=== PATIENT | male | born 1935 | race Hispanic/Latino ===

== ENCOUNTER 2018-06-14 12:32 | Inpatient (IN) | payer MEDICARE ==
[2018-06-14] MEDS ORDERED: NACL 0.9% 1000 ML 1,000 ML IV ONE (12:46)
--- NOTE | 2018-06-14 12:49 | Emergency Department Report ---
ED Altered Mental Status HPI - General Stated Complaint: ALTERED MENTAL STATUS Time Seen by Provider: 06/14/18 12:35 Source: EMS Mode of arrival: Stretcher Limitations: Altered Mental Status - History of Present Illness Initial Comments: Is a 83-year-old male is brought in by EMS for altered mental status. EMS states they were called for a welfare check had 2 right into the house and found the patient in the upstairs bathroom sitting on the floor. Patient is oriented to self only is verbal and follows commands. Patient's D stick in route was 175. Patient was diaphoretic per EMS. MD Complaint: altered mental status, confusion, weakness Severity: severe - Related Data Home Medications Medication Instructions Recorded Confirmed Last Taken Unobtainable 06/14/18 06/14/18 Unknown Allergies Allergy/AdvReac Type Severity Reaction Status Date / Time Unable to Assess Allergy Unverified 06/14/18 12:56 ED Review of Systems ROS: Stated complaint: ALTERED MENTAL STATUS Other details as noted in HPI Comment: Unobtainable due to pts medical conditions ED Past Medical Hx - Past Medical History Previous Medical History?: Yes Hx Hypertension: Yes Hx Diabetes: Yes Hx Psychiatric Treatment: Yes (schizo) - Surgical History Past Surgical History?: No - Family History Family history: no significant - Social History Smoking Status: Unknown if ever smoked Substance Use Type: None - Medications Home Medications: Home Medications Medication Instructions Recorded Confirmed Last Taken Type Unobtainable 06/14/18 06/14/18 Unknown History ED Physical Exam - General Limitations: Altered Mental Status General appearance: alert, in no apparent distress, obese - Head Head exam: Present: atraumatic, normocephalic - Eye Eye exam: Present: normal appearance, PERRL Pupils: Present: normal accommodation - ENT ENT exam: Present: mucous membranes dry - Neck Neck exam: Present: normal inspection - Respiratory Respiratory exam: Present: normal lung sounds bilaterally. Absent: respiratory distress - Cardiovascular Cardiovascular Exam: Present: regular rate, normal rhythm. Absent: systolic murmur, diastolic murmur, rubs, gallop - GI/Abdominal GI/Abdominal exam: Present: soft, normal bowel sounds - Rectal Rectal exam: Present: deferred - Extremities Exam Extremities exam: Present: normal inspection, full ROM - Back Exam Back exam: Present: normal inspection - Neurological Exam Neurological exam: Present: alert, altered - Expanded Neurological Exam Expanded Best Eye Response (Lowell): (4) open spontaneously Best Motor Response (Lowell): (6) obeys commands Best Verbal Response (Betty): (4) confused conversation Lowell Total: 14 - Skin Skin exam: Present: warm, dry, intact, normal color. Absent: rash - Assessment Assessment Interval: Baseline - Level of Consciousness 1a. Level of Consciousness: alert - LOC Questions 1b. LOC Questions: answers 1 question correctly - LOC Command 1c. LOC Commands: performs tasks correctly - Best Gaze 2. Best Gaze: normal - Visual 3. Visual: no visual loss - Facial Palsy 4. Facial Palsy: normal symmetrical movement - Motor Arm 5b. Motor Arm Right: no drift 5a. Motor Arm Left: no drift - Motor Leg 6a. Motor Leg Left: no drift 6b. Motor Leg Right: no drift - Limb Ataxia 7. Limb Ataxia: absent - Sensory 8. Sensory: normal - Best Language 9. Best Language: no aphasia - Dysarthria 10. Dysarthria: normal - Extinction and Inattention 11. Extinction/Inattention: no abnormality - Scoring Total Score: 1 Stroke Severity: Minor Stroke ED Course Vital Signs 06/14/18 06/14/18 06/14/18 12:40 12:46 13:00 Temperature 100.4 F H Pulse Rate 78 80 76 Respiratory 16 28 H 24 Rate Blood Pressure 151/77 151/77 O2 Sat by Pulse 100 96 94 Oximetry 06/14/18 06/14/18 06/14/18 13:04 13:16 13:30 Temperature Pulse Rate Respiratory Rate Blood Pressure 152/71 152/71 O2 Sat by Pulse 100 95 Oximetry 06/14/18 06/14/18 06/14/18 14:13 14:40 14:55 Temperature Pulse Rate 96 H Respiratory 26 H 38 H Rate Blood Pressure 152/71 152/71 152/71 O2 Sat by Pulse Oximetry 06/14/18 06/14/18 16:16 16:30 Temperature Pulse Rate 74 64 Respiratory 14 19 Rate Blood Pressure 152/71 O2 Sat by Pulse 94 Oximetry - Reevaluation(s) Reevaluation #1: Family bedside. Family states he is on lithium for schizophrenia. Patient has a past medical history of hypertension, hyperlipidemia, and diabetes. 06/14/18 15:13 Reevaluation #2: Dr. Wiggins consulted for admission. Dr. Wiggins to [facility] care. Case discussed fully with Dr. Wiggins. Discussed plan of care with patient and family. Family agrees with plan of care and admission. pt more active in bed. 06/14/18 18:51 - Lab Data Result diagrams: 06/14/18 16:22 06/14/18 Unknown Lab Results 06/14/18 06/14/18 06/14/18 Range/Units 13:50 14:05 16:22 WBC 15.9 H (4.5-11.0) K/mm3 RBC 5.04 H (3.65-5.03) M/mm3 Hgb 14.9 (11.8-15.2) gm/dl Hct 45.5 (35.5-45.6) % MCV 90 (84-94) fl MCH 30 (28-32) pg MCHC 33 (32-34) % RDW 15.2 (13.2-15.2) % Plt Count 204 (140-440) K/mm3 Lymph % (Auto) 8.0 L (13.4-35.0) % Hall % (Auto) 8.9 H (0.0-7.3) % Eos % (Auto) 0.0 (0.0-4.3) % Baso % (Auto) 0.2 (0.0-1.8) % Lymph # 1.3 (1.2-5.4) K/mm3 Hall # 1.4 H (0.0-0.8) K/mm3 Eos # 0.0 (0.0-0.4) K/mm3 Baso # 0.0 (0.0-0.1) K/mm3 Seg Neutrophils % 82.9 H (40.0-70.0) % Seg Neutrophils # 13.2 H (1.8-7.7) K/mm3 Sodium (137-145) mmol/L Potassium (3.6-5.0) mmol/L Chloride (98-107) mmol/L Carbon Dioxide (22-30) mmol/L Anion Gap mmol/L BUN (9-20) mg/dL Creatinine (0.8-1.5) mg/dL Estimated GFR ml/min BUN/Creatinine Ratio % Glucose (75-100) mg/dL POC Glucose 149 H (70-105) Lactic Acid (0.7-2.0) mmol/L Calcium (8.4-10.2) mg/dL Total Bilirubin (0.1-1.2) mg/dL AST (5-40) units/L ALT (7-56) units/L Alkaline Phosphatase (35-129) units/L Ammonia 40.0 (25-60) umol/L Troponin T (0.00-0.029) ng/mL Total Protein (6.3-8.2) g/dL Albumin (3.9-5) g/dL Albumin/Globulin Ratio % Triglycerides (2-149) mg/dL Cholesterol (50-199) mg/dL LDL Cholesterol Direct (50-130) mg/dL HDL Cholesterol (40-59) mg/dL Cholesterol/HDL Ratio % Urine Color (Yellow) Urine Turbidity (Clear) Urine pH (5.0-7.0) Ur Specific [place] (1.003-1.030) Urine Protein (Negative) mg/dL Urine Glucose (UA) (Negative) mg/dL Urine Ketones (Negative) mg/dL Urine Blood (Negative) Urine Nitrite (Negative) Urine Bilirubin (Negative) Urine Urobilinogen (<2.0) mg/dL Ur Leukocyte Esterase (Negative) Urine WBC (Auto) (0.0-6.0) /HPF Urine RBC (Auto) (0.0-6.0) /HPF U Epithel Cells (Auto) (0-13.0) /HPF Urine Bacteria (Auto) (Negative) /HPF Urine WBC Clumps /HPF Hyaline Casts /LPF Granular Casts /LPF Urine Mucus /HPF Salicylates (2.8-20.0) mg/dL Urine Opiates Screen Urine Methadone Screen Acetaminophen (10.0-30.0) ug/mL Ur Barbiturates Screen Ur Phencyclidine Scrn Ur Amphetamines Screen U Benzodiazepines Scrn Neola (0.0-1.2) mmol/L Urine Cocaine Screen U Marijuana (THC) Screen Drugs of Abuse Note Plasma/Serum Alcohol (0-0.07) % 06/14/18 06/14/18 06/14/18 Range/Units 16:22 16:22 16:44 WBC (4.5-11.0) K/mm3 RBC (3.65-5.03) M/mm3 Hgb (11.8-15.2) gm/dl Hct (35.5-45.6) % MCV (84-94) fl MCH (28-32) pg MCHC (32-34) % RDW (13.2-15.2) % Plt Count (140-440) K/mm3 Lymph % (Auto) (13.4-35.0) % Hall % (Auto) (0.0-7.3) % Eos % (Auto) (0.0-4.3) % Baso % (Auto) (0.0-1.8) % Lymph # (1.2-5.4) K/mm3 Hall # (0.0-0.8) K/mm3 Eos # (0.0-0.4) K/mm3 Baso # (0.0-0.1) K/mm3 Seg Neutrophils % (40.0-70.0) % Seg Neutrophils # (1.8-7.7) K/mm3 Sodium (137-145) mmol/L Potassium (3.6-5.0) mmol/L Chloride (98-107) mmol/L Carbon Dioxide (22-30) mmol/L Anion Gap mmol/L BUN (9-20) mg/dL Creatinine (0.8-1.5) mg/dL Estimated GFR ml/min BUN/Creatinine Ratio % Glucose (75-100) mg/dL POC Glucose (70-105) Lactic Acid 2.90 H* (0.7-2.0) mmol/L Calcium (8.4-10.2) mg/dL Total Bilirubin (0.1-1.2) mg/dL AST (5-40) units/L ALT (7-56) units/L Alkaline Phosphatase (35-129) units/L Ammonia (25-60) umol/L Troponin T (0.00-0.029) ng/mL Total Protein (6.3-8.2) g/dL Albumin (3.9-5) g/dL Albumin/Globulin Ratio % Triglycerides (2-149) mg/dL Cholesterol (50-199) mg/dL LDL Cholesterol Direct (50-130) mg/dL HDL Cholesterol (40-59) mg/dL Cholesterol/HDL Ratio % Urine Color Yellow (Yellow) Urine Turbidity Clear (Clear) Urine pH 5.0 (5.0-7.0) Ur Specific [place] 1.020 (1.003-1.030) Urine Protein 100 mg/dl (Negative) mg/dL Urine Glucose (UA) 50 (Negative) mg/dL Urine Ketones Tr (Negative) mg/dL Urine Blood Lg (Negative) Urine Nitrite Neg (Negative) Urine Bilirubin Neg (Negative) Urine Urobilinogen < 2.0 (<2.0) mg/dL Ur Leukocyte Esterase Neg (Negative) Urine WBC (Auto) 6.0 (0.0-6.0) /HPF Urine RBC (Auto) 2.0 (0.0-6.0) /HPF U Epithel Cells (Auto) < 1.0 (0-13.0) /HPF Urine Bacteria (Auto) 1+ (Negative) /HPF Urine WBC Clumps Few /HPF Hyaline Casts 1 /LPF Granular Casts 3 /LPF Urine Mucus Few /HPF Salicylates (2.8-20.0) mg/dL Urine Opiates Screen Urine Methadone Screen Acetaminophen (10.0-30.0) ug/mL Ur Barbiturates Screen Ur Phencyclidine Scrn Ur Amphetamines Screen U Benzodiazepines Scrn [place]ola 1.5 H (0.0-1.2) mmol/L Urine Cocaine Screen U Marijuana (THC) Screen Drugs of Abuse Note Plasma/Serum Alcohol (0-0.07) % 06/14/18 06/14/18 06/14/18 Range/Units 16:44 Unknown Unknown WBC (4.5-11.0) K/mm3 RBC (3.65-5.03) M/mm3 Hgb (11.8-15.2) gm/dl Hct (35.5-45.6) % MCV (84-94) fl MCH (28-32) pg MCHC (32-34) % RDW (13.2-15.2) % Plt Count (140-440) K/mm3 Lymph % (Auto) (13.4-35.0) % Hall % (Auto) (0.0-7.3) % Eos % (Auto) (0.0-4.3) % Baso % (Auto) (0.0-1.8) % Lymph # (1.2-5.4) K/mm3 Hall # (0.0-0.8) K/mm3 Eos # (0.0-0.4) K/mm3 Baso # (0.0-0.1) K/mm3 Seg Neutrophils % (40.0-70.0) % Seg Neutrophils # (1.8-7.7) K/mm3 Sodium 146 H (137-145) mmol/L Potassium 4.1 (3.6-5.0) mmol/L Chloride 99.8 (98-107) mmol/L Carbon Dioxide 22 (22-30) mmol/L Anion Gap 28 mmol/L BUN 60 H (9-20) mg/dL Creatinine 2.9 H (0.8-1.5) mg/dL Estimated GFR 21 ml/min BUN/Creatinine Ratio 21 % Glucose 170 H (75-100) mg/dL POC Glucose (70-105) Lactic Acid 3.40 H* (0.7-2.0) mmol/L Calcium 11.2 H (8.4-10.2) mg/dL Total Bilirubin 0.80 (0.1-1.2) mg/dL AST 51 H (5-40) units/L ALT 24 (7-56) units/L Alkaline Phosphatase 110 (35-129) units/L Ammonia (25-60) umol/L Troponin T 0.036 H (0.00-0.029) ng/mL Total Protein 8.3 H (6.3-8.2) g/dL Albumin 5.0 (3.9-5) g/dL Albumin/Globulin Ratio 1.5 % Triglycerides 156 H (2-149) mg/dL Cholesterol 73 (50-199) mg/dL LDL Cholesterol Direct 17 L (50-130) mg/dL HDL Cholesterol 33 L (40-59) mg/dL Cholesterol/HDL Ratio 2.21 % Urine Color (Yellow) Urine Turbidity (Clear) Urine pH (5.0-7.0) Ur Specific [place] (1.003-1.030) Urine Protein (Negative) mg/dL Urine Glucose (UA) (Negative) mg/dL Urine Ketones (Negative) mg/dL Urine Blood (Negative) Urine Nitrite (Negative) Urine Bilirubin (Negative) Urine Urobilinogen (<2.0) mg/dL Ur Leukocyte Esterase (Negative) Urine WBC (Auto) (0.0-6.0) /HPF Urine RBC (Auto) (0.0-6.0) /HPF U Epithel Cells (Auto) (0-13.0) /HPF Urine Bacteria (Auto) (Negative) /HPF Urine WBC Clumps /HPF Hyaline Casts /LPF Granular Casts /LPF Urine Mucus /HPF Salicylates (2.8-20.0) mg/dL Urine Opiates Screen Presumptive negative Urine Methadone Screen Presumptive negative Acetaminophen (10.0-30.0) ug/mL Ur Barbiturates Screen Presumptive negative Ur Phencyclidine Scrn Presumptive negative Ur Amphetamines Screen Presumptive negative U Benzodiazepines Scrn Presumptive negative [place]ola (0.0-1.2) mmol/L Urine Cocaine Screen Presumptive negative U Marijuana (THC) Screen Presumptive negative Drugs of Abuse Note Disclamer Plasma/Serum Alcohol (0-0.07) % 06/14/18 06/14/18 06/14/18 Range/Units Unknown Unknown Unknown WBC (4.5-11.0) K/mm3 RBC (3.65-5.03) M/mm3 Hgb (11.8-15.2) gm/dl Hct (35.5-45.6) % MCV (84-94) fl MCH (28-32) pg MCHC (32-34) % RDW (13.2-15.2) % Plt Count (140-440) K/mm3 Lymph % (Auto) (13.4-35.0) % Hall % (Auto) (0.0-7.3) % Eos % (Auto) (0.0-4.3) % Baso % (Auto) (0.0-1.8) % Lymph # (1.2-5.4) K/mm3 Hall # (0.0-0.8) K/mm3 Eos # (0.0-0.4) K/mm3 Baso # (0.0-0.1) K/mm3 Seg Neutrophils % (40.0-70.0) % Seg Neutrophils # (1.8-7.7) K/mm3 Sodium (137-145) mmol/L Potassium (3.6-5.0) mmol/L Chloride (98-107) mmol/L Carbon Dioxide (22-30) mmol/L Anion Gap mmol/L BUN (9-20) mg/dL Creatinine (0.8-1.5) mg/dL Estimated GFR ml/min BUN/Creatinine Ratio % Glucose (75-100) mg/dL POC Glucose (70-105) Lactic Acid (0.7-2.0) mmol/L Calcium (8.4-10.2) mg/dL Total Bilirubin (0.1-1.2) mg/dL AST (5-40) units/L ALT (7-56) units/L Alkaline Phosphatase (35-129) units/L Ammonia (25-60) umol/L Troponin T (0.00-0.029) ng/mL Total Protein (6.3-8.2) g/dL Albumin (3.9-5) g/dL Albumin/Globulin Ratio % Triglycerides (2-149) mg/dL Cholesterol (50-199) mg/dL LDL Cholesterol Direct (50-130) mg/dL HDL Cholesterol (40-59) mg/dL Cholesterol/HDL Ratio % Urine Color (Yellow) Urine Turbidity (Clear) Urine pH (5.0-7.0) Ur Specific [place] (1.003-1.030) Urine Protein (Negative) mg/dL Urine Glucose (UA) (Negative) mg/dL Urine Ketones (Negative) mg/dL Urine Blood (Negative) Urine Nitrite (Negative) Urine Bilirubin (Negative) Urine Urobilinogen (<2.0) mg/dL Ur Leukocyte Esterase (Negative) Urine WBC (Auto) (0.0-6.0) /HPF Urine RBC (Auto) (0.0-6.0) /HPF U Epithel Cells (Auto) (0-13.0) /HPF Urine Bacteria (Auto) (Negative) /HPF Urine WBC Clumps /HPF Hyaline Casts /LPF Granular Casts /LPF Urine Mucus /HPF Salicylates < 0.3 L (2.8-20.0) mg/dL Urine Opiates Screen Urine Methadone Screen Acetaminophen < 5.0 L (10.0-30.0) ug/mL Ur Barbiturates Screen Ur Phencyclidine Scrn Ur Amphetamines Screen U Benzodiazepines Scrn [place] (0.0-1.2) mmol/L Urine Cocaine Screen U Marijuana (THC) Screen Drugs of Abuse Note Plasma/Serum Alcohol < 0.01 (0-0.07) % - Radiology Data Radiology results: report reviewed neg cxr. neg ct head. - Medical Decision Making Patient is an 83-year-old male that presents emergent with altered mental status. Patient will be admitted to the hospitalist service for further evaluation and treatment. - Differential Diagnosis ams. uti. lithium tox. metabolic acid. Critical Care Time: Yes Critical care attestation.: If time is entered above; I have spent that time in minutes in the direct care of this critically ill patient, excluding procedure time. Critical Care Time: 45 minutes spent for critical care time ED Disposition Clinical Impression: Lactic acid acidosis, Elevated troponin I level, Elevated lithium level, Acute renal insufficiency, Encephalopathy Fever Qualifiers: Fever type: unspecified Qualified Code(s): R50.9 - Fever, unspecified Altered mental status Qualifiers: Altered mental status type: unspecified Qualified Code(s): R41.82 - Altered mental status, unspecified ARF (acute renal failure) Qualifiers: Acute renal failure type: unspecified Qualified Code(s): N17.9 - Acute kidney failure, unspecified [place]ola toxicity Qualifiers: Encounter type: initial encounter Injury intent: accidental or unintentional Qualified Code(s): T56.891A - Toxic effect of other metals, accidental ( unintentional), initial encounter Disposition: DC-09 OP ADMIT IP TO THIS HOSP Is pt being admited?: Yes Does the pt Need Aspirin: No Condition: Critical Referrals: PRIMARY CARE, [Primary Care Provider] - 3-5 Days Time of Disposition: 18:50
--- NOTE | 2018-06-14 14:00 | Cat Scan Report ---
FINAL REPORT EXAM: CT HEAD/BRAIN WO CON HISTORY: Altered Mental Status TECHNIQUE: Noncontrast CT axial images of the brain. PRIORS: None. FINDINGS: No parenchymal mass, mass effect, hemorrhage, midline shift or hydrocephalus. No evidence of acute cortical infarct. No abnormal, extra-axial fluid or air collection. 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 Age-related volume loss. Osseous calvarium grossly intact. Diffuse opacification of left mastoid air complex. IMPRESSION: 1. No acute intracranial findings. 2. Left mastoid sinus disease.
--- NOTE | 2018-06-14 14:15 | XRay Report ---
FINAL REPORT EXAM: XR CHEST 1V AP HISTORY: Altered Mental Status TECHNIQUE: Single, portable chest x-ray. PRIORS: None. FINDINGS: Patient partially rotated to the left. Left subclavian transvenous cardiac device noted. Cardiac and mediastinal silhouette within normal limits. Lungs are normally expanded, without significant vascular congestion. No focal consolidation or apparent pneumothorax. Bony thorax grossly unremarkable. IMPRESSION: 1. No acute findings.
[2018-06-14 14:20] LABS: Calcium 11.2 mg/dL (8.4-10.2)
[2018-06-14] MEDS ORDERED: NACL 0.9% 1000 ML IV ONE (14:30)
[2018-06-14 14:32] LABS: Chol/HDL Ratio 2.21 %
[2018-06-14] MEDS ORDERED: NACL 0.9% 1000 ML 3,000 ML ONE (15:51)
[2018-06-14 16:34] LABS: Basophils % (Auto) 0.2 % (0.0-1.8); Hematocrit 45.5 % (35.5-45.6); Hemoglobin 14.9 gm/dl (11.8-15.2); Lymphocytes # (Auto) 1.3 K/mm3 (1.2-5.4); Mean Corpuscular HGB Conc 33 % (32-34); Mean Corpuscular Hemoglobin 30 pg (28-32); Mean Corpuscular Volume 90 fl (84-94); Monocytes # (Auto) 1.4 K/mm3 (0.0-0.8); Monocytes % (Auto) 8.9 % (0.0-7.3); Platelet Count 204 K/mm3 (140-440); Red Blood Count 5.04 M/mm3 (3.65-5.03); Red Cell Distribution Width 15.2 % (13.2-15.2)
[2018-06-14 17:23] LABS: Bacteria,Urine 1+ /HPF (Negative); Bilirubin,Urine NEG (Negative); Blood,Urine LG (Negative); Color,Urine Yellow (Yellow); Granular Casts,Urine 3 /LPF; Hyaline Casts,Urine 1 /LPF; Mucus,Urine FEW /HPF; Urobilinogen,Urine < 2.0 mg/dL (<2.0)
[2018-06-14 17:30] LABS: Amphetamine Screen,Urine PRESUMPTIVE NEGATIVE; Benzodiazepines Screen,Urine PRESUMPTIVE NEGATIVE; Cannabinoid Screen,Urine PRESUMPTIVE NEGATIVE; Cocaine Screen,Urine PRESUMPTIVE NEGATIVE; Methadone Screen,Urine PRESUMPTIVE NEGATIVE; Opiate Screen,Urine PRESUMPTIVE NEGATIVE
--- NOTE | 2018-06-14 18:34 | History and Physical Report ---
History of Present Illness Chief complaint: unresponsive History of present illness: 83 YO Male with obesity presents to ED for evaluation. Pt is confused/lethargic and unable to provide history. Pt history taken from EMS, and ED staff. per staff, EMS was notified to [facility] safety and welfare check on the patient. Upon arrival the patient was found down and unresponsive in the bathroom. Pt transported to [facility] for further care and evaluation. Pt was seen and evaluated in ED and found to have encephalopathy, and acute renal failure, as well as lithium toxicity. Pt admitted to Medications and Allergies Allergies Allergy/AdvReac Type Severity Reaction Status Date / Time Unable to Assess Allergy Unverified 06/14/18 12:56 Home Medications Medication Instructions Recorded Confirmed Last Taken Type Unobtainable 06/14/18 06/14/18 Unknown History Exam - Constitutional Vitals: Temp Pulse Resp BP Pulse Ox 100.4 F H 64 19 152/71 94 06/14/18 12:40 06/14/18 16:30 06/14/18 16:30 06/14/18 16:30 06/14/18 16:30 Results - Labs CBC & Chem 7: 06/14/18 16:22 06/14/18 Unknown Labs: Abnormal lab results 06/14/18 06/14/18 06/14/18 Range/Units 13:50 16:22 16:22 WBC 15.9 H (4.5-11.0) K/mm3 RBC 5.04 H (3.65-5.03) M/mm3 Lymph % (Auto) 8.0 L (13.4-35.0) % Craig % (Auto) 8.9 H (0.0-7.3) % Craig # 1.4 H (0.0-0.8) K/mm3 Seg Neutrophils % 82.9 H (40.0-70.0) % Seg Neutrophils # 13.2 H (1.8-7.7) K/mm3 Sodium (137-145) mmol/L BUN (9-20) mg/dL Creatinine (0.8-1.5) mg/dL Glucose (75-100) mg/dL POC Glucose 149 H (70-105) Lactic Acid 2.90 H* (0.7-2.0) mmol/L Calcium (8.4-10.2) mg/dL AST (5-40) units/L Troponin T (0.00-0.029) ng/mL Total Protein (6.3-8.2) g/dL Triglycerides (2-149) mg/dL LDL Cholesterol Direct (50-130) mg/dL HDL Cholesterol (40-59) mg/dL Salicylates (2.8-20.0) mg/dL Acetaminophen (10.0-30.0) ug/mL [place] (0.0-1.2) mmol/L 06/14/18 06/14/18 06/14/18 Range/Units 16:22 Unknown Unknown WBC (4.5-11.0) K/mm3 RBC (3.65-5.03) M/mm3 Lymph % (Auto) (13.4-35.0) % Craig % (Auto) (0.0-7.3) % Craig # (0.0-0.8) K/mm3 Seg Neutrophils % (40.0-70.0) % Seg Neutrophils # (1.8-7.7) K/mm3 Sodium 146 H (137-145) mmol/L BUN 60 H (9-20) mg/dL Creatinine 2.9 H (0.8-1.5) mg/dL Glucose 170 H (75-100) mg/dL POC Glucose (70-105) Lactic Acid 3.40 H* (0.7-2.0) mmol/L Calcium 11.2 H (8.4-10.2) mg/dL AST 51 H (5-40) units/L Troponin T 0.036 H (0.00-0.029) ng/mL Total Protein 8.3 H (6.3-8.2) g/dL Triglycerides 156 H (2-149) mg/dL LDL Cholesterol Direct 17 L (50-130) mg/dL HDL Cholesterol 33 L (40-59) mg/dL Salicylates (2.8-20.0) mg/dL Acetaminophen (10.0-30.0) ug/mL [place] 1.5 H (0.0-1.2) mmol/L 06/14/18 06/14/18 Range/Units Unknown Unknown WBC (4.5-11.0) K/mm3 RBC (3.65-5.03) M/mm3 Lymph % (Auto) (13.4-35.0) % Craig % (Auto) (0.0-7.3) % Craig # (0.0-0.8) K/mm3 Seg Neutrophils % (40.0-70.0) % Seg Neutrophils # (1.8-7.7) K/mm3 Sodium (137-145) mmol/L BUN (9-20) mg/dL Creatinine (0.8-1.5) mg/dL Glucose (75-100) mg/dL POC Glucose (70-105) Lactic Acid (0.7-2.0) mmol/L Calcium (8.4-10.2) mg/dL AST (5-40) units/L Troponin T (0.00-0.029) ng/mL Total Protein (6.3-8.2) g/dL Triglycerides (2-149) mg/dL LDL Cholesterol Direct (50-130) mg/dL HDL Cholesterol (40-59) mg/dL Salicylates < 0.3 L (2.8-20.0) mg/dL Acetaminophen < 5.0 L (10.0-30.0) ug/mL [place] (0.0-1.2) mmol/L Assessment and Plan - Patient Problems (1) ARF (acute renal failure) Current Visit: Yes Status: Acute Qualifiers: Acute renal failure type: with acute tubular necrosis Qualified Code(s): N17.0 - Acute kidney failure with tubular necrosis Plan to address problem: IVF resuscitation, monitor uop q shift, urinalysis, repeat bmp, urine electrolytes. (2) Encephalopathy Current Visit: Yes Status: Acute Plan to address problem: CT head, neuro checks, aspiration precautions, seizure precautions. (3) [place] toxicity Current Visit: Yes Status: Acute Qualifiers: Encounter type: initial encounter Plan to address problem: IVF resuscitation therapy, supportive care, remote telemetry, repeat lithium level. [place] level in significantly less than 4. Urgent dialysis not indicated at this time. continue IVF resuscitation. (4) Lactic acid acidosis Current Visit: Yes Status: Acute Plan to address problem: IVF resuscitation, monitor uop q shift, repeat lactic acid level, bicarbonate x1 (5) DVT prophylaxis Current Visit: Yes Status: Acute Plan to address problem: SCD to BLE while in bed.
[2018-06-14] MEDS ORDERED: SODIUM CHLORIDE FLUSH SYRINGE 10 ML IV PRN (18:46)
[2018-06-14] MEDS ORDERED: TYLENOL PO PRN (18:46)
[2018-06-14] MEDS ORDERED: ZOFRAN IV PRN (18:46)
[2018-06-14] MEDS ORDERED: PROVENTIL IH PRN (18:46)
--- NOTE | 2018-06-14 18:50 | History and Physical Report ---
History of Present Illness Chief complaint: unresponsive History of present illness: 83 YO Male with obesity presents to ED for evaluation. Pt is confused/lethargic and unable to provide history. Pt history taken from EMS, and ED staff. per staff, EMS was notified to a safety and welfare check on the patient. Upon arrival the patient was found down and unresponsive in the bathroom. Pt transported to [facility] for further care and evaluation. Pt was seen and evaluated in ED and found to have encephalopathy, and acute renal failure, as well as lithium toxicity. Pt admitted to Past History Past Medical History: other (obesity) Past Surgical History: No surgical history, Other (unobtainable) Social history: no significant social history, other (unobtainable) Family history: no significant family history (unobtainable.) Medications and Allergies Allergies Allergy/AdvReac Type Severity Reaction Status Date / Time Unable to Assess Allergy Unverified 06/14/18 12:56 Home Medications Medication Instructions Recorded Confirmed Last Taken Type Unobtainable 06/14/18 06/14/18 Unknown History Active Meds: Active Medications Acetaminophen (Tylenol) 650 mg PO Q4H PRN PRN Reason: Pain MILD(1-3)/Fever >100.5/[place] Albuterol (Proventil) 2.5 mg IH Q4HRT PRN PRN Reason: Shortness Of Breath Sodium Chloride (Nacl 0.9% 1000 Ml) 1,000 mls @ 125 mls/hr IV DIRECT SAMI Ondansetron HCl (Zofran) 4 mg IV Q8H PRN PRN Reason: Nausea And Vomiting Sodium Chloride (Sodium Chloride Flush Syringe 10 Ml) 10 ml IV BID SAMI Sodium Chloride (Sodium Chloride Flush Syringe 10 Ml) 10 ml IV PRN PRN PRN Reason: LINE FLUSH Review of Systems ROS unobtainable: due to mental status Exam - Constitutional Vitals: Temp Pulse Resp BP Pulse Ox 100.4 F H 64 19 152/71 94 06/14/18 12:40 06/14/18 16:30 06/14/18 16:30 06/14/18 16:30 06/14/18 16:30 General appearance: Present: mild distress, obese - EENT Eyes: Present: PERRL - Neck Neck: Present: supple, normal ROM - Respiratory Respiratory: bilateral: CTA - Cardiovascular Heart Sounds: Present: S1 & S2. Absent: rub, click - Extremities Extremities: pulses symmetrical, No edema Peripheral Pulses: within normal limits - Abdominal General gastrointestinal: Present: soft, non-tender, non-distended, normal bowel sounds Male genitourinary: Present: normal - Integumentary Integumentary: Present: clear, dry, clammy, decreased turgor - Musculoskeletal Musculoskeletal: generalized weakness - Psychiatric Psychiatric: no intact judgment & insight, no memory intact - Neurologic Neurologic: no gait normal Results - Labs CBC & Chem 7: 06/14/18 16:22 06/14/18 Unknown Labs: Abnormal lab results 06/14/18 06/14/18 06/14/18 Range/Units 13:50 16:22 16:22 WBC 15.9 H (4.5-11.0) K/mm3 RBC 5.04 H (3.65-5.03) M/mm3 Lymph % (Auto) 8.0 L (13.4-35.0) % [place] % (Auto) 8.9 H (0.0-7.3) % [place] # 1.4 H (0.0-0.8) K/mm3 Seg Neutrophils % 82.9 H (40.0-70.0) % Seg Neutrophils # 13.2 H (1.8-7.7) K/mm3 Sodium (137-145) mmol/L BUN (9-20) mg/dL Creatinine (0.8-1.5) mg/dL Glucose (75-100) mg/dL POC Glucose 149 H (70-105) Lactic Acid 2.90 H* (0.7-2.0) mmol/L Calcium (8.4-10.2) mg/dL AST (5-40) units/L Troponin T (0.00-0.029) ng/mL Total Protein (6.3-8.2) g/dL Triglycerides (2-149) mg/dL LDL Cholesterol Direct (50-130) mg/dL HDL Cholesterol (40-59) mg/dL Salicylates (2.8-20.0) mg/dL Acetaminophen (10.0-30.0) ug/mL [place] (0.0-1.2) mmol/L 06/14/18 06/14/18 06/14/18 Range/Units 16:22 Unknown Unknown WBC (4.5-11.0) K/mm3 RBC (3.65-5.03) M/mm3 Lymph % (Auto) (13.4-35.0) % [place] % (Auto) (0.0-7.3) % [place] # (0.0-0.8) K/mm3 Seg Neutrophils % (40.0-70.0) % Seg Neutrophils # (1.8-7.7) K/mm3 Sodium 146 H (137-145) mmol/L BUN 60 H (9-20) mg/dL Creatinine 2.9 H (0.8-1.5) mg/dL Glucose 170 H (75-100) mg/dL POC Glucose (70-105) Lactic Acid 3.40 H* (0.7-2.0) mmol/L Calcium 11.2 H (8.4-10.2) mg/dL AST 51 H (5-40) units/L Troponin T 0.036 H (0.00-0.029) ng/mL Total Protein 8.3 H (6.3-8.2) g/dL Triglycerides 156 H (2-149) mg/dL LDL Cholesterol Direct 17 L (50-130) mg/dL HDL Cholesterol 33 L (40-59) mg/dL Salicylates (2.8-20.0) mg/dL Acetaminophen (10.0-30.0) ug/mL [place] 1.5 H (0.0-1.2) mmol/L 06/14/18 18 Range/Units Unknown Unknown WBC (4.5-11.0) K/mm3 RBC (3.65-5.03) M/mm3 Lymph % (Auto) (13.4-35.0) % [place] % (Auto) (0.0-7.3) % [place] # (0.0-0.8) K/mm3 Seg Neutrophils % (40.0-70.0) % Seg Neutrophils # (1.8-7.7) K/mm3 Sodium (137-145) mmol/L BUN (9-20) mg/dL Creatinine (0.8-1.5) mg/dL Glucose (75-100) mg/dL POC Glucose (70-105) Lactic Acid (0.7-2.0) mmol/L Calcium (8.4-10.2) mg/dL AST (5-40) units/L Troponin T (0.00-0.029) ng/mL Total Protein (6.3-8.2) g/dL Triglycerides (2-149) mg/dL LDL Cholesterol Direct (50-130) mg/dL HDL Cholesterol (40-59) mg/dL Salicylates < 0.3 L (2.8-20.0) mg/dL Acetaminophen < 5.0 L (10.0-30.0) ug/mL [place] (0.0-1.2) mmol/L Assessment and Plan - Patient Problems (1) ARF (acute renal failure) Current Visit: Yes Status: Acute Qualifiers: Acute renal failure type: with acute tubular necrosis Qualified Code(s): N17.0 - Acute kidney failure with tubular necrosis Plan to address problem: IVF resuscitation, monitor uop q shift, urinalysis, repeat bmp, urine electrolytes. (2) Encephalopathy Current Visit: Yes Status: Acute Plan to address problem: CT head, neuro checks, aspiration precautions, seizure precautions. (3) [place] toxicity Current Visit: Yes Status: Acute Qualifiers: Encounter type: initial encounter Plan to address problem: IVF resuscitation therapy, supportive care, remote telemetry, repeat lithium level. [place] level in significantly less than 4. Urgent dialysis not indicated at this time. continue IVF resuscitation. (4) Lactic acid acidosis Current Visit: Yes Status: Acute Plan to address problem: IVF resuscitation, monitor uop q shift, repeat lactic acid level, bicarbonate x1 (5) DVT prophylaxis Current Visit: Yes Status: Acute Plan to address problem: SCD to BLE while in bed.
[2018-06-14] MEDS ORDERED: NACL 0.9% 1000 ML 1,000 ML IV SCH (19:00)
[2018-06-14] MEDS: ATIVAN IV PRN (19:52)
[2018-06-14] MEDS: NORVASC PO SCH (20:48)
[2018-06-14] MEDS: SODIUM CHLORIDE FLUSH SYRINGE 10 ML IV SCH (23:00)
[2018-06-15] MEDS ORDERED: TYLENOL PR PRN (04:38)
[2018-06-15] MEDS: ATIVAN IV PRN ×3 (05:07→17:54)
[2018-06-15] MEDS: SODIUM CHLORIDE FLUSH SYRINGE 10 ML IV SCH (11:02)
[2018-06-15] MEDS: NORVASC PO SCH (11:02)
[2018-06-15] MEDS: LEVAQUIN 250MG/50ML 250 MG/50 ML BAG IV SCH (12:31)
[2018-06-15 15:15] LABS: Hematocrit 44.7 % (35.5-45.6); Hemoglobin 14.7 gm/dl (11.8-15.2); Mean Corpuscular HGB Conc 33 % (32-34); Mean Corpuscular Hemoglobin 30 pg (28-32); Mean Corpuscular Volume 91 fl (84-94); Platelet Count 171 K/mm3 (140-440); Red Blood Count 4.91 M/mm3 (3.65-5.03); Red Cell Distribution Width 15.7 % (13.2-15.2)
[2018-06-15 15:22] LABS: Calcium 9.4 mg/dL (8.4-10.2)
--- NOTE | 2018-06-15 15:34 | Progress Note ---
Assessment and Plan /Acute renal failure IVF resuscitation, monitor uop q shift, repeat bmp, If no improvement, will consult renal / Encephalopathy CT head unremarkable, cont neuro checks, aspiration precautions, seizure precautions. /[place] toxicity [place] level in significantly less than 4. Urgent dialysis not indicated at this time. continue IVF resuscitation. consult Psych / h/o schizophrenia consulted psych, hold home meds /Hypernatremia, d5 1/2NS / DVT prophylaxis SCD to BLE while in bed. Brief History: 83 YO Male presents to ED for evaluation of AMS by EMS. Pt was confused/ lethargic on admission and unable to provide history. per staff, EMS was notified by daughter, Upon arrival the patient was found down and unresponsive in the bathroom. Pt transported to [facility] for further care and evaluation. Pt was seen and evaluated in ED and found to have encephalopathy, and acute renal failure, as well as lithium toxicity. Subjective Date of service: 06/15/18 Interval history: Pt seen and examined Restraint, updated family at bedside Objective - Constitutional Vitals: Vital Signs - 12hr 06/15/18 06/15/18 06/15/18 04:25 04:32 06:00 Temperature 101.0 F H 97.9 F Pulse Rate 62 82 Respiratory 24 20 Rate Blood Pressure 176/53 137/95 O2 Sat by Pulse 99 Oximetry 06/15/18 06/15/18 06/15/18 07:30 10:00 11:12 Temperature 99.9 F H 98.6 F Pulse Rate 60 64 Respiratory 22 18 22 Rate Blood Pressure 161/66 162/72 O2 Sat by Pulse 90 96 Oximetry General appearance: Present: well-nourished, other (restraint) - EENT Eyes: PERRL ENT: clear oral mucosa, no thrush Ears: bilateral: normal - Neck Neck: supple, normal ROM - Respiratory Respiratory effort: normal Respiratory: bilateral: CTA - Breasts Breasts: normal - Cardiovascular Rhythm: regular Heart Sounds: Present: S1 & S2. Absent: gallop, rub Extremities: pulses intact, No edema, normal color - Gastrointestinal General gastrointestinal: Present: soft, non-tender, non-distended, normal bowel sounds - Integumentary Integumentary: clear, warm, dry - Musculoskeletal Musculoskeletal: 1, strength equal bilaterally - Neurologic Neurologic: no focal deficits - Psychiatric Psychiatric: no appropriate mood/affect - Labs CBC & Chem 7: 06/15/18 13:38 06/15/18 13:38 Labs: Abnormal lab results 06/14/18 06/14/18 06/14/18 Range/Units 16:22 16:22 16:22 WBC 15.9 H (4.5-11.0) K/mm3 RBC 5.04 H (3.65-5.03) M/mm3 RDW (13.2-15.2) % Lymph % (Auto) 8.0 L (13.4-35.0) % [place] % (Auto) 8.9 H (0.0-7.3) % [place] # 1.4 H (0.0-0.8) K/mm3 Seg Neutrophils % 82.9 H (40.0-70.0) % Seg Neutrophils # 13.2 H (1.8-7.7) K/mm3 Sodium (137-145) mmol/L Chloride (98-107) mmol/L Carbon Dioxide (22-30) mmol/L BUN (9-20) mg/dL Creatinine (0.8-1.5) mg/dL Glucose (75-100) mg/dL Lactic Acid 2.90 H* (0.7-2.0) mmol/L [place] 1.5 H (0.0-1.2) mmol/L 06/15/18 06/15/18 Range/Units 13:38 13:38 WBC 14.3 H (4.5-11.0) K/mm3 RBC (3.65-5.03) M/mm3 RDW 15.7 H (13.2-15.2) % Lymph % (Auto) (13.4-35.0) % [place] % (Auto) (0.0-7.3) % [place] # (0.0-0.8) K/mm3 Seg Neutrophils % (40.0-70.0) % Seg Neutrophils # (1.8-7.7) K/mm3 Sodium 153 H (137-145) mmol/L Chloride 116.3 H (98-107) mmol/L Carbon Dioxide 21 L (22-30) mmol/L BUN 46 H (9-20) mg/dL Creatinine 1.9 H (0.8-1.5) mg/dL Glucose 124 H (75-100) mg/dL Lactic Acid (0.7-2.0) mmol/L [place] (0.0-1.2) mmol/L - Imaging and cardiology CT Scan - head: report reviewed (no acute process)
[2018-06-15] MEDS ORDERED: NACL 0.45% 1000 ML 1,000 ML IV SCH (16:00)
[2018-06-16] MEDS: ATIVAN IV PRN ×3 (03:00→19:12)
[2018-06-16] MEDS ORDERED: NACL 0.45% 1000 ML 1,000 ML IV SCH (03:00)
[2018-06-16] MEDS: SODIUM CHLORIDE FLUSH SYRINGE 10 ML IV SCH ×3 (04:01→23:51)
[2018-06-16] MEDS: D5/0.45NS 1,000 ML IV SCH ×2 (04:02→14:32)
[2018-06-16] MEDS: APRESOLINE IV PRN (05:58)
[2018-06-16 06:52] LABS: Basophils % (Auto) 0.2 % (0.0-1.8); Eosinophils % (Auto) 0.2 % (0.0-4.3); Hematocrit 45.6 % (35.5-45.6); Hemoglobin 15.1 gm/dl (11.8-15.2); Lymphocytes # (Auto) 1.3 K/mm3 (1.2-5.4); Lymphocytes % (Auto) 11.7 % (13.4-35.0); Mean Corpuscular HGB Conc 33 % (32-34); Mean Corpuscular Hemoglobin 30 pg (28-32); Mean Corpuscular Volume 90 fl (84-94); Monocytes % (Auto) 8.8 % (0.0-7.3); Platelet Count 171 K/mm3 (140-440); Red Blood Count 5.05 M/mm3 (3.65-5.03); Red Cell Distribution Width 15.6 % (13.2-15.2)
[2018-06-16] MEDS: NORVASC PO SCH (10:02)
[2018-06-16] MEDS: LEVAQUIN 250MG/50ML 250 MG/50 ML BAG IV SCH (12:34)
--- NOTE | 2018-06-16 15:31 | Consultation ---
History of Present Illness - Reason for Consult Consult date: 06/16/18 acute renal failure - History of Present Illness patient is 83 year old male was admitted 2 days for altered mental status, CT head was was negative for acute change, he was noted to have elevated WBC and lactic acid and was started on IVF and antibiotics. on admission is Cr was elevated but slowly improved with IVF. patient is not answer questions. history obtained from chart Past History Past Medical History: other (obesity) Past Surgical History: No surgical history, Other (unobtainable) Social history: no significant social history, other (unobtainable) Family history: no significant family history (unobtainable.) Medications and Allergies Allergies Allergy/AdvReac Type Severity Reaction Status Date / Time Penicillins Allergy Unknown Verified 06/15/18 02:53 Home Medications Medication Instructions Recorded Confirmed Last Taken Type Unobtainable 06/14/18 06/14/18 Unknown History Active Meds: Active Medications Acetaminophen (Tylenol) 650 mg PO Q4H PRN PRN Reason: Pain MILD(1-3)/Fever >100.5/[place] Acetaminophen (Tylenol) 650 mg AR Q4H PRN PRN Reason: Pain, Mild (1-3) Last Admin: 06/15/18 05:08 Dose: 650 mg Albuterol (Proventil) 2.5 mg IH Q4HRT PRN PRN Reason: Shortness Of Breath Amlodipine Besylate (Norvasc) 10 mg PO QDAY [facility] Last Admin: 06/16/18 10:02 Dose: Not Given Hydralazine HCl (Apresoline) 20 mg IV Q6H PRN PRN Reason: Hypertension Last Admin: 06/16/18 05:58 Dose: 20 mg Levofloxacin/Dextrose (Levaquin 250mg/50ml) 250 mg in 50 mls @ 50 mls/hr IV Q24H SAMI Last Admin: 06/16/18 12:34 Dose: 50 mls/hr Dextrose/Sodium Chloride (D5/0.45ns) 1,000 mls @ 100 mls/hr IV DIRECT SAMI Last Admin: 06/16/18 14:32 Dose: 100 mls/hr Lorazepam (Ativan) 1 mg IV Q6H PRN PRN Reason: Agitation Last Admin: 06/16/18 11:03 Dose: 1 mg Ondansetron HCl (Zofran) 4 mg IV Q8H PRN PRN Reason: Nausea And Vomiting Sodium Chloride (Sodium Chloride Flush Syringe 10 Ml) 10 ml IV BID SAMI Last Admin: 06/16/18 10:01 Dose: 10 ml Sodium Chloride (Sodium Chloride Flush Syringe 10 Ml) 10 ml IV PRN PRN PRN Reason: LINE FLUSH Sodium Chloride (Nacl 0.45% 1000 Ml) 100 ml IV DIRECT SAMI Review of Systems ROS unobtainable: due to mental status Exam - Vital Signs Vital signs: Vital Signs Temp Pulse Resp BP Pulse Ox 100.4 F H 78 16 151/77 100 06/14/18 12:40 06/14/18 12:40 06/14/18 12:40 06/14/18 12:40 06/14/18 12:40 - General Appearance General appearance: well-developed EENT: ATNC, mucous membranes dry Neck: Present: neck supple Respiratory: Clear to Ascultation Heart: regular, S1S2 Gastrointestinal: Present: normoactive bowel sounds. Absent: tenderness Integumentary: no rash, warm and dry Neurologic: other (does not follow commands) Musculoskeletal: Present: other (no edema in BLE) Psychiatric: other (does not answer questions) Results - Lab Results 06/16/18 06:18 06/16/18 06:18 Most recent lab results Calcium 10.0 mg/dL (8.4-10.2) 06/16/18 06:18 Assessment and Plan acute renal failure - likely prerenal azotemia, impriving with IVF, cont 1/2 NS @ 100 cc/h - will check urine lytes and protein - baseline Cr is unknown - strict I&O - daily weights - renally dose meds Metabolic encephalopathy - CT head was negative - mildly elevated lithium, will recheck tomorrow Sepsis Leukocytosis - on levaquin - blood culutres + coag - Hypernatremia - secondary o poor PO intake - cont 1/2 NS 100 cc/h will adjust as needed - will start water flushes when NGT is available HTN - will adjust med regimen as needed Thank you for allowing to participate in Mr Lobo's care Gregor padilla cell phone [phone]
[2018-06-16] MEDS ORDERED: NACL 0.45% 1000 ML IV SCH (16:00)
--- NOTE | 2018-06-16 16:13 | Progress Note ---
Assessment and Plan Assessment and plan: 83 YO Male presents to ED for evaluation of AMS by EMS. Pt was confused/ lethargic on admission and unable to provide history. per staff, EMS was notified by daughter, Upon arrival the patient was found down and unresponsive in the bathroom. Pt transported to [facility] for further care and evaluation. Pt was seen and evaluated in ED and found to have encephalopathy, and acute renal failure, as well as lithium toxicity. /Acute renal failure, vasomotor nephropathy, poa IVF resuscitation, monitor uop q shift, repeat bmp, If no improvement, will consult renal /Acute Encephalopathy CT head unremarkable, cont neuro checks, aspiration precautions, seizure precautions. /SIRS without infection found on admission, negative cxr and ua /[place] toxicity with hypernatremia, suspect for DI, defer to Nephrology [place] level in significantly less than 4. Urgent dialysis not indicated at this time. continue IVF resuscitation. / h/o schizophrenia consulted psych, hold home meds /Hypernatremia, d5 1/2NS / DVT prophylaxis SCD to BLE while in bed. History Interval history: Patient was seen and examined. Follow-up on current diagnosis. Overnight uneventful. Patient denies any chest pain, shortness breath, nausea/vomiting or severe headaches. Imaging, nursing note, chart, labs and old chart reviewed. Discussed with patient. Hospitalist Physical - Physical exam Narrative exam: GEN: WDWN, NAD, Awake, Alert, confused HEENT: NCAT, EOMI, PERRL, OP Clear NECK: supple, no adenopathy, no thyromegaly, no JVD CVS/HEART: RRR, normal S1S2, pulses present bilaterally CHEST/LUNGS: CTA B, Symmetrical chest expansion, good air entry bilaterally GI/Abdomen: soft, NTND, good bowel sounds, no guarding or rebound /Bladder: no suprapubic tenderness, no CVA or paraspinal tenderness EXT/Skin: no c/c/e, no obvious rash MSK: FROM x 4 Neuro: CN 2-12 grossly intact, doesn't follow commands Psych: aggressive and agitated - Constitutional Vitals: Temp Pulse Resp BP Pulse Ox 98.4 F 69 20 144/92 96 06/16/18 06:49 06/16/18 07:46 06/16/18 07:46 06/16/18 07:46 07/17/18 10:00 General appearance: Present: well-nourished, other (restraint) Results - Labs CBC & Chem 7: 06/16/18 06:18 06/16/18 06:18 Labs: Laboratory Last Values WBC 11.4 K/mm3 (4.5-11.0) H 06/16/18 06:18 RBC 5.05 M/mm3 (3.65-5.03) H 06/16/18 06:18 Hgb 15.1 gm/dl (11.8-15.2) 06/16/18 06:18 Hct 45.6 % (35.5-45.6) 06/16/18 06:18 MCV 90 fl (84-94) 06/16/18 06:18 MCH 30 pg (28-32) 06/16/18 06:18 MCHC 33 % (32-34) 06/16/18 06:18 RDW 15.6 % (13.2-15.2) H 06/16/18 06:18 Plt Count 171 K/mm3 (140-440) 06/16/18 06:18 Lymph % (Auto) 11.7 % (13.4-35.0) L 06/16/18 06:18 [place] % (Auto) 8.8 % (0.0-7.3) H 06/16/18 06:18 Eos % (Auto) 0.2 % (0.0-4.3) 06/16/18 06:18 Baso % (Auto) 0.2 % (0.0-1.8) 06/16/18 06:18 Lymph # 1.3 K/mm3 (1.2-5.4) 06/16/18 06:18 [place] # 1.0 K/mm3 (0.0-0.8) H 06/16/18 06:18 Eos # 0.0 K/mm3 (0.0-0.4) 06/16/18 06:18 Baso # 0.0 K/mm3 (0.0-0.1) 06/16/18 06:18 Seg Neutrophils % 79.1 % (40.0-70.0) H 06/16/18 06:18 Seg Neutrophils # 9.0 K/mm3 (1.8-7.7) H 06/16/18 06:18 Sodium 155 mmol/L (137-145) H 06/16/18 06:18 Potassium 3.4 mmol/L (3.6-5.0) L 06/16/18 06:18 Chloride 117.3 mmol/L (98-107) H 06/16/18 06:18 Carbon Dioxide 21 mmol/L (22-30) L 06/16/18 06:18 Anion Gap 20 mmol/L 06/16/18 06:18 BUN 42 mg/dL (9-20) H 06/16/18 06:18 Creatinine 1.8 mg/dL (0.8-1.5) H 06/16/18 06:18 Estimated GFR 36 ml/min 06/16/18 06:18 BUN/Creatinine Ratio 23 % 06/16/18 06:18 Glucose 128 mg/dL (75-100) H 06/16/18 06:18 POC Glucose 113 (70-105) H 06/15/18 22:24 Lactic Acid 1.20 mmol/L (0.7-2.0) 06/15/18 13:38 Calcium 10.0 mg/dL (8.4-10.2) 06/16/18 06:18 Total Bilirubin 0.80 mg/dL (0.1-1.2) 06/14/18 Unknown AST 51 units/L (5-40) H 06/14/18 Unknown ALT 24 units/L (7-56) 06/14/18 Unknown Alkaline Phosphatase 110 units/L (35-129) 06/14/18 Unknown Ammonia 40.0 umol/L (25-60) 06/14/18 14:05 Troponin T 0.036 ng/mL (0.00-0.029) H 06/14/18 Unknown Total Protein 8.3 g/dL (6.3-8.2) H 06/14/18 Unknown Albumin 5.0 g/dL (3.9-5) 06/14/18 Unknown Albumin/Globulin Ratio 1.5 % 06/14/18 Unknown Triglycerides 156 mg/dL (2-149) H 06/14/18 Unknown Cholesterol 73 mg/dL (50-199) 06/14/18 Unknown LDL Cholesterol Direct 17 mg/dL (50-130) L 06/14/18 Unknown HDL Cholesterol 33 mg/dL (40-59) L 06/14/18 Unknown Cholesterol/HDL Ratio 2.21 % 06/14/18 Unknown Urine Color Yellow (Yellow) 06/14/18 16:44 Urine Turbidity Clear (Clear) 06/14/18 16:44 Urine pH 5.0 (5.0-7.0) 06/14/18 16:44 Ur Specific [place] 1.020 (1.003-1.030) 06/14/18 16:44 Urine Protein 100 mg/dl mg/dL (Negative) 06/14/18 16:44 Urine Glucose (UA) 50 mg/dL (Negative) 06/14/18 16:44 Urine Ketones Tr mg/dL (Negative) 06/14/18 16:44 Urine Blood Lg (Negative) 06/14/18 16:44 Urine Nitrite Neg (Negative) 06/14/18 16:44 Urine Bilirubin Neg (Negative) 06/14/18 16:44 Urine Urobilinogen < 2.0 mg/dL (<2.0) 06/14/18 16:44 Ur Leukocyte Esterase Neg (Negative) 06/14/18 16:44 Urine WBC (Auto) 6.0 /HPF (0.0-6.0) 06/14/18 16:44 Urine RBC (Auto) 2.0 /HPF (0.0-6.0) 06/14/18 16:44 U Epithel Cells (Auto) < 1.0 /HPF (0-13.0) 06/14/18 16:44 Urine Bacteria (Auto) 1+ /HPF (Negative) 06/14/18 16:44 Urine WBC Clumps Few /HPF 06/14/18 16:44 Hyaline Casts 1 /LPF 06/14/18 16:44 Granular Casts 3 /LPF 06/14/18 16:44 Urine Mucus Few /HPF 06/14/18 16:44 Salicylates < 0.3 mg/dL (2.8-20.0) L 06/14/18 Unknown Urine Opiates Screen Presumptive negative 06/14/18 16:44 Urine Methadone Screen Presumptive negative 06/14/18 16:44 Acetaminophen < 5.0 ug/mL (10.0-30.0) L 06/14/18 Unknown Ur Barbiturates Screen Presumptive negative 06/14/18 16:44 Ur Phencyclidine Scrn Presumptive negative 06/14/18 16:44 Ur Amphetamines Screen Presumptive negative 06/14/18 16:44 U Benzodiazepines Scrn Presumptive negative 06/14/18 16:44 [place] 1.5 mmol/L (0.0-1.2) H 06/14/18 16:22 Urine Cocaine Screen Presumptive negative 06/14/18 16:44 U Marijuana (THC) Screen Presumptive negative 06/14/18 16:44 Drugs of Abuse Note Disclamer 06/14/18 16:44 Plasma/Serum Alcohol < 0.01 % (0-0.07) 06/14/18 Unknown
[2018-06-16] MEDS ORDERED: K-DUR PO ONE (18:00)
[2018-06-17] MEDS: ATIVAN IV PRN (04:09)
[2018-06-17 07:33] LABS: Basophils % (Auto) 0.3 % (0.0-1.8); Eosinophils # (Auto) 0.1 K/mm3 (0.0-0.4); Eosinophils % (Auto) 1.1 % (0.0-4.3); Hematocrit 46.4 % (35.5-45.6); Hemoglobin 15.4 gm/dl (11.8-15.2); Lymphocytes # (Auto) 1.4 K/mm3 (1.2-5.4); Lymphocytes % (Auto) 15.4 % (13.4-35.0); Mean Corpuscular HGB Conc 33 % (32-34); Mean Corpuscular Hemoglobin 30 pg (28-32); Mean Corpuscular Volume 91 fl (84-94); Monocytes # (Auto) 0.8 K/mm3 (0.0-0.8); Monocytes % (Auto) 8.5 % (0.0-7.3); Platelet Count 157 K/mm3 (140-440); Red Blood Count 5.13 M/mm3 (3.65-5.03); Red Cell Distribution Width 15.8 % (13.2-15.2)
[2018-06-17 08:00] LABS: Calcium 9.6 mg/dL (8.4-10.2)
[2018-06-17] MEDS: NORVASC PO SCH (10:00)
--- NOTE | 2018-06-17 10:37 | Progress Note ---
Assessment and Plan Acute Renal Failure secondary to Prerenal Azotemia: - Renal function reviewed. Serum creatinine 1.5 today, yesterday's serum creatinine 1.8 - On IV hydration with D5/0.45% NS @ 100 ml/hr - Baseline serum creatinine unknown - Urine lytes showed proteinuria - Will order SPEP, ARAM, ANCA, anti-GBM, Complements, HIV, Hepatitis panel - Avoid Nephrotoxic agents - Strict I&O monitoring- good UOP 1200 ml - Obtain daily weights - Renally dose medications - Continue to monitor renal function Metabolic encephalopathy - CT head was negative - Currently 0.9, normal Sepsis Leukocytosis - On IV Levaquin -As per primary team Hypernatremia - Secondary to poor oral intake - On D5/0.45% NS@ 100 ml/hr - Will start water flushes when NGT is available Hypertension - On Norvasc and prn Hydralazine - Adjust regimen as needed Subjective Date of service: 06/17/18 Principal diagnosis: ARF Interval history: Patient is very sleepy and is in restraints. Sister at bedside. Objective - Vital Signs Vital signs: Vital Signs - 12hr 06/17/18 06/17/18 00:16 08:12 Temperature 99.0 F 98.3 F Pulse Rate 60 60 Respiratory 16 18 Rate Blood Pressure 149/89 169/73 O2 Sat by Pulse 93 96 Oximetry - General Appearance General appearance: well-developed, other (Sleepy) EENT: ATNC Neck: no JVD, supple Respiratory: Present: Decreased Breath Sounds Cardiology: regular, S1S2 Gastrointestinal: normoactive bowel sounds Integumentary: no rash Neurologic: other (Sleepy) Musculoskeletal: other (No edema) - Lab 06/17/18 06:55 06/17/18 06:55 Most recent lab results Calcium 9.6 mg/dL (8.4-10.2) 06/17/18 06:55 Phosphorus 2.10 mg/dL (2.5-4.5) L 06/17/18 06:55
[2018-06-17] MEDS: SODIUM CHLORIDE FLUSH SYRINGE 10 ML IV SCH ×2 (12:33→22:00)
[2018-06-17] MEDS: D5/0.45NS 1,000 ML IV SCH (12:40)
[2018-06-17] MEDS: LEVAQUIN 250MG/50ML 250 MG/50 ML BAG IV SCH (12:41)
--- NOTE | 2018-06-17 13:38 | Consultation ---
History of Present Illness - Reason for Consult Consult date: 06/17/18 Reason for consult: Initial Psychiatric Evaluation - Chief Complaint Chief complaint: Patient is nonverbal. - History of Present Psychiatric Illness Patient is a 83 year old white male who presents to the emergency room with altered mental status. Per sister she called EMS to check the welfare of patient because she was unable to reach him via phone. Per sister patient has a PPHx of Schizophrenia. 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 Patient was found upstairs in the bathroom. Currently, patient is asleep. Per sister patient is nonverbal but able to follow commands. Currently, patient is in restraints. Per sister/staff patient has had episodes of agitation. As a result, he has received Ativan. He last received Ativan at 0400am. Per assigned RN patient has been resting. No agitation noted. He has not received any Ativan PRN on her shift, 7a-7pm. Medications and Allergies Allergies Allergy/AdvReac Type Severity Reaction Status Date / Time Penicillins Allergy Unknown Verified 06/15/18 02:53 Home Medications Medication Instructions Recorded Confirmed Last Taken Type Unobtainable 06/14/18 06/14/18 Unknown History Active Meds: Active Medications Acetaminophen (Tylenol) 650 mg PO Q4H PRN PRN Reason: Pain MILD(1-3)/Fever >100.5/[place] Acetaminophen (Tylenol) 650 mg [place] Q4H PRN PRN Reason: Pain, Mild (1-3) Last Admin: 06/15/18 05:08 Dose: 650 mg Albuterol (Proventil) 2.5 mg IH Q4HRT PRN PRN Reason: Shortness Of Breath Amlodipine Besylate (Norvasc) 10 mg PO QDAY [facility] Last Admin: 06/17/18 10:00 Dose: Not Given Hydralazine HCl (Apresoline) 20 mg IV Q6H PRN PRN Reason: Hypertension Last Admin: 06/16/18 05:58 Dose: 20 mg Levofloxacin/Dextrose (Levaquin 250mg/50ml) 250 mg in 50 mls @ 50 mls/hr IV Q24H [facility] Last Admin: 06/17/18 12:41 Dose: 50 mls/hr Dextrose/Sodium Chloride (D5/0.45ns) 1,000 mls @ 100 mls/hr IV DIRECT [facility] Last Admin: 06/17/18 12:40 Dose: 100 mls/hr Lorazepam (Ativan) 1 mg IV Q6H PRN PRN Reason: Agitation Last Admin: 06/17/18 04:09 Dose: 1 mg Ondansetron HCl (Zofran) 4 mg IV Q8H PRN PRN Reason: Nausea And Vomiting Sodium Chloride (Sodium Chloride Flush Syringe 10 Ml) 10 ml IV BID [facility] Last Admin: 06/17/18 12:33 Dose: 10 ml Sodium Chloride (Sodium Chloride Flush Syringe 10 Ml) 10 ml IV PRN PRN PRN Reason: LINE FLUSH Sodium Chloride (Nacl 0.45% 1000 Ml) 100 ml IV DIRECT [facility] Mental Status Exam - Vital signs Last Vital Signs Temp 98.3 F 06/17/18 08:12 Pulse 60 06/17/18 08:12 Resp 18 06/17/18 08:12 BP 169/73 06/17/18 08:12 Pulse Ox 96 06/17/18 08:12 - Exam Narrative exam: Unable to obtain mental status exam due to patient's condition. Results Result Diagrams: 06/18/18 06:28 06/18/18 06:28 Abnormal lab results 06/17/18 06/17/18 Range/Units 06:55 06:55 RBC 5.13 H (3.65-5.03) M/mm3 Hgb 15.4 H (11.8-15.2) gm/dl Hct 46.4 H (35.5-45.6) % RDW 15.8 H (13.2-15.2) % [place] % (Auto) 8.5 H (0.0-7.3) % Seg Neutrophils % 74.7 H (40.0-70.0) % Sodium 154 H (137-145) mmol/L Chloride 116.2 H (98-107) mmol/L BUN 31 H (9-20) mg/dL Glucose 120 H (75-100) mg/dL Phosphorus 2.10 L (2.5-4.5) mg/dL All other labs normal. Assessment and Plan Assessment and plan: Impression: Hx of Schizophrenia . Currently, patient is able to follow commands , however patient is nonverbal. Agitation has been noted. Patient is receiving PRN Ativan. No suicidal gestures noted. Recommendation/Plan: 1. Will reassess in 24 hours. 2. Gain collateral to determine proper disposition. Sister Breana Richard [phone]. 3. Psychiatry will not start psychiatric mediations. Benefits must outweigh risks. 4. Continue Ativan PRN as prescribed. 5. Will continue to monitor mood, sleep, appetite, agitation, compliance, and side effects. Recommend Delirium Precautions below: 1. Frequently reorient patient and involve him/her in their care (simple explanations of procedures, tests, medications). 2. Lights on and shades open during daytime hours. 3. Write date and goals of care in a visible place. 4. Try to avoid unnecessary interruptions to sleep during nighttime hours. 5. Obtain glasses, hearing aids from home if patient uses these at baseline. 6. Avoid medications that may exacerbate delirium (especially narcotics, benzodiazepines, barbiturates, ambien, lunesta, and medications with excessive anticholinergic properties). Consider Tylenol for pain, the patient has Morphine and Percocet ordered. 7. Recommend Haldol 2 mg Q6hrs PRN PO/IM for acute agitation. 8. D/C restraints when not indicated.
--- NOTE | 2018-06-17 17:57 | Consultation ---
History of Present Illness Consult date: 06/17/18 Requesting physician: BRYON NGUYEN Reason for Consult: Encephalopathy History of present illness: 83 year old male with history of schizophrenia, on [place], lives alone. Sisters periodically call him to check on him. He has been totally independent , taking care of all ADLs, chores, driving, participates in AA, manages own affairs. One sister tried to call him on . 06/11, and did not get a response. She tried several more times with no success, therefore called EMS to go to the house and investigate on 06/14. He was found on the bathroom floor lethargic and not responding. On admission here temp. was 100.4, creatinine 1.9 , Na 153. The patient continued unresponsive but agitated. [place] level was also elevated, and is now down to 0.9. Per sister, the patient seems to be interacting more with less agitation. Past History Past Medical History: other (obesity) Past Surgical History: No surgical history, Other (unobtainable) Social history: no significant social history, other (unobtainable) Family history: no significant family history (unobtainable.), hypertension, stroke Medications and Allergies Allergies Allergy/AdvReac Type Severity Reaction Status Date / Time Penicillins Allergy Unknown Verified 06/15/18 02:53 Home Medications Medication Instructions Recorded Confirmed Last Taken Type Unobtainable 06/14/18 06/14/18 Unknown History Active Meds: Active Medications Acetaminophen (Tylenol) 650 mg PO Q4H PRN PRN Reason: Pain MILD(1-3)/Fever >100.5/[place] Acetaminophen (Tylenol) 650 mg [place] Q4H PRN PRN Reason: Pain, Mild (1-3) Last Admin: 06/15/18 05:08 Dose: 650 mg Albuterol (Proventil) 2.5 mg IH Q4HRT PRN PRN Reason: Shortness Of Breath Amlodipine Besylate (Norvasc) 10 mg PO QDAY [facility] Last Admin: 06/17/18 10:00 Dose: Not Given Hydralazine HCl (Apresoline) 20 mg IV Q6H PRN PRN Reason: Hypertension Last Admin: 06/16/18 05:58 Dose: 20 mg Levofloxacin/Dextrose (Levaquin 250mg/50ml) 250 mg in 50 mls @ 50 mls/hr IV Q24H [facility] Last Admin: 06/17/18 12:41 Dose: 50 mls/hr Dextrose/Sodium Chloride (D5/0.45ns) 1,000 mls @ 100 mls/hr IV DIRECT [facility] Last Admin: 06/17/18 12:40 Dose: 100 mls/hr Lorazepam (Ativan) 1 mg IV Q6H PRN PRN Reason: Agitation Last Admin: 06/17/18 04:09 Dose: 1 mg Ondansetron HCl (Zofran) 4 mg IV Q8H PRN PRN Reason: Nausea And Vomiting Sodium Chloride (Sodium Chloride Flush Syringe 10 Ml) 10 ml IV BID [facility] Last Admin: 06/17/18 12:33 Dose: 10 ml Sodium Chloride (Sodium Chloride Flush Syringe 10 Ml) 10 ml IV PRN PRN PRN Reason: LINE FLUSH Sodium Chloride (Nacl 0.45% 1000 Ml) 100 ml IV DIRECT [facility] Review of Systems ROS unobtainable: due to mental status Physical Examination - Vital Signs Vital Signs: Vital Signs Temp Pulse Resp BP Pulse Ox 100.4 F H 78 16 151/77 100 06/14/18 12:40 06/14/18 12:40 06/14/18 12:40 06/14/18 12:40 06/14/18 12:40 Pt. is restless but opens his eyes and fixes on the examiner. Intermittently he follows simple commands, and will respond with a "yes". 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 Face is symmetric, tongue midline. Motor - Moves all 4 extremities equally well. In restraints. Sensory intact to pin. Cerebellar - occasional tremor noted. - Assessment Assessment Interval: Baseline - Level of Consciousness 1a. Level of Consciousness: alert - LOC Questions 1b. LOC Questions: answers 1 question correctly - LOC Command 1c. LOC Commands: performs tasks correctly - Best Gaze 2. Best Gaze: normal - Visual 3. Visual: no visual loss - Facial Palsy 4. Facial Palsy: normal symmetrical movement - Motor Arm 5b. Motor Arm Right: no drift - Motor Leg 6a. Motor Leg Left: no drift - Limb Ataxia 7. Limb Ataxia: absent - Sensory 8. Sensory: normal - Best Language 9. Best Language: no aphasia - Dysarthria 10. Dysarthria: normal - Extinction and Inattention 11. Extinction/Inattention: no abnormality Results - Laboratory Findings CBC and BMP: 06/17/18 06:55 06/17/18 06:55 Abnormal Lab Findings: Abnormal Labs 06/14/18 06/14/18 06/14/18 13:50 16:22 16:22 WBC 15.9 H RBC 5.04 H Hgb Hct RDW Lymph % (Auto) 8.0 L [place] % (Auto) 8.9 H [place] # 1.4 H Seg Neutrophils % 82.9 H Seg Neutrophils # 13.2 H Sodium Potassium Chloride Carbon Dioxide BUN Creatinine Glucose POC Glucose 149 H Lactic Acid 2.90 H* Calcium Phosphorus AST Troponin T Total Protein Triglycerides LDL Cholesterol Direct HDL Cholesterol Salicylates Acetaminophen [place] 06/14/18 06/14/18 06/14/18 16:22 Unknown Unknown WBC RBC Hgb Hct RDW Lymph % (Auto) [place] % (Auto) [place] # Seg Neutrophils % Seg Neutrophils # Sodium 146 H Potassium Chloride Carbon Dioxide BUN 60 H Creatinine 2.9 H Glucose 170 H POC Glucose Lactic Acid 3.40 H* Calcium 11.2 H Phosphorus AST 51 H Troponin T 0.036 H Total Protein 8.3 H Triglycerides 156 H LDL Cholesterol Direct 17 L HDL Cholesterol 33 L Salicylates Acetaminophen [place] 1.5 H 06/14/18 06/14/18 06/15/18 Unknown Unknown 13:38 WBC 14.3 H RBC Hgb Hct RDW 15.7 H Lymph % (Auto) [place] % (Auto) [place] # Seg Neutrophils % Seg Neutrophils # Sodium Potassium Chloride Carbon Dioxide BUN Creatinine Glucose POC Glucose Lactic Acid Calcium Phosphorus AST Troponin T Total Protein Triglycerides LDL Cholesterol Direct HDL Cholesterol Salicylates < 0.3 L Acetaminophen < 5.0 L [place] 06/15/18 06/15/18 06/16/18 13:38 22:24 06:18 WBC 11.4 H RBC 5.05 H Hgb Hct RDW 15.6 H Lymph % (Auto) 11.7 L [place] % (Auto) 8.8 H [place] # 1.0 H Seg Neutrophils % 79.1 H Seg Neutrophils # 9.0 H Sodium 153 H Potassium Chloride 116.3 H Carbon Dioxide 21 L BUN 46 H Creatinine 1.9 H Glucose 124 H POC Glucose 113 H Lactic Acid Calcium Phosphorus AST Troponin T Total Protein Triglycerides LDL Cholesterol Direct HDL Cholesterol Salicylates Acetaminophen [place] 06/16/18 06/17/18 06/17/18 06:18 06:55 06:55 WBC RBC 5.13 H Hgb 15.4 H Hct 46.4 H RDW 15.8 H Lymph % (Auto) [place] % (Auto) 8.5 H [place] # Seg Neutrophils % 74.7 H Seg Neutrophils # Sodium 155 H 154 H Potassium 3.4 L Chloride 117.3 H 116.2 H Carbon Dioxide 21 L BUN 42 H 31 H Creatinine 1.8 H Glucose 128 H 120 H POC Glucose Lactic Acid Calcium Phosphorus 2.10 L AST Troponin T Total Protein Triglycerides LDL Cholesterol Direct HDL Cholesterol Salicylates Acetaminophen [place] Assessment and Plan 83 year old male with history of schizophrenia, on [place], found down on 06/14 for unknown length of time. He had been very agitated, requiring Ativan for sedation. He is now off Ativan since 4 AM. With IV. fluids and improvement in renal function, witholding [place], he seems to be recovering. This may be a severe dehydration in an 83 year old male with the other factors mentioned above. Exam is nonfocal, but an MRI scan would be helpful, as would an EEG. These might require sedation, therefore maybe watch another 24 hours to evaluate. Plan - will check ammonia level, and TFTs
--- NOTE | 2018-06-17 18:04 | Progress Note ---
Assessment and Plan Assessment and plan: 83 YO Male presents to ED for evaluation of AMS by EMS. Pt was confused/ lethargic on admission and unable to provide history. per staff, EMS was notified by daughter, Upon arrival the patient was found down and unresponsive in the bathroom. Pt transported to [facility] for further care and evaluation. Pt was seen and evaluated in ED and found to have encephalopathy, and acute renal failure, as well as lithium toxicity. /Acute renal failure, vasomotor nephropathy, poa IVF resuscitation, monitor uop q shift, repeat bmp, If no improvement, will consult renal /Acute Encephalopathy CT head unremarkable, cont neuro checks, aspiration precautions, seizure precautions. /SIRS without infection found on admission, negative cxr and ua /[place] toxicity with hypernatremia, suspect for DI, defer to Nephrology [place] level in significantly less than 4. Urgent dialysis not indicated at this time. continue IVF resuscitation. / h/o schizophrenia consulted psych, hold home meds /Hypernatremia, d5 1/2NS / DVT prophylaxis SCD to BLE while in bed. Consulted Neurology because no clear answer to the etiology of this undifferented encephalopathy/AMS. D/W sister Deonna at bedside. It appears pt has a history of schizophrenia and prior etoh abuse. He doesn't drink alcohol now and has dedicated his life to helping other fight alcohol addiction. We still have no clear etiology for the encephalopathy, pt is orientated x 0 but today he is responding to voice and follows some commands now. The renal failure is resolved, Cr down to 1.5 from 2.9 Patient lives alone. Sisters periodically call him to check on him. He has been totally independent, taking care of all ADLs, chores, driving, participates in AA, manages own affairs. Deonna went out of town but called him on and and did not get a response. She tried several more times with no success, therefore called EMS to go to the house and investigate. He was found on the bathroom floor lethargic and not responding. History Interval history: Patient was seen and examined. Follow-up on current diagnosis of AMS which is still present. Overnight uneventful. Still in restaints. Imaging, nursing note, chart, labs and old chart reviewed. Discussed with sister Deonna Richard at bedside. Hospitalist Physical - Physical exam Narrative exam: GEN: WDWN, NAD, Awake, Alert, confused HEENT: NCAT, EOMI, PERRL, OP Clear NECK: supple, no adenopathy, no thyromegaly, no JVD CVS/HEART: RRR, normal S1S2, pulses present bilaterally CHEST/LUNGS: CTA B, Symmetrical chest expansion, good air entry bilaterally GI/Abdomen: soft, NTND, good bowel sounds, no guarding or rebound /Bladder: no suprapubic tenderness, no CVA or paraspinal tenderness EXT/Skin: no c/c/e, no obvious rash MSK: FROM x 4 Neuro: CN 2-12 grossly intact, doesn't follow commands Psych: aggressive and agitated - Constitutional Vitals: Temp Pulse Resp BP Pulse Ox 98.2 F 60 8 L 164/77 92 06/17/18 15:48 06/17/18 15:48 06/17/18 15:48 06/17/18 15:48 06/17/18 15:48 General appearance: Present: well-nourished, other (restraint) Results - Labs CBC & Chem 7: 06/17/18 06:55 06/17/18 06:55 Labs: Laboratory Last Values WBC 8.9 K/mm3 (4.5-11.0) 06/17/18 06:55 RBC 5.13 M/mm3 (3.65-5.03) H 06/17/18 06:55 Hgb 15.4 gm/dl (11.8-15.2) H 06/17/18 06:55 Hct 46.4 % (35.5-45.6) H 06/17/18 06:55 MCV 91 fl (84-94) 06/17/18 06:55 MCH 30 pg (28-32) 06/17/18 06:55 MCHC 33 % (32-34) 06/17/18 06:55 RDW 15.8 % (13.2-15.2) H 06/17/18 06:55 Plt Count 157 K/mm3 (140-440) 06/17/18 06:55 Lymph % (Auto) 15.4 % (13.4-35.0) 06/17/18 06:55 [place] % (Auto) 8.5 % (0.0-7.3) H 06/17/18 06:55 Eos % (Auto) 1.1 % (0.0-4.3) 06/17/18 06:55 Baso % (Auto) 0.3 % (0.0-1.8) 06/17/18 06:55 Lymph # 1.4 K/mm3 (1.2-5.4) 06/17/18 06:55 [place] # 0.8 K/mm3 (0.0-0.8) 06/17/18 06:55 Eos # 0.1 K/mm3 (0.0-0.4) 06/17/18 06:55 Baso # 0.0 K/mm3 (0.0-0.1) 06/17/18 06:55 Seg Neutrophils % 74.7 % (40.0-70.0) H 06/17/18 06:55 Seg Neutrophils # 6.6 K/mm3 (1.8-7.7) 06/17/18 06:55 Sodium 154 mmol/L (137-145) H 06/17/18 06:55 Potassium 3.7 mmol/L (3.6-5.0) 06/17/18 06:55 Chloride 116.2 mmol/L (98-107) H 06/17/18 06:55 Carbon Dioxide 25 mmol/L (22-30) 06/17/18 06:55 Anion Gap 17 mmol/L 06/17/18 06:55 BUN 31 mg/dL (9-20) H 06/17/18 06:55 Creatinine 1.5 mg/dL (0.8-1.5) 06/17/18 06:55 Estimated GFR 45 ml/min 06/17/18 06:55 BUN/Creatinine Ratio 21 % 06/17/18 06:55 Glucose 120 mg/dL (75-100) H 06/17/18 06:55 POC Glucose 113 (70-105) H 06/15/18 22:24 Lactic Acid 1.20 mmol/L (0.7-2.0) 06/15/18 13:38 Calcium 9.6 mg/dL (8.4-10.2) 06/17/18 06:55 Phosphorus 2.10 mg/dL (2.5-4.5) L 06/17/18 06:55 Total Bilirubin 0.80 mg/dL (0.1-1.2) 06/14/18 Unknown AST 51 units/L (5-40) H 06/14/18 Unknown ALT 24 units/L (7-56) 06/14/18 Unknown Alkaline Phosphatase 110 units/L (35-129) 06/14/18 Unknown Ammonia 40.0 umol/L (25-60) 06/14/18 14:05 Troponin T 0.036 ng/mL (0.00-0.029) H 06/14/18 Unknown Total Protein 8.3 g/dL (6.3-8.2) H 06/14/18 Unknown Albumin 5.0 g/dL (3.9-5) 06/14/18 Unknown Albumin/Globulin Ratio 1.5 % 06/14/18 Unknown Triglycerides 156 mg/dL (2-149) H 06/14/18 Unknown Cholesterol 73 mg/dL (50-199) 06/14/18 Unknown LDL Cholesterol Direct 17 mg/dL (50-130) L 06/14/18 Unknown HDL Cholesterol 33 mg/dL (40-59) L 06/14/18 Unknown Cholesterol/HDL Ratio 2.21 % 06/14/18 Unknown Urine Color Yellow (Yellow) 06/14/18 16:44 Urine Turbidity Clear (Clear) 06/14/18 16:44 Urine pH 5.0 (5.0-7.0) 06/14/18 16:44 Ur Specific [place] 1.020 (1.003-1.030) 06/14/18 16:44 Urine Protein 100 mg/dl mg/dL (Negative) 06/14/18 16:44 Urine Glucose (UA) 50 mg/dL (Negative) 06/14/18 16:44 Urine Ketones Tr mg/dL (Negative) 06/14/18 16:44 Urine Blood Lg (Negative) 06/14/18 16:44 Urine Nitrite Neg (Negative) 06/14/18 16:44 Urine Bilirubin Neg (Negative) 06/14/18 16:44 Urine Urobilinogen < 2.0 mg/dL (<2.0) 06/14/18 16:44 Ur Leukocyte Esterase Neg (Negative) 06/14/18 16:44 Urine WBC (Auto) 6.0 /HPF (0.0-6.0) 06/14/18 16:44 Urine RBC (Auto) 2.0 /HPF (0.0-6.0) 06/14/18 16:44 U Epithel Cells (Auto) < 1.0 /HPF (0-13.0) 06/14/18 16:44 Urine Bacteria (Auto) 1+ /HPF (Negative) 06/14/18 16:44 Urine WBC Clumps Few /HPF 06/14/18 16:44 Hyaline Casts 1 /LPF 06/14/18 16:44 Granular Casts 3 /LPF 06/14/18 16:44 Urine Mucus Few /HPF 06/14/18 16:44 Salicylates < 0.3 mg/dL (2.8-20.0) L 06/14/18 Unknown Urine Opiates Screen Presumptive negative 06/14/18 16:44 Urine Methadone Screen Presumptive negative 06/14/18 16:44 Acetaminophen < 5.0 ug/mL (10.0-30.0) L 06/14/18 Unknown Ur Barbiturates Screen Presumptive negative 06/14/18 16:44 Ur Phencyclidine Scrn Presumptive negative 06/14/18 16:44 Ur Amphetamines Screen Presumptive negative 06/14/18 16:44 U Benzodiazepines Scrn Presumptive negative 06/14/18 16:44 [place] 0.9 mmol/L (0.0-1.2) 06/17/18 06:55 Urine Cocaine Screen Presumptive negative 06/14/18 16:44 U Marijuana (THC) Screen Presumptive negative 06/14/18 16:44 Drugs of Abuse Note Disclamer 06/14/18 16:44 Plasma/Serum Alcohol < 0.01 % (0-0.07) 06/14/18 Unknown Hep Bs Antigen Non-reactive (Negative) 06/17/18 11:56 Hepatitis C Antibody Non-reactive (NonReactive) 06/17/18 11:56 HIV 1&2 Antibody Rapid Non react (Non React) 06/17/18 11:56 HIV P24 Antigen Non react (Non React) 06/17/18 11:56
[2018-06-17 19:19] LABS: Free T4 (Free Thyroxine) 1.14 ng/dL (0.76-1.46)
[2018-06-17] MEDS: APRESOLINE IV PRN (20:43)
[2018-06-18] MEDS: ATIVAN IV PRN (00:16)
[2018-06-18 06:58] LABS: Basophils % (Auto) 0.2 % (0.0-1.8); Eosinophils # (Auto) 0.1 K/mm3 (0.0-0.4); Eosinophils % (Auto) 1.6 % (0.0-4.3); Hematocrit 47.1 % (35.5-45.6); Hemoglobin 15.2 gm/dl (11.8-15.2); Lymphocytes # (Auto) 1.1 K/mm3 (1.2-5.4); Lymphocytes % (Auto) 14.3 % (13.4-35.0); Mean Corpuscular HGB Conc 32 % (32-34); Mean Corpuscular Hemoglobin 30 pg (28-32); Mean Corpuscular Volume 92 fl (84-94); Monocytes # (Auto) 0.7 K/mm3 (0.0-0.8); Platelet Count 150 K/mm3 (140-440); Red Blood Count 5.12 M/mm3 (3.65-5.03); Red Cell Distribution Width 15.7 % (13.2-15.2)
[2018-06-18 07:22] LABS: Calcium 9.2 mg/dL (8.4-10.2)
--- NOTE | 2018-06-18 10:59 | Progress Note ---
Assessment and Plan Acute Renal Failure secondary to prerenal azotemia: - Renal function reviewed, SCr level was 1.4 today, yesterday's SCr level was 1.5 - Exact SCr baseline unknown - D/C D5 0.45% NS infusion at 100 ml/hr - Switch to D5W infusion at 100 ml/hr - HCV, HBV, HIV negative - SPEP, ARAM, ANCA, anti-GBM, complements levels pending - Avoid Nephrotoxic agents - Obtain daily weights - Renally dose medications - Intake= 2350 ml Output= 1200 ml ( Net= 1150 ml) - Renal plan d/w Dr Villareal - Continue supportive therapy Acute Encephalopathy - CT Head showed no acute intracranial findings, left mastoid sinus disease - [place] level was 0.9 on 06/17/18 - Neurology and Psych on board Sepsis: Leukocytosis: - On levaquin - As per primary team Hypernatremia - Secondary to poor oral intake/npo - Serum sodium level worsened to 156 today, yesterday's serum sodium level was 154 - D/C D5 0.45% NS infusion at 100 ml/hr - Start on D5W infusion at 100 ml/hr for worsening hypernatremia - Repeat serum sodium level at 1800 today - No NGT at this time - Unable to start free water flushes and currently NPO. Would recommend NGT/Dobhoff tube placement for free water flushes if ok with primary/neurology/psych team - Check urine lytes and osmolality studies Hypertension - On Hydralazine 20 mg IV every 6 hrs PRN, currently NPO - Adjust regimen as needed Subjective Date of service: 06/18/18 Principal diagnosis: ARF Interval history: Pt in bed in restraints, doesn't follow commands, no family at bedside Objective - Vital Signs Vital signs: Vital Signs - 12hr 06/18/18 06/18/18 06/18/18 00:27 00:33 07:35 Temperature 99 F 98.6 F Pulse Rate 68 60 60 Respiratory 18 18 18 Rate Blood Pressure 167/75 Blood Pressure 192/66 155/64 [Left] O2 Sat by Pulse 94 98 95 Oximetry 06/18/18 06/18/18 08:00 10:35 Temperature 97.7 F Pulse Rate 60 Respiratory Rate Blood Pressure Blood Pressure [Left] O2 Sat by Pulse Oximetry - General Appearance General appearance: other (pt lethargic, doensn't follow commands) EENT: ATNC Neck: no JVD Respiratory: Present: Decreased Breath Sounds Cardiology: regular, S1S2 Gastrointestinal: normoactive bowel sounds Integumentary: warm and dry Neurologic: other (lethargic, doesn't follow commands) Musculoskeletal: other (no edema to both lower extremities) Psychiatric: other (unable to assess- restraints in place) - Lab 06/18/18 06:28 06/18/18 06:28 Most recent lab results Calcium 9.2 mg/dL (8.4-10.2) 06/18/18 06:28 Phosphorus 2.60 mg/dL (2.5-4.5) D 06/18/18 06:28
--- NOTE | 2018-06-18 12:28 | Progress Note ---
Subjective - Reason for Consult Consult date: 06/18/18 Reason for consult: Psychiatry Follow-up - Chief Complaint Chief complaint: "AMS" 83 year old white male who presents to the emergency room with altered mental status. Today the patient is calm, but confused during the assessment. He could not answer questions logically. Per his assigned nurse, the patient was agitated earlier in the shift. No gestures of SI/HI's. Mental Status Exam - Vital signs Last Vital Signs Temp 97.7 F 06/18/18 08:00 Pulse 60 06/18/18 10:35 Resp 18 06/18/18 07:35 BP 167/75 06/18/18 07:35 Pulse Ox 95 06/18/18 07:35 - Exam Narrative exam: The MSE could not be completed because of the patient's condition. Assessment and Plan Impression: Hx of Schizophrenia per the record. Today the patient is calm, but confused during the assessment. He cannot follow commands at this time. [place] level 1.5 on admission. NA 156. The patient is in restraints. Medical: Acute Encephalopathy Recommendation/Plan: Gather collateral information to help determine proper treatment and dispo. Hold psy medications at this time. Recommend Delirium Precautions below: 1. Frequently reorient patient and involve him/her in their care (simple explanations of procedures, tests, medications). 2. Lights on and shades open during daytime hours. 3. Write date and goals of care in a visible place. 4. Try to avoid unnecessary interruptions to sleep during nighttime hours. 5. Obtain glasses, hearing aids from home if patient uses these at baseline. 6. Avoid medications that may exacerbate delirium (especially narcotics, benzodiazepines, barbiturates, ambien, lunesta, and medications with excessive anticholinergic properties). 7. Recommend Haldol 2 mg Q6hrs PRN PO/IM for acute agitation. 8. D/C restraints when not indicated.
--- NOTE | 2018-06-18 13:01 | Progress Note ---
Assessment and Plan 83 year old male found down on 06/14/18. Currently encephalopathic. Presented with dehydration, hypernatremia, elevated lithium level, renal compromise. He seems to slowly be improving with less agitation and more alert times. Sodium is still elevated. Other lab abnormalities are improving. Major question is "Why did he fall?" and why is his current speech so dysarthric ? It will be important to obtain an MRI of the brain to help rule out ischemic disease as the etiology. Plan - Continue to observe off Ativan as much as possible. Agree with dobhoff placement for nutrition purposes also. Subjective Date of service: 06/18/18 Principal diagnosis: ARF, encephalopathy Interval history: 83 year old male presented to ER 06/14, having been found down for an unknown length of time. He was lethargic and unable to communicate. He has been agitated and not responding verbally over the past few days. Agitation is gradually resolving. Objective - Exam Narrative Exam: Resting comfortably. Awakened to voice. Said "Hi". Responded appropriately to several easy questions. Speech is very dysarthric. Followed some simple commands. 3rd mate - EOMs full Face symmetric, tongue midline. Motor - seems symmetric. 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 Cannot participate in formal testing. Sensory - grossly intact. - Vital Sign Vital Signs - 12hr 06/18/18 06/18/18 06/18/18 07:35 08:00 10:35 Temperature 97.7 F Pulse Rate 60 60 Respiratory 18 Rate Blood Pressure 167/75 O2 Sat by Pulse 95 Oximetry - Laboratory Findings CBC and BMP: 06/18/18 06:28 06/18/18 06:28 Abnormal Lab Findings: Abnormal Labs 06/14/18 06/14/18 06/14/18 13:50 16:22 16:22 WBC 15.9 H RBC 5.04 H Hgb Hct RDW Lymph % (Auto) 8.0 L [place] % (Auto) 8.9 H Lymph # [place] # 1.4 H Seg Neutrophils % 82.9 H Seg Neutrophils # 13.2 H Sodium Potassium Chloride Carbon Dioxide BUN Creatinine Glucose POC Glucose 149 H Lactic Acid 2.90 H* Calcium Phosphorus AST Troponin T Total Protein Triglycerides LDL Cholesterol Direct HDL Cholesterol Salicylates Acetaminophen [place] 06/14/18 06/14/18 06/14/18 16:22 Unknown Unknown WBC RBC Hgb Hct RDW Lymph % (Auto) [place] % (Auto) Lymph # [place] # Seg Neutrophils % Seg Neutrophils # Sodium 146 H Potassium Chloride Carbon Dioxide BUN 60 H Creatinine 2.9 H Glucose 170 H POC Glucose Lactic Acid 3.40 H* Calcium 11.2 H Phosphorus AST 51 H Troponin T 0.036 H Total Protein 8.3 H Triglycerides 156 H LDL Cholesterol Direct 17 L HDL Cholesterol 33 L Salicylates Acetaminophen [place] 1.5 H 06/14/18 06/14/18 06/15/18 Unknown Unknown 13:38 WBC 14.3 H RBC Hgb Hct RDW 15.7 H Lymph % (Auto) [place] % (Auto) Lymph # [place] # Seg Neutrophils % Seg Neutrophils # Sodium Potassium Chloride Carbon Dioxide BUN Creatinine Glucose POC Glucose Lactic Acid Calcium Phosphorus AST Troponin T Total Protein Triglycerides LDL Cholesterol Direct HDL Cholesterol Salicylates < 0.3 L Acetaminophen < 5.0 L [place] 06/15/18 06/15/18 06/16/18 13:38 22:24 06:18 WBC 11.4 H RBC 5.05 H Hgb Hct RDW 15.6 H Lymph % (Auto) 11.7 L [place] % (Auto) 8.8 H Lymph # [place] # 1.0 H Seg Neutrophils % 79.1 H Seg Neutrophils # 9.0 H Sodium 153 H Potassium Chloride 116.3 H Carbon Dioxide 21 L BUN 46 H Creatinine 1.9 H Glucose 124 H POC Glucose 113 H Lactic Acid Calcium Phosphorus AST Troponin T Total Protein Triglycerides LDL Cholesterol Direct HDL Cholesterol Salicylates Acetaminophen [place] 06/16/18 06/17/18 06/17/18 06:18 06:55 06:55 WBC RBC 5.13 H Hgb 15.4 H Hct 46.4 H RDW 15.8 H Lymph % (Auto) [place] % (Auto) 8.5 H Lymph # [place] # Seg Neutrophils % 74.7 H Seg Neutrophils # Sodium 155 H 154 H Potassium 3.4 L [place] 117.3 H 116.2 H Carbon Dioxide 21 L BUN 42 H 31 H Creatinine 1.8 H Glucose 128 H 120 H POC Glucose Lactic Acid Calcium Phosphorus 2.10 L AST Troponin T Total Protein Triglycerides LDL Cholesterol Direct HDL Cholesterol Salicylates Acetaminophen [place] 06/18/18 06/18/18 06:28 06:28 WBC RBC 5.12 H Hgb Hct 47.1 H RDW 15.7 H Lymph % (Auto) [place] % (Auto) 9.0 H Lymph # 1.1 L [place] # Seg Neutrophils % 74.9 H Seg Neutrophils # Sodium 156 H Potassium Chloride 118.4 H Carbon Dioxide BUN 29 H Creatinine Glucose 132 H POC Glucose Lactic Acid Calcium Phosphorus AST Troponin T Total Protein Triglycerides LDL Cholesterol Direct HDL Cholesterol Salicylates Acetaminophen [place]
[2018-06-18] MEDS: NORVASC PO SCH (13:22)
[2018-06-18] MEDS: SODIUM CHLORIDE FLUSH SYRINGE 10 ML IV SCH ×2 (13:23→23:10)
[2018-06-18] MEDS: D5W 1,000 ML IV SCH (13:24)
[2018-06-18] MEDS: LEVAQUIN 250MG/50ML 250 MG/50 ML BAG IV SCH (17:49)
--- NOTE | 2018-06-18 18:36 | Progress Note ---
Assessment and Plan Assessment and plan: Mr. Lobo is 83 yo man with a history of schizophrenia and prior etoh abuse who presented to ED for evaluation of AMS by EMS. D/W sister Deonna. 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 According to Deonna: He lives alone, totally independent, taking care of all ADLs, chores, driving, participates in AA, manages own affairs. Deonna went out of town but called him on and he did not answer. She tried several more times with no success; therefore, she called EMS to go to the house for a well-check. He was found on the bathroom floor lethargic and not responding. We really don't know how long he was on the floor or Why he fell? Pt was found to have undifferentiated encephalopathy, acute renal failure and mild lithium toxicity. /Acute renal failure, vasomotor nephropathy, poa IVF resuscitation, monitor uop q shift, repeat bmp, If no improvement, will consult renal /Acute Encephalopathy CT head unremarkable, cont neuro checks, aspiration precautions, seizure precautions. /SIRS without infection found on admission, negative cxr and ua /[place] toxicity with hypernatremia, suspect for DI, defer to Nephrology [place] level in significantly less than 4. Urgent dialysis not indicated at this time. continue IVF resuscitation. / h/o schizophrenia consulted psych, hold home meds /Hypernatremia, d5 1/2NS / DVT prophylaxis SCD to BLE while in bed. Consulted Neurology because no clear answer to the etiology of this undifferented encephalopathy/AMS. Need MRI and EEG but he will not cooperate for MRI and neurology really doesn't want anymore IV Ativan. Sister made mention that BZD may have caused agitation in the past. History Interval history: Patient was seen and examined. Follow-up on current diagnosis of AMS which is still present. Overnight uneventful. Still in restraints. Imaging, nursing note , chart, labs and old chart reviewed. Hospitalist Physical - Physical exam Narrative exam: GEN: WDWN, NAD, Awake, Alert, confused HEENT: NCAT, EOMI, PERRL, OP Clear NECK: supple, no adenopathy, no thyromegaly, no JVD CVS/HEART: RRR, normal S1S2, pulses present bilaterally CHEST/LUNGS: CTA B, Symmetrical chest expansion, good air entry bilaterally GI/Abdomen: soft, NTND, good bowel sounds, no guarding or rebound /Bladder: no suprapubic tenderness, no CVA or paraspinal tenderness EXT/Skin: no c/c/e, no obvious rash MSK: FROM x 4 Neuro: CN 2-12 grossly intact, doesn't follow commands Psych: aggressive and agitated - Constitutional Vitals: Temp Pulse Resp BP Pulse Ox 97.4 F L 59 L 20 167/72 97 06/18/18 16:00 06/18/18 16:00 06/18/18 16:00 06/18/18 16:00 06/18/18 16:00 General appearance: Present: well-nourished, other (restraint) Results - Labs CBC & Chem 7: 06/18/18 06:28 06/18/18 06:28 Labs: Laboratory Last Values WBC 7.6 K/mm3 (4.5-11.0) 06/18/18 06:28 RBC 5.12 M/mm3 (3.65-5.03) H 06/18/18 06:28 Hgb 15.2 gm/dl (11.8-15.2) 06/18/18 06:28 Hct 47.1 % (35.5-45.6) H 06/18/18 06:28 MCV 92 fl (84-94) 06/18/18 06:28 MCH 30 pg (28-32) 06/18/18 06:28 MCHC 32 % (32-34) 06/18/18 06:28 RDW 15.7 % (13.2-15.2) H 06/18/18 06:28 Plt Count 150 K/mm3 (140-440) 06/18/18 06:28 Lymph % (Auto) 14.3 % (13.4-35.0) 06/18/18 06:28 [place] % (Auto) 9.0 % (0.0-7.3) H 06/18/18 06:28 Eos % (Auto) 1.6 % (0.0-4.3) 06/18/18 06:28 Baso % (Auto) 0.2 % (0.0-1.8) 06/18/18 06:28 Lymph # 1.1 K/mm3 (1.2-5.4) L 06/18/18 06:28 [place] # 0.7 K/mm3 (0.0-0.8) 06/18/18 06:28 Eos # 0.1 K/mm3 (0.0-0.4) 06/18/18 06:28 Baso # 0.0 K/mm3 (0.0-0.1) 06/18/18 06:28 Seg Neutrophils % 74.9 % (40.0-70.0) H 06/18/18 06:28 Seg Neutrophils # 5.7 K/mm3 (1.8-7.7) 06/18/18 06:28 Sodium 156 mmol/L (137-145) H 06/18/18 06:28 Potassium 3.7 mmol/L (3.6-5.0) 06/18/18 06:28 Chloride 118.4 mmol/L (98-107) H 06/18/18 06:28 Carbon Dioxide 22 mmol/L (22-30) 06/18/18 06:28 Anion Gap 19 mmol/L 06/18/18 06:28 BUN 29 mg/dL (9-20) H 06/18/18 06:28 Creatinine 1.4 mg/dL (0.8-1.5) 06/18/18 06:28 Estimated GFR 49 ml/min 06/18/18 06:28 BUN/Creatinine Ratio 21 % 06/18/18 06:28 Glucose 132 mg/dL (75-100) H 06/18/18 06:28 POC Glucose 113 (70-105) H 06/15/18 22:24 Lactic Acid 1.20 mmol/L (0.7-2.0) 06/15/18 13:38 Calcium 9.2 mg/dL (8.4-10.2) 06/18/18 06:28 Phosphorus 2.60 mg/dL (2.5-4.5) D 06/18/18 06:28 Total Bilirubin 0.80 mg/dL (0.1-1.2) 06/14/18 Unknown AST 51 units/L (5-40) H 06/14/18 Unknown ALT 24 units/L (7-56) 06/14/18 Unknown Alkaline Phosphatase 110 units/L (35-129) 06/14/18 Unknown Ammonia 44.0 umol/L (25-60) 06/17/18 18:16 Troponin T 0.036 ng/mL (0.00-0.029) H 06/14/18 Unknown Total Protein 8.3 g/dL (6.3-8.2) H 06/14/18 Unknown Albumin 5.0 g/dL (3.9-5) 06/14/18 Unknown Albumin/Globulin Ratio 1.5 % 06/14/18 Unknown Triglycerides 156 mg/dL (2-149) H 06/14/18 Unknown Cholesterol 73 mg/dL (50-199) 06/14/18 Unknown LDL Cholesterol Direct 17 mg/dL (50-130) L 06/14/18 Unknown HDL Cholesterol 33 mg/dL (40-59) L 06/14/18 Unknown Cholesterol/HDL Ratio 2.21 % 06/14/18 Unknown TSH 1.910 mlU/mL (0.270-4.200) 06/17/18 18:16 Free T4 1.14 ng/dL (0.76-1.46) 06/17/18 18:16 Urine Color Yellow (Yellow) 06/14/18 16:44 Urine Turbidity Clear (Clear) 06/14/18 16:44 Urine pH 5.0 (5.0-7.0) 06/14/18 16:44 Ur Specific [place] 1.020 (1.003-1.030) 06/14/18 16:44 Urine Protein 100 mg/dl mg/dL (Negative) 06/14/18 16:44 Urine Glucose (UA) 50 mg/dL (Negative) 06/14/18 16:44 Urine Ketones Tr mg/dL (Negative) 06/14/18 16:44 Urine Blood Lg (Negative) 06/14/18 16:44 Urine Nitrite Neg (Negative) 06/14/18 16:44 Urine Bilirubin Neg (Negative) 06/14/18 16:44 Urine Urobilinogen < 2.0 mg/dL (<2.0) 06/14/18 16:44 Ur Leukocyte Esterase Neg (Negative) 06/14/18 16:44 Urine WBC (Auto) 6.0 /HPF (0.0-6.0) 06/14/18 16:44 Urine RBC (Auto) 2.0 /HPF (0.0-6.0) 06/14/18 16:44 U Epithel Cells (Auto) < 1.0 /HPF (0-13.0) 06/14/18 16:44 Urine Bacteria (Auto) 1+ /HPF (Negative) 06/14/18 16:44 Urine WBC Clumps Few /HPF 06/14/18 16:44 Hyaline Casts 1 /LPF 06/14/18 16:44 Granular Casts 3 /LPF 06/14/18 16:44 Urine Mucus Few /HPF 06/14/18 16:44 Salicylates < 0.3 mg/dL (2.8-20.0) L 06/14/18 Unknown Urine Opiates Screen Presumptive negative 06/14/18 16:44 Urine Methadone Screen Presumptive negative 06/14/18 16:44 Acetaminophen < 5.0 ug/mL (10.0-30.0) L 06/14/18 Unknown Ur Barbiturates Screen Presumptive negative 06/14/18 16:44 Ur Phencyclidine Scrn Presumptive negative 06/14/18 16:44 Ur Amphetamines Screen Presumptive negative 06/14/18 16:44 U Benzodiazepines Scrn Presumptive negative 06/14/18 16:44 [place] 0.9 mmol/L (0.0-1.2) 06/17/18 06:55 Urine Cocaine Screen Presumptive negative 06/14/18 16:44 U Marijuana (THC) Screen Presumptive negative 06/14/18 16:44 Drugs of Abuse Note Disclamer 06/14/18 16:44 Plasma/Serum Alcohol < 0.01 % (0-0.07) 06/14/18 Unknown Hep Bs Antigen Non-reactive (Negative) 06/17/18 11:56 Hepatitis C Antibody Non-reactive (NonReactive) 06/17/18 11:56 HIV 1&2 Antibody Rapid Non react (Non React) 06/17/18 11:56 HIV P24 Antigen Non react (Non React) 06/17/18 11:56
[2018-06-19] MEDS: APRESOLINE IV PRN ×2 (00:18→09:38)
[2018-06-19] MEDS: D5W 1,000 ML IV SCH ×2 (00:18→09:37)
[2018-06-19 08:09] LABS: Basophils % (Auto) 0.3 % (0.0-1.8); Eosinophils # (Auto) 0.2 K/mm3 (0.0-0.4); Eosinophils % (Auto) 2.2 % (0.0-4.3); Hematocrit 45.2 % (35.5-45.6); Hemoglobin 15.2 gm/dl (11.8-15.2); Lymphocytes # (Auto) 1.5 K/mm3 (1.2-5.4); Lymphocytes % (Auto) 15.4 % (13.4-35.0); Mean Corpuscular HGB Conc 34 % (32-34); Mean Corpuscular Hemoglobin 31 pg (28-32); Mean Corpuscular Volume 91 fl (84-94); Monocytes # (Auto) 0.9 K/mm3 (0.0-0.8); Monocytes % (Auto) 8.8 % (0.0-7.3); Platelet Count 149 K/mm3 (140-440); Red Blood Count 4.99 M/mm3 (3.65-5.03); Red Cell Distribution Width 15.6 % (13.2-15.2)
[2018-06-19 08:25] LABS: Calcium 9.1 mg/dL (8.4-10.2)
--- NOTE | 2018-06-19 09:50 | Progress Note ---
Assessment and Plan Assessment and plan: Mr. Lobo is 83 yo man with a history of schizophrenia and prior etoh abuse who presented to ED for evaluation of AMS by EMS. D/W sister Deonna. 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 According to Deonna: He lives alone, totally independent, taking care of all ADLs, chores, driving, participates in AA, manages own affairs. Deonna went out of town but called him on and he did not answer. She tried several more times with no success; therefore, she called EMS to go to the house for a well-check. He was found on the bathroom floor lethargic and not responding. We really don't know how long he was on the floor or Why he fell? Pt was found to have undifferentiated encephalopathy, acute renal failure and mild lithium toxicity. Acute renal failure, vasomotor nephropathy, poa, resolving: Nephrology is following, continue supportive care Acute Encephalopathy suspected acute CVA, poa: mental status improving since IV ativan stopped, CT head unremarkable, cont neuro checks, aspiration precautions , seizure precautions. SIRS without infection found on admission, negative cxr and ua [place] toxicity resolved, repeat level normal h/o schizophrenia: Psych is following Hypernatremia: Renal is following, d5 1/2NS DVT prophylaxis: SCD to BLE while in bed. No MRI due to PPM, so repeat CT head. His mental status is improving today, RN considering a trail of restraint free period. Now orientated to name and birthday. History Interval history: Patient was seen and examined. Follow-up on current diagnosis of AMS which is still present. Overnight uneventful. Still in restraints. Imaging, nursing note , chart, labs and old chart reviewed. Hospitalist Physical - Physical exam Narrative exam: GEN: WDWN, NAD, Awake, Alert, confused, orientated x 1 now HEENT: NCAT, EOMI, PERRL, OP Clear NECK: supple, no adenopathy, no thyromegaly, no JVD CVS/HEART: RRR, normal S1S2, pulses present bilaterally CHEST/LUNGS: CTA B, Symmetrical chest expansion, good air entry bilaterally GI/Abdomen: soft, NTND, good bowel sounds, no guarding or rebound /Bladder: no suprapubic tenderness, no CVA or paraspinal tenderness EXT/Skin: no c/c/e, no obvious rash MSK: FROM x 4 Neuro: CN 2-12 grossly intact, doesn't follow commands Psych: calm - Constitutional Vitals: Temp Pulse Resp BP Pulse Ox 97.9 F 60 18 125/80 96 06/19/18 08:52 06/19/18 09:43 06/19/18 08:52 06/19/18 09:43 06/19/18 08:52 General appearance: Present: well-nourished, other (restraint) Results - Labs CBC & Chem 7: 06/19/18 06:23 06/19/18 06:23 Labs: Laboratory Last Values WBC 9.9 K/mm3 (4.5-11.0) 06/19/18 06:23 RBC 4.99 M/mm3 (3.65-5.03) 06/19/18 06:23 Hgb 15.2 gm/dl (11.8-15.2) 06/19/18 06:23 Hct 45.2 % (35.5-45.6) 06/19/18 06:23 MCV 91 fl (84-94) 06/19/18 06:23 MCH 31 pg (28-32) 06/19/18 06:23 MCHC 34 % (32-34) 06/19/18 06:23 RDW 15.6 % (13.2-15.2) H 06/19/18 06:23 Plt Count 149 K/mm3 (140-440) 06/19/18 06:23 Lymph % (Auto) 15.4 % (13.4-35.0) 06/19/18 06:23 [place] % (Auto) 8.8 % (0.0-7.3) H 06/19/18 06:23 Eos % (Auto) 2.2 % (0.0-4.3) 06/19/18 06:23 Baso % (Auto) 0.3 % (0.0-1.8) 06/19/18 06:23 Lymph # 1.5 K/mm3 (1.2-5.4) 06/19/18 06:23 [place] # 0.9 K/mm3 (0.0-0.8) H 06/19/18 06:23 Eos # 0.2 K/mm3 (0.0-0.4) 06/19/18 06:23 Baso # 0.0 K/mm3 (0.0-0.1) 06/19/18 06:23 Seg Neutrophils % 73.3 % (40.0-70.0) H 06/19/18 06:23 Seg Neutrophils # 7.3 K/mm3 (1.8-7.7) 06/19/18 06:23 Sodium 152 mmol/L (137-145) H 06/19/18 06:23 Potassium 3.5 mmol/L (3.6-5.0) L 06/19/18 06:23 Chloride 114.5 mmol/L (98-107) H 06/19/18 06:23 Carbon Dioxide 23 mmol/L (22-30) 06/19/18 06:23 Anion Gap 18 mmol/L 06/19/18 06:23 BUN 24 mg/dL (9-20) H 06/19/18 06:23 Creatinine 1.2 mg/dL (0.8-1.5) 06/19/18 06:23 Estimated GFR 58 ml/min 06/19/18 06:23 BUN/Creatinine Ratio 20 % 06/19/18 06:23 Glucose 144 mg/dL (75-100) H 06/19/18 06:23 POC Glucose 113 (70-105) H 06/15/18 22:24 Lactic Acid 1.20 mmol/L (0.7-2.0) 06/15/18 13:38 Calcium 9.1 mg/dL (8.4-10.2) 06/19/18 06:23 Phosphorus 2.40 mg/dL (2.5-4.5) L 06/19/18 06:23 Total Bilirubin 0.80 mg/dL (0.1-1.2) 06/14/18 Unknown AST 51 units/L (5-40) H 06/14/18 Unknown ALT 24 units/L (7-56) 06/14/18 Unknown Alkaline Phosphatase 110 units/L (35-129) 06/14/18 Unknown Ammonia 44.0 umol/L (25-60) 06/17/18 18:16 Troponin T 0.036 ng/mL (0.00-0.029) H 06/14/18 Unknown Total Protein 8.3 g/dL (6.3-8.2) H 06/14/18 Unknown Albumin 5.0 g/dL (3.9-5) 06/14/18 Unknown Albumin/Globulin Ratio 1.5 % 06/14/18 Unknown Triglycerides 156 mg/dL (2-149) H 06/14/18 Unknown Cholesterol 73 mg/dL (50-199) 06/14/18 Unknown LDL Cholesterol Direct 17 mg/dL (50-130) L 06/14/18 Unknown HDL Cholesterol 33 mg/dL (40-59) L 06/14/18 Unknown Cholesterol/HDL Ratio 2.21 % 06/14/18 Unknown TSH 1.910 mlU/mL (0.270-4.200) 06/17/18 18:16 Free T4 1.14 ng/dL (0.76-1.46) 06/17/18 18:16 Urine Color Yellow (Yellow) 06/14/18 16:44 Urine Turbidity Clear (Clear) 06/14/18 16:44 Urine pH 5.0 (5.0-7.0) 06/14/18 16:44 Ur Specific [place] 1.020 (1.003-1.030) 06/14/18 16:44 Urine Protein 100 mg/dl mg/dL (Negative) 06/14/18 16:44 Urine Glucose (UA) 50 mg/dL (Negative) 06/14/18 16:44 Urine Ketones Tr mg/dL (Negative) 06/14/18 16:44 Urine Blood Lg (Negative) 06/14/18 16:44 Urine Nitrite Neg (Negative) 06/14/18 16:44 Urine Bilirubin Neg (Negative) 06/14/18 16:44 Urine Urobilinogen < 2.0 mg/dL (<2.0) 06/14/18 16:44 Ur Leukocyte Esterase Neg (Negative) 06/14/18 16:44 Urine WBC (Auto) 6.0 /HPF (0.0-6.0) 06/14/18 16:44 Urine RBC (Auto) 2.0 /HPF (0.0-6.0) 06/14/18 16:44 U Epithel Cells (Auto) < 1.0 /HPF (0-13.0) 06/14/18 16:44 Urine Bacteria (Auto) 1+ /HPF (Negative) 06/14/18 16:44 Urine WBC Clumps Few /HPF 06/14/18 16:44 Hyaline Casts 1 /LPF 06/14/18 16:44 Granular Casts 3 /LPF 06/14/18 16:44 Urine Mucus Few /HPF 06/14/18 16:44 Salicylates < 0.3 mg/dL (2.8-20.0) L 06/14/18 Unknown Urine Opiates Screen Presumptive negative 06/14/18 16:44 Urine Methadone Screen Presumptive negative 06/14/18 16:44 Acetaminophen < 5.0 ug/mL (10.0-30.0) L 06/14/18 Unknown Ur Barbiturates Screen Presumptive negative 06/14/18 16:44 Ur Phencyclidine Scrn Presumptive negative 06/14/18 16:44 Ur Amphetamines Screen Presumptive negative 06/14/18 16:44 U Benzodiazepines Scrn Presumptive negative 06/14/18 16:44 [place] 0.9 mmol/L (0.0-1.2) 06/17/18 06:55 Urine Cocaine Screen Presumptive negative 06/14/18 16:44 U Marijuana (THC) Screen Presumptive negative 06/14/18 16:44 Drugs of Abuse Note Disclamer 06/14/18 16:44 Plasma/Serum Alcohol < 0.01 % (0-0.07) 06/14/18 Unknown Hep Bs Antigen Non-reactive (Negative) 06/17/18 11:56 Hepatitis C Antibody Non-reactive (NonReactive) 06/17/18 11:56 HIV 1&2 Antibody Rapid Non react (Non React) 06/17/18 11:56 HIV P24 Antigen Non react (Non React) 06/17/18 11:56
--- NOTE | 2018-06-19 10:39 | Progress Note ---
Assessment and Plan Acute Renal Failure secondary to Prerenal Azotemia: - Renal function reviewed. Serum creatinine 1.2 today, yesterday's serum creatinine 1.4 - On IV hydration with D5W @ 100 ml/hr - Baseline serum creatinine unknown - Urine lytes showed proteinuria - SPEP, ARAM, ANCA, anti-GBM, Complements-pending - HIV, HCV and Hep B- negative - Avoid Nephrotoxic agents - Strict I&O monitoring - Obtain daily weights - Renally dose medications - Continue to monitor renal function Metabolic encephalopathy: - CT head was negative - [place] level 0.9 on 06/17/18 - Continue to observe off Ativan - As per Neurology Sepsis: Leukocytosis: -On IV Levaquin -As per primary team Hypernatremia - Secondary to poor oral intake - On D5W@ 100 ml/hr - Will start water flushes when NGT or Dobhoff is available Hypokalemia: KCl 10 meq IV x 1 Hypertension - On Norvasc and prn Hydralazine - Adjust regimen as needed Subjective Date of service: 06/19/18 Principal diagnosis: ARF, encephalopathy Interval history: Patient seen lying in bed. More awake today but with altered mentation, confused , mumbles words Objective - Vital Signs Vital signs: Vital Signs - 12hr 06/18/18 06/19/18 06/19/18 23:44 00:18 01:15 Temperature 98.2 F Pulse Rate 60 60 60 Respiratory 18 20 Rate Blood Pressure 198/79 198/79 154/57 Blood Pressure [Left] O2 Sat by Pulse 92 93 Oximetry 06/19/18 06/19/18 06/19/18 05:16 08:52 09:43 Temperature 98.1 F 97.9 F Pulse Rate 60 60 60 Respiratory 18 18 Rate Blood Pressure 142/64 169/84 Blood Pressure 125/80 [Left] O2 Sat by Pulse 93 96 Oximetry - General Appearance General appearance: appears stated age, other (Confused) EENT: ATNC, PERRL Neck: no JVD, supple Respiratory: Present: Clear to Ascultation Cardiology: regular, S1S2 Gastrointestinal: normoactive bowel sounds Integumentary: warm and dry Neurologic: confused Musculoskeletal: other (No edema) - Lab 06/19/18 06:23 06/19/18 06:23 Most recent lab results Calcium 9.1 mg/dL (8.4-10.2) 06/19/18 06:23 Phosphorus 2.40 mg/dL (2.5-4.5) L 06/19/18 06:23
[2018-06-19] MEDS ORDERED: KCL 10MEQ/100ML 10 MEQ/100 ML BAG IV ONE (10:42)
[2018-06-19] MEDS: NORVASC PO SCH (12:13)
[2018-06-19] MEDS: SODIUM CHLORIDE FLUSH SYRINGE 10 ML IV SCH ×2 (12:13→22:33)
[2018-06-19] MEDS: LEVAQUIN 250MG/50ML 250 MG/50 ML BAG IV SCH (12:14)
--- NOTE | 2018-06-19 13:01 | Progress Note ---
Subjective - Reason for Consult Consult date: 06/19/18 Reason for consult: Psychiatry Follow-up - Chief Complaint Chief complaint: "AMS" 83 year old white male who presents to the emergency room with altered mental status. Today the patient is calm with dysarthric speech. He was able to follow some commands (he squeezed my and tried to lift both his legs). The patient is still confused. No gestures of SI/HI's. Mental Status Exam - Vital signs Last Vital Signs Temp 97.9 F 06/19/18 08:52 Pulse 60 06/19/18 10:00 Resp 18 06/19/18 10:00 BP 125/80 06/19/18 09:43 Pulse Ox 96 06/19/18 10:00 - Exam Narrative exam: The MSE could not be completed because of the patient's condition. Assessment and Plan Impression: Hx of Schizophrenia per the record. Today the patient is calm with dysarthric speech. NA 152. The patient is in restraints. Neuro is following. Medical: Acute Encephalopathy Recommendation/Plan: Gather collateral information to help determine proper treatment and dispo. Hold psy medications at this time. Recommend Delirium Precautions below: 1. Frequently reorient patient and involve him/her in their care (simple explanations of procedures, tests, medications). 2. Lights on and shades open during daytime hours. 3. Write date and goals of care in a visible place. 4. Try to avoid unnecessary interruptions to sleep during nighttime hours. 5. Obtain glasses, hearing aids from home if patient uses these at baseline. 6. Avoid medications that may exacerbate delirium (especially narcotics, benzodiazepines, barbiturates, ambien, lunesta, and medications with excessive anticholinergic properties). 7. Recommend Haldol 2 mg Q6hrs PRN PO/IM for acute agitation. 8. D/C restraints when not indicated.
--- NOTE | 2018-06-19 14:09 | Progress Note ---
Assessment and Plan Slowly resolving encephalopathy. Etiology still unclear. We have been informed that the patient has a pacemaker which will preclude his getting an MRI scan. A repeat CT scan would be helpful to see if any ischemic changes have evolved. Plan - PT consult. Awaiting speech therapy for swallowing evaluation. Subjective Date of service: 06/19/18 Principal diagnosis: ARF, encephalopathy Interval history: 83 year old male presented to ER 06/14, having been found down for an unknown length of time. He was lethargic and unable to communicate. He has been agitated and not responding verbally over the past few days. Agitation has resolved. He is verbally responsive now. Denies pain. But admits being thirsty. Objective - Exam Narrative Exam: Awake and alert. Speech dysarthric. Knows birthdate and where he is. Responding appropriately to questions. 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 Sensory intact. - Vital Sign Vital Signs - 12hr 06/19/18 06/19/18 06/19/18 05:16 08:52 09:43 Temperature 98.1 F 97.9 F Pulse Rate 60 60 60 Pulse Rate [ From Monitor] Respiratory 18 18 Rate Blood Pressure 142/64 169/84 Blood Pressure 125/80 [Left] O2 Sat by Pulse 93 96 Oximetry 06/19/18 10:00 Temperature Pulse Rate Pulse Rate [ 60 From Monitor] Respiratory 18 Rate Blood Pressure Blood Pressure [Left] O2 Sat by Pulse 96 Oximetry - Laboratory Findings CBC and BMP: 06/19/18 06:23 06/19/18 06:23 Abnormal Lab Findings: Abnormal Labs 06/14/18 06/14/18 06/14/18 13:50 16:22 16:22 WBC 15.9 H RBC 5.04 H Hgb Hct RDW Lymph % (Auto) 8.0 L [place] % (Auto) 8.9 H Lymph # [place] # 1.4 H Seg Neutrophils % 82.9 H Seg Neutrophils # 13.2 H Sodium Potassium Chloride Carbon Dioxide BUN Creatinine Glucose POC Glucose 149 H Lactic Acid 2.90 H* Calcium Phosphorus AST Troponin T Total Protein Triglycerides LDL Cholesterol Direct HDL Cholesterol Salicylates Acetaminophen [place] 06/14/18 06/14/18 06/14/18 16:22 Unknown Unknown WBC RBC Hgb Hct RDW Lymph % (Auto) [place] % (Auto) Lymph # [place] # Seg Neutrophils % Seg Neutrophils # Sodium 146 H Potassium Chloride Carbon Dioxide BUN 60 H Creatinine 2.9 H Glucose 170 H POC Glucose Lactic Acid 3.40 H* Calcium 11.2 H Phosphorus AST 51 H Troponin T 0.036 H Total Protein 8.3 H Triglycerides 156 H LDL Cholesterol Direct 17 L HDL Cholesterol 33 L Salicylates Acetaminophen [place] 1.5 H 06/14/18 06/14/18 06/15/18 Unknown Unknown 13:38 WBC 14.3 H RBC Hgb Hct RDW 15.7 H Lymph % (Auto) [place] % (Auto) Lymph # [place] # Seg Neutrophils % Seg Neutrophils # Sodium Potassium Chloride Carbon Dioxide BUN Creatinine Glucose POC Glucose Lactic Acid Calcium Phosphorus AST Troponin T Total Protein Triglycerides LDL Cholesterol Direct HDL Cholesterol Salicylates < 0.3 L Acetaminophen < 5.0 L [place] 06/15/18 06/15/18 06/16/18 13:38 22:24 06:18 WBC 11.4 H RBC 5.05 H Hgb Hct RDW 15.6 H Lymph % (Auto) 11.7 L [place] % (Auto) 8.8 H Lymph # [place] # 1.0 H Seg Neutrophils % 79.1 H Seg Neutrophils # 9.0 H Sodium 153 H Potassium Chloride 116.3 H Carbon Dioxide 21 L BUN 46 H Creatinine 1.9 H Glucose 124 H POC Glucose 113 H Lactic Acid Calcium Phosphorus AST Troponin T Total Protein Triglycerides LDL Cholesterol Direct HDL Cholesterol Salicylates Acetaminophen [place] 06/16/18 06/17/18 06/17/18 06:18 06:55 06:55 WBC RBC 5.13 H Hgb 15.4 H Hct 46.4 H RDW 15.8 H Lymph % (Auto) [place] % (Auto) 8.5 H Lymph # [place] # Seg Neutrophils % 74.7 H Seg Neutrophils # Sodium 155 H 154 H Potassium 3.4 L [place] 117.3 H 116.2 H Carbon Dioxide 21 L BUN 42 H 31 H Creatinine 1.8 H Glucose 128 H 120 H POC Glucose Lactic Acid Calcium Phosphorus 2.10 L AST Troponin T Total Protein Triglycerides LDL Cholesterol Direct HDL Cholesterol Salicylates Acetaminophen [place] 06/18/18 06/18/18 06/19/18 06:28 06:28 01:23 WBC RBC 5.12 H Hgb Hct 47.1 H RDW 15.7 H Lymph % (Auto) [place] % (Auto) 9.0 H Lymph # 1.1 L [place] # Seg Neutrophils % 74.9 H Seg Neutrophils # Sodium 156 H 150 H Potassium Chloride 118.4 H Carbon Dioxide BUN 29 H Creatinine Glucose 132 H POC Glucose Lactic Acid Calcium Phosphorus AST Troponin T Total Protein Triglycerides LDL Cholesterol Direct HDL Cholesterol Salicylates Acetaminophen [place] 06/19/18 06/19/18 06/19/18 06:23 06:23 11:26 WBC RBC Hgb Hct RDW 15.6 H Lymph % (Auto) [place] % (Auto) 8.8 H Lymph # [place] # 0.9 H Seg Neutrophils % 73.3 H Seg Neutrophils # Sodium 152 H Potassium 3.5 L Chlor[place] 114.5 H Carbon Dioxide BUN 24 H Creatinine Glucose 144 H POC Glucose 143 H Lactic Acid Calcium Phosphorus 2.40 L AST Troponin T Total Protein Triglycerides LDL Cholesterol Direct HDL Cholesterol Salicylates Acetaminophen [place]
--- NOTE | 2018-06-19 15:59 | Cat Scan Report ---
FINAL REPORT EXAM: CT HEAD/BRAIN WO CON HISTORY: CVA TECHNIQUE: Standard unenhanced CT of the head at 5.0 millimeter axial increments. PRIORS: CT head 06/14/2018 FINDINGS: The ventricular system is normal in size and configuration. There is no evidence for parenchymal volume loss. There is a remote lacunar infarct in the right caudate nucleus, unchanged. There is no evidence for mass lesion, mass effect, midline shift, acute intracranial hemorrhage, or acute ischemia/ infarction. No evidence for acute skull fracture is seen. No abnormality in the overlying scalp soft tissues is seen. Visualized paranasal sinuses are clear. Opacification of the left mastoid air sizes consistent with mastoiditis, unchanged. 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 No acute intracranial process noted. No change. Persistent left mastoiditis.
[2018-06-19 19:57] LABS: Chloride, Urine 68.2 mmolL (110-250); Creatinine,Urine 129.8 mg/dL (0.1-20.0)
[2018-06-20] MEDS: D5W 1,000 ML IV SCH (05:55)
[2018-06-20 07:21] LABS: Basophils % (Auto) 0.3 % (0.0-1.8); Eosinophils # (Auto) 0.3 K/mm3 (0.0-0.4); Eosinophils % (Auto) 3.4 % (0.0-4.3); Hematocrit 45.3 % (35.5-45.6); Hemoglobin 14.9 gm/dl (11.8-15.2); Lymphocytes # (Auto) 1.4 K/mm3 (1.2-5.4); Lymphocytes % (Auto) 14.9 % (13.4-35.0); Mean Corpuscular HGB Conc 33 % (32-34); Mean Corpuscular Hemoglobin 30 pg (28-32); Mean Corpuscular Volume 91 fl (84-94); Monocytes # (Auto) 0.8 K/mm3 (0.0-0.8); Monocytes % (Auto) 8.6 % (0.0-7.3); Platelet Count 139 K/mm3 (140-440); Red Blood Count 4.98 M/mm3 (3.65-5.03)
[2018-06-20 07:31] LABS: BUN/Creatinine Ratio 20; Blood Urea Nitrogen 20 mg/dL (9-20); Hemolysis Index 62
[2018-06-20] MEDS: NORVASC PO SCH (10:59)
[2018-06-20] MEDS: SODIUM CHLORIDE FLUSH SYRINGE 10 ML IV SCH ×2 (11:00→22:56)
[2018-06-20] MEDS: LEVAQUIN 250MG/50ML 250 MG/50 ML BAG IV SCH (13:08)
--- NOTE | 2018-06-20 13:52 | Progress Note ---
Assessment and Plan Acute Renal Failure secondary to prerenal azotemia: - Renal function reviewed, SCr level was 1.0 today, yesterday's SCr level was 1.2 - Exact SCr baseline unknown - Decrease D5W infusion to 50 ml/hr - HCV, HBV, HIV negative - SPEP, ARAM, ANCA, anti-GBM, complements levels pending - Avoid Nephrotoxic agents - Obtain daily weights - Renally dose medications - Renal plan d/w Dr Villareal - Continue supportive therapy Acute Encephalopathy - CT Head showed no acute intracranial findings, left mastoid sinus disease - [place] level was 0.9 on 06/17/18 - Neurology and Psych on board Sepsis: Leukocytosis: - On levaquin - As per primary team Hypernatremia - Secondary to poor oral intake - Started on pureed diet - Improving - Serum sodium level worsened to 146 today, yesterday's serum sodium level was 152 - Decrease D5W infusion to 50 ml/hr Hypertension - On amlodipine 10 mg orally once a day and PRN Hydralazine 20 mg IV every 6 hrs - Adjust regimen as needed Subjective Date of service: 06/20/18 Principal diagnosis: ARF, encephalopathy Interval history: Pt in bed, more alert today, follows simple commands, his sister who resides in [place] at bedside Objective - Vital Signs Vital signs: Vital Signs - 12hr 06/20/18 06/20/18 06/20/18 05:02 08:00 08:07 Temperature 97.9 F 97.5 F L Pulse Rate 60 60 Pulse Rate [ From Monitor] Respiratory 18 20 Rate Blood Pressure 169/82 171/84 O2 Sat by Pulse 97 98 Oximetry 06/20/18 10:00 Temperature Pulse Rate 60 Pulse Rate [ 60 From Monitor] Respiratory Rate Blood Pressure O2 Sat by Pulse Oximetry - General Appearance General appearance: other (awake, no acute distress) EENT: ATNC Neck: no JVD Respiratory: Present: Other (Lung sounds decreased bilaterally, unlabored) Cardiology: regular, S1S2 Gastrointestinal: normoactive bowel sounds, no tenderness Integumentary: warm and dry Neurologic: alert and oriented x3 Musculoskeletal: other (no edema to both lower extremities) Psychiatric: cooperative - Lab 06/20/18 06:18 06/20/18 06:18 Most recent lab results Calcium 9.0 mg/dL (8.4-10.2) 07/21/18 06:18 Phosphorus 2.60 mg/dL (2.5-4.5) 06/20/18 06:18 Urine Creatinine 129.8 mg/dL (0.1-20.0) H 06/19/18 19:31 Urine Sodium 77 mmol/L 06/19/18 19:31
--- NOTE | 2018-06-20 15:51 | Progress Note ---
Assessment and Plan Assessment and plan: Mr. Lobo is 83 yo man with a history of schizophrenia and prior etoh abuse who presented to ED for evaluation of AMS by EMS. D/W sister Deonna. 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 According to Deonna: He lives alone, totally independent, taking care of all ADLs, chores, driving, participates in AA, manages own affairs. eDonna went out of town but called him on and he did not answer. She tried several more times with no success; therefore, she called EMS to go to the house for a well-check. He was found on the bathroom floor lethargic and not responding. We really don't know how long he was on the floor or Why he fell? Pt was found to have undifferentiated encephalopathy, acute renal failure and mild lithium toxicity. Acute renal failure, vasomotor nephropathy, poa, resolving: Nephrology is following, continue supportive care Acute Encephalopathy resolving, due to acute CVA, poa: mental status improving since IV ativan stopped, CT head unremarkable, cont neuro checks, aspiration precautions, seizure precautions. SIRS without infection found on admission, negative cxr and ua [place] toxicity resolved, repeat level normal h/o schizophrenia: Psych is following Hypernatremia: Renal is following, d5 1/2NS DVT prophylaxis: SCD to BLE while in bed. Advance care planning: full code Disposition: continue inpatient care, SNF vs Acute rehab No MRI due to PPM, so repeat CT head which showed a new lacunar right caudate nucleus infarct, see below: * 06/14/18 CT head w/o contrast IMPRESSION: 1. No acute intracranial findings. 2. Left mastoid sinus disease. 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 No acute intracranial process noted. No change. Persistent left mastoiditis. History Interval history: Patient was seen and examined. Follow-up on current diagnosis of AMS which is resolving. Overnight uneventful. Imaging, nursing note, chart, labs and old chart reviewed. Sisters Deonna and Keiry at bedside. Hospitalist Physical - Physical exam Narrative exam: GEN: WDWN, NAD, Awake, Alert, confused, orientated x 2 now HEENT: NCAT, EOMI, PERRL, OP Clear NECK: supple, no adenopathy, no thyromegaly, no JVD CVS/HEART: RRR, normal S1S2, pulses present bilaterally CHEST/LUNGS: CTA B, Symmetrical chest expansion, good air entry bilaterally GI/Abdomen: soft, NTND, good bowel sounds, no guarding or rebound /Bladder: no suprapubic tenderness, no CVA or paraspinal tenderness EXT/Skin: no c/c/e, no obvious rash MSK: FROM x 4 Neuro: CN 2-12 grossly intact, follow commands, dysarthric Psych: calm - Constitutional Vitals: Temp Pulse Resp BP Pulse Ox 97.5 F L 60 20 171/84 98 06/20/18 08:00 06/20/18 10:00 06/20/18 08:07 06/20/18 08:07 06/20/18 08:07 General appearance: Present: well-nourished, other (restraint) Results - Labs CBC & Chem 7: 06/20/18 06:18 06/20/18 06:18 Labs: Laboratory Last Values WBC 9.1 K/mm3 (4.5-11.0) 06/20/18 06:18 RBC 4.98 M/mm3 (3.65-5.03) 06/20/18 06:18 Hgb 14.9 gm/dl (11.8-15.2) 06/20/18 06:18 Hct 45.3 % (35.5-45.6) 06/20/18 06:18 MCV 91 fl (84-94) 06/20/18 06:18 MCH 30 pg (28-32) 06/20/18 06:18 MCHC 33 % (32-34) 06/20/18 06:18 RDW 15.0 % (13.2-15.2) 06/20/18 06:18 Plt Count 139 K/mm3 (140-440) L 06/20/18 06:18 Lymph % (Auto) 14.9 % (13.4-35.0) 06/20/18 06:18 [place] % (Auto) 8.6 % (0.0-7.3) H 06/20/18 06:18 Eos % (Auto) 3.4 % (0.0-4.3) 06/20/18 06:18 Baso % (Auto) 0.3 % (0.0-1.8) 06/20/18 06:18 Lymph # 1.4 K/mm3 (1.2-5.4) 06/20/18 06:18 [place] # 0.8 K/mm3 (0.0-0.8) 06/20/18 06:18 Eos # 0.3 K/mm3 (0.0-0.4) 06/20/18 06:18 Baso # 0.0 K/mm3 (0.0-0.1) 06/20/18 06:18 Seg Neutrophils % 72.8 % (40.0-70.0) H 06/20/18 06:18 Seg Neutrophils # 6.7 K/mm3 (1.8-7.7) 06/20/18 06:18 Sodium 146 mmol/L (137-145) H 06/20/18 06:18 Potassium 3.6 mmol/L (3.6-5.0) 06/20/18 06:18 Chloride 110.3 mmol/L (98-107) H 06/20/18 06:18 Carbon Dioxide 22 mmol/L (22-30) 06/20/18 06:18 Anion Gap 17 mmol/L 06/20/18 06:18 BUN 20 mg/dL (9-20) 06/20/18 06:18 Creatinine 1.0 mg/dL (0.8-1.5) 06/20/18 06:18 Estimated GFR > 60 ml/min 06/20/18 06:18 BUN/Creatinine Ratio 20 % 06/20/18 06:18 Glucose 115 mg/dL (75-100) H 06/20/18 06:18 POC Glucose 157 (70-105) H 06/20/18 11:58 Lactic Acid 1.20 mmol/L (0.7-2.0) 06/15/18 13:38 Calcium 9.0 mg/dL (8.4-10.2) 06/20/18 06:18 Phosphorus 2.60 mg/dL (2.5-4.5) 06/20/18 06:18 Total Bilirubin 0.80 mg/dL (0.1-1.2) 06/14/18 Unknown AST 51 units/L (5-40) H 06/14/18 Unknown ALT 24 units/L (7-56) 06/14/18 Unknown Alkaline Phosphatase 110 units/L (35-129) 06/14/18 Unknown Ammonia 44.0 umol/L (25-60) 06/17/18 18:16 Troponin T 0.036 ng/mL (0.00-0.029) H 06/14/18 Unknown Total Protein 8.3 g/dL (6.3-8.2) H 06/14/18 Unknown Albumin 5.0 g/dL (3.9-5) 06/14/18 Unknown Albumin/Globulin Ratio 1.5 % 06/14/18 Unknown Triglycerides 156 mg/dL (2-149) H 06/14/18 Unknown Cholesterol 73 mg/dL (50-199) 06/14/18 Unknown LDL Cholesterol Direct 17 mg/dL (50-130) L 06/14/18 Unknown HDL Cholesterol 33 mg/dL (40-59) L 06/14/18 Unknown Cholesterol/HDL Ratio 2.21 % 06/14/18 Unknown TSH 1.910 mlU/mL (0.270-4.200) 06/17/18 18:16 Free T4 1.14 ng/dL (0.76-1.46) 06/17/18 18:16 Urine Color Yellow (Yellow) 06/14/18 16:44 Urine Turbidity Clear (Clear) 06/14/18 16:44 Urine pH 5.0 (5.0-7.0) 06/14/18 16:44 Ur Specific [place] 1.020 (1.003-1.030) 06/14/18 16:44 Urine Protein 100 mg/dl mg/dL (Negative) 06/14/18 16:44 Urine Glucose (UA) 50 mg/dL (Negative) 06/14/18 16:44 Urine Ketones Tr mg/dL (Negative) 06/14/18 16:44 Urine Blood Lg (Negative) 06/14/18 16:44 Urine Nitrite Neg (Negative) 06/14/18 16:44 Urine Bilirubin Neg (Negative) 06/14/18 16:44 Urine Urobilinogen < 2.0 mg/dL (<2.0) 06/14/18 16:44 Ur Leukocyte Esterase Neg (Negative) 06/14/18 16:44 Urine WBC (Auto) 6.0 /HPF (0.0-6.0) 06/14/18 16:44 Urine RBC (Auto) 2.0 /HPF (0.0-6.0) 06/14/18 16:44 U Epithel Cells (Auto) < 1.0 /HPF (0-13.0) 06/14/18 16:44 Urine Bacteria (Auto) 1+ /HPF (Negative) 06/14/18 16:44 Urine WBC Clumps Few /HPF 06/14/18 16:44 Hyaline Casts 1 /LPF 06/14/18 16:44 Granular Casts 3 /LPF 06/14/18 16:44 Urine Mucus Few /HPF 06/14/18 16:44 Urine Osmolality 690 Mosm/kg 06/19/18 19:31 Urine Creatinine 129.8 mg/dL (0.1-20.0) H 06/19/18 19:31 Urine Sodium 77 mmol/L 06/19/18 19:31 Urine Chloride 68.2 mmolL (110-250) L 06/19/18 19:31 Salicylates < 0.3 mg/dL (2.8-20.0) L 06/14/18 Unknown Urine Opiates Screen Presumptive negative 06/14/18 16:44 Urine Methadone Screen Presumptive negative 06/14/18 16:44 Acetaminophen < 5.0 ug/mL (10.0-30.0) L 06/14/18 Unknown Ur Barbiturates Screen Presumptive negative 06/14/18 16:44 Ur Phencyclidine Scrn Presumptive negative 06/14/18 16:44 Ur Amphetamines Screen Presumptive negative 06/14/18 16:44 U Benzodiazepines Scrn Presumptive negative 06/14/18 16:44 [place] 0.9 mmol/L (0.0-1.2) 06/17/18 06:55 Urine Cocaine Screen Presumptive negative 06/14/18 16:44 U Marijuana (THC) Screen Presumptive negative 06/14/18 16:44 Drugs of Abuse Note Disclamer 06/14/18 16:44 Plasma/Serum Alcohol < 0.01 % (0-0.07) 06/14/18 Unknown Hep Bs Antigen Non-reactive (Negative) 06/17/18 11:56 Hepatitis C Antibody Non-reactive (NonReactive) 06/17/18 11:56 HIV 1&2 Antibody Rapid Non react (Non React) 06/17/18 11:56 HIV P24 Antigen Non react (Non React) 06/17/18 11:56
[2018-06-21 07:05] LABS: Basophils # (Auto) 0.1 K/mm3 (0.0-0.1); Basophils % (Auto) 0.6 % (0.0-1.8); Eosinophils # (Auto) 0.2 K/mm3 (0.0-0.4); Hematocrit 48.1 % (35.5-45.6); Hemoglobin 15.7 gm/dl (11.8-15.2); Lymphocytes # (Auto) 1.6 K/mm3 (1.2-5.4); Lymphocytes % (Auto) 17.3 % (13.4-35.0); Mean Corpuscular HGB Conc 33 % (32-34); Mean Corpuscular Hemoglobin 30 pg (28-32); Mean Corpuscular Volume 92 fl (84-94); Monocytes # (Auto) 0.9 K/mm3 (0.0-0.8); Monocytes % (Auto) 9.9 % (0.0-7.3); Platelet Count 134 K/mm3 (140-440); Red Blood Count 5.23 M/mm3 (3.65-5.03); Red Cell Distribution Width 15.8 % (13.2-15.2)
[2018-06-21] MEDS: NORVASC PO SCH (09:46)
[2018-06-21] MEDS: SODIUM CHLORIDE FLUSH SYRINGE 10 ML IV SCH ×2 (09:47→21:45)
--- NOTE | 2018-06-21 10:55 | Progress Note ---
Subjective - Reason for Consult Consult date: 06/21/18 Reason for consult: Psychiatry Follow-up - Chief Complaint Chief complaint: "Hello" 83 year old white male who presents to the emergency room with altered mental status. Today the patient is calm and cooperative with dysarthric speech during the assessment. He was able to state his and ID his sister Katherine Medley who was at the bedside. He did struggle answering some questions when asked. Ms Medley confirmed that her brother has a hx of Bipolar DO and takes lithium. The patient confirmed what his sister said by nodding to "yes" when asked about his mental health hx. He could not explain what happen prior to his arrival to the hospital, but denies trying to kill himself. He denies SI/HI's and AVH's. Per the notes, no behavioral disturbance overnight. Mental Status Exam - Vital signs Last Vital Signs Temp 98.0 F 06/21/18 07:29 Pulse 60 06/21/18 07:29 Resp 20 06/21/18 07:29 BP 160/80 06/21/18 09:46 Pulse Ox 98 06/21/18 07:29 - Exam Narrative exam: MSE: Appearance: calm, cooperative Behavior: regular eye contact Speech: dysarthric Mood: "okay" Affect: congruent to mood Thought Process: circumstantial Thought Content: denies SI/HI's and AVH's Motor Activity: sitting up in bed Cognition: A/O x 3 Insight: fair Judgment: fair Assessment and Plan Impression: Hx of Bipolar DO per the patient and his sister Keiry Medley. Today the patient is calm and cooperative during the assessment. NA 146. The patient mental status is improving. The patient is not in restraints. Neuro is following. Medical: Acute Encephalopathy. 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 No acute intracranial process noted. No change. Persistent left mastoiditis. Recommendation/Plan: Will continue to monitor the patient's mental status. Acute rehab vs SNF when discharged. Recommend Delirium Precautions below: 1. Frequently reorient patient and involve him/her in their care (simple explanations of procedures, tests, medications). 2. Lights on and shades open during daytime hours. 3. Write date and goals of care in a visible place. 4. Try to avoid unnecessary interruptions to sleep during nighttime hours. 5. Obtain glasses, hearing aids from home if patient uses these at baseline. 6. Avoid medications that may exacerbate delirium (especially narcotics, benzodiazepines, barbiturates, ambien, lunesta, and medications with excessive anticholinergic properties). 7. Recommend Haldol 2 mg Q6hrs PRN PO/IM for acute agitation.
--- NOTE | 2018-06-21 13:56 | Progress Note ---
Assessment and Plan Assessment and plan: Mr. Lobo is 83 yo man with a history of schizophrenia and prior etoh abuse who presented to ED for evaluation of AMS by EMS. D/W sister Deonna. 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 According to Deonna: He lives alone, totally independent, taking care of all ADLs, chores, driving, participates in AA, manages own affairs. Deonna went out of town but called him on and he did not answer. She tried several more times with no success; therefore, she called EMS to go to the house for a well-check. He was found on the bathroom floor lethargic and not responding. We really don't know how long he was on the floor or Why he fell? Pt was found to have undifferentiated encephalopathy, acute renal failure and mild lithium toxicity. 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 SIRS without infection found on admission, negative cxr and ua [place] toxicity resolved, repeat level normal h/o schizophrenia: Psych is following Hypernatremia: Renal is following, d5 1/2NS DVT prophylaxis: SCD to BLE while in bed. Advance care planning: full code Disposition: continue inpatient care, SNF vs Acute rehab No MRI due to PPM, so repeat CT head which showed a new lacunar right caudate nucleus infarct, see below: * 06/14/18 CT head w/o contrast IMPRESSION: 1. No acute intracranial findings. 2. Left mastoid sinus disease. 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 No acute intracranial process noted. No change. Persistent left mastoiditis. History Interval history: Patient was seen and examined. Follow-up on current diagnosis of AMS which is resolving. Overnight uneventful. Imaging, nursing note, chart, labs and old chart reviewed. Sisters Deonna and Keiry at bedside. Hospitalist Physical - Physical exam Narrative exam: GEN: WDWN, NAD, Awake, Alert, confused, orientated x 2 now HEENT: NCAT, EOMI, PERRL, OP Clear NECK: supple, no adenopathy, no thyromegaly, no JVD CVS/HEART: RRR, normal S1S2, pulses present bilaterally CHEST/LUNGS: CTA B, Symmetrical chest expansion, good air entry bilaterally GI/Abdomen: soft, NTND, good bowel sounds, no guarding or rebound /Bladder: no suprapubic tenderness, no CVA or paraspinal tenderness EXT/Skin: no c/c/e, no obvious rash MSK: FROM x 4, right sided weaker than left; right msk 3/5 vs left 4/5 msk strength Neuro: CN 2-12 grossly intact, follow commands, dysarthric Psych: calm - Constitutional Vitals: Temp Pulse Resp BP Pulse Ox 97.9 F 60 20 139/53 93 06/21/18 11:09 06/21/18 11:09 06/21/18 11:09 06/21/18 11:09 06/21/18 11:09 General appearance: Present: well-nourished, other (restraint) Results - Labs CBC & Chem 7: 06/21/18 06:19 06/20/18 06:18 Labs: Laboratory Last Values WBC 9.5 K/mm3 (4.5-11.0) 06/21/18 06:19 RBC 5.23 M/mm3 (3.65-5.03) H 06/21/18 06:19 Hgb 15.7 gm/dl (11.8-15.2) H 06/21/18 06:19 Hct 48.1 % (35.5-45.6) H 06/21/18 06:19 MCV 92 fl (84-94) 06/21/18 06:19 MCH 30 pg (28-32) 06/21/18 06:19 MCHC 33 % (32-34) 06/21/18 06:19 RDW 15.8 % (13.2-15.2) H 06/21/18 06:19 Plt Count 134 K/mm3 (140-440) L 06/21/18 06:19 Lymph % (Auto) 17.3 % (13.4-35.0) 06/21/18 06:19 [place] % (Auto) 9.9 % (0.0-7.3) H 06/21/18 06:19 Eos % (Auto) 2.0 % (0.0-4.3) 06/21/18 06:19 Baso % (Auto) 0.6 % (0.0-1.8) 06/21/18 06:19 Lymph # 1.6 K/mm3 (1.2-5.4) 06/21/18 06:19 [place] # 0.9 K/mm3 (0.0-0.8) H 06/21/18 06:19 Eos # 0.2 K/mm3 (0.0-0.4) 06/21/18 06:19 Baso # 0.1 K/mm3 (0.0-0.1) 06/21/18 06:19 Seg Neutrophils % 70.2 % (40.0-70.0) H 06/21/18 06:19 Seg Neutrophils # 6.7 K/mm3 (1.8-7.7) 06/21/18 06:19 Sodium 146 mmol/L (137-145) H 06/20/18 06:18 Potassium 3.6 mmol/L (3.6-5.0) 06/20/18 06:18 Chloride 110.3 mmol/L (98-107) H 06/20/18 06:18 Carbon Dioxide 22 mmol/L (22-30) 06/20/18 06:18 Anion Gap 17 mmol/L 06/20/18 06:18 BUN 20 mg/dL (9-20) 06/20/18 06:18 Creatinine 1.0 mg/dL (0.8-1.5) 06/20/18 06:18 Estimated GFR > 60 ml/min 06/20/18 06:18 BUN/Creatinine Ratio 20 % 06/20/18 06:18 Glucose 115 mg/dL (75-100) H 06/20/18 06:18 POC Glucose 155 (70-105) H 06/21/18 11:17 Lactic Acid 1.20 mmol/L (0.7-2.0) 06/15/18 13:38 Calcium 9.0 mg/dL (8.4-10.2) 06/20/18 06:18 Phosphorus 2.60 mg/dL (2.5-4.5) 06/20/18 06:18 Total Bilirubin 0.80 mg/dL (0.1-1.2) 06/14/18 Unknown AST 51 units/L (5-40) H 06/14/18 Unknown ALT 24 units/L (7-56) 06/14/18 Unknown Alkaline Phosphatase 110 units/L (35-129) 06/14/18 Unknown Ammonia 44.0 umol/L (25-60) 06/17/18 18:16 Troponin T 0.036 ng/mL (0.00-0.029) H 06/14/18 Unknown Total Protein 8.3 g/dL (6.3-8.2) H 06/14/18 Unknown Albumin 5.0 g/dL (3.9-5) 06/14/18 Unknown Albumin/Globulin Ratio 1.5 % 06/14/18 Unknown Triglycerides 156 mg/dL (2-149) H 06/14/18 Unknown Cholesterol 73 mg/dL (50-199) 06/14/18 Unknown LDL Cholesterol Direct 17 mg/dL (50-130) L 06/14/18 Unknown HDL Cholesterol 33 mg/dL (40-59) L 06/14/18 Unknown Cholesterol/HDL Ratio 2.21 % 06/14/18 Unknown TSH 1.910 mlU/mL (0.270-4.200) 06/17/18 18:16 Free T4 1.14 ng/dL (0.76-1.46) 06/17/18 18:16 Urine Color Yellow (Yellow) 06/14/18 16:44 Urine Turbidity Clear (Clear) 06/14/18 16:44 Urine pH 5.0 (5.0-7.0) 06/14/18 16:44 Ur Specific [place] 1.020 (1.003-1.030) 06/14/18 16:44 Urine Protein 100 mg/dl mg/dL (Negative) 06/14/18 16:44 Urine Glucose (UA) 50 mg/dL (Negative) 06/14/18 16:44 Urine Ketones Tr mg/dL (Negative) 06/14/18 16:44 Urine Blood Lg (Negative) 06/14/18 16:44 Urine Nitrite Neg (Negative) 06/14/18 16:44 Urine Bilirubin Neg (Negative) 06/14/18 16:44 Urine Urobilinogen < 2.0 mg/dL (<2.0) 06/14/18 16:44 Ur Leukocyte Esterase Neg (Negative) 06/14/18 16:44 Urine WBC (Auto) 6.0 /HPF (0.0-6.0) 06/14/18 16:44 Urine RBC (Auto) 2.0 /HPF (0.0-6.0) 06/14/18 16:44 U Epithel Cells (Auto) < 1.0 /HPF (0-13.0) 06/14/18 16:44 Urine Bacteria (Auto) 1+ /HPF (Negative) 06/14/18 16:44 Urine WBC Clumps Few /HPF 06/14/18 16:44 Hyaline Casts 1 /LPF 06/14/18 16:44 Granular Casts 3 /LPF 06/14/18 16:44 Urine Mucus Few /HPF 06/14/18 16:44 Urine Osmolality 690 Mosm/kg 06/19/18 19:31 Urine Creatinine 129.8 mg/dL (0.1-20.0) H 06/19/18 19:31 Urine Sodium 77 mmol/L 06/19/18 19:31 Urine Chloride 68.2 mmolL (110-250) L 06/19/18 19:31 Salicylates < 0.3 mg/dL (2.8-20.0) L 06/14/18 Unknown Urine Opiates Screen Presumptive negative 06/14/18 16:44 Urine Methadone Screen Presumptive negative 06/14/18 16:44 Acetaminophen < 5.0 ug/mL (10.0-30.0) L 06/14/18 Unknown Ur Barbiturates Screen Presumptive negative 06/14/18 16:44 Ur Phencyclidine Scrn Presumptive negative 06/14/18 16:44 Ur Amphetamines Screen Presumptive negative 06/14/18 16:44 U Benzodiazepines Scrn Presumptive negative 06/14/18 16:44 [place] 0.9 mmol/L (0.0-1.2) 06/17/18 06:55 Urine Cocaine Screen Presumptive negative 06/14/18 16:44 U Marijuana (THC) Screen Presumptive negative 06/14/18 16:44 Drugs of Abuse Note Disclamer 06/14/18 16:44 Plasma/Serum Alcohol < 0.01 % (0-0.07) 06/14/18 Unknown Hep Bs Antigen Non-reactive (Negative) 06/17/18 11:56 Hepatitis C Antibody Non-reactive (NonReactive) 06/17/18 11:56 HIV 1&2 Antibody Rapid Non react (Non React) 06/17/18 11:56 HIV P24 Antigen Non react (Non React) 06/17/18 11:56
--- NOTE | 2018-06-21 14:31 | Progress Note ---
Assessment and Plan Acute Renal Failure secondary to prerenal azotemia: - BMP pending today - Exact SCr baseline unknown - On D5W infusion to 50 ml/hr - HCV, HBV, HIV negative - SPEP, ARAM, ANCA, anti-GBM, complements levels pending - Avoid Nephrotoxic agents - Obtain daily weights - Renally dose medications - Renal plan d/w Dr Villareal - Continue supportive therapy Acute Encephalopathy - CT Head showed no acute intracranial findings, left mastoid sinus disease - [place] level was 0.9 on 06/17/18 - Neurology and Psych on board Sepsis: Leukocytosis: - On levaquin - As per primary team Hypernatremia - Secondary to poor oral intake - Started on pureed diet - On D5W infusion to 50 ml/hr - Labs pending today Hypertension - On amlodipine 10 mg orally once a day and PRN Hydralazine 20 mg IV every 6 hrs - Adjust regimen as needed Subjective Date of service: 06/21/18 Principal diagnosis: ARF, encephalopathy Interval history: Pt in bed, follows simple commands, no family at bedside Objective - Vital Signs Vital signs: Vital Signs - 12hr 06/21/18 06/21/18 06/21/18 04:14 07:29 09:46 Temperature 98.0 F 98.0 F Pulse Rate 60 60 Respiratory 18 20 Rate Blood Pressure 177/74 173/89 160/80 O2 Sat by Pulse 94 98 Oximetry 06/21/18 06/21/18 10:00 11:09 Temperature 97.9 F Pulse Rate 60 60 Respiratory 20 Rate Blood Pressure 139/53 O2 Sat by Pulse 93 Oximetry - General Appearance General appearance: other (awake, no acute distress) EENT: ATNC Neck: no JVD Respiratory: Present: Decreased Breath Sounds (unlabored) Cardiology: regular, S1S2 Gastrointestinal: normoactive bowel sounds, no tenderness Integumentary: warm and dry Neurologic: alert and oriented x3 Musculoskeletal: other (no edema to both lower extremities) Psychiatric: cooperative - Lab 06/21/18 06:19 06/20/18 06:18 Most recent lab results Calcium 9.0 mg/dL (8.4-10.2) 06/20/18 06:18 Phosphorus 2.60 mg/dL (2.5-4.5) 06/20/18 06:18 Urine Creatinine 129.8 mg/dL (0.1-20.0) H 06/19/18 19:31 Urine Sodium 77 mmol/L 06/19/18 19:31
[2018-06-21] MEDS: LEVAQUIN 250MG/50ML 250 MG/50 ML BAG IV SCH (14:53)
[2018-06-21] MEDS: APRESOLINE IV PRN (21:44)
[2018-06-22 07:30] LABS: Basophils % (Auto) 0.5 % (0.0-1.8); Eosinophils # (Auto) 0.2 K/mm3 (0.0-0.4); Hematocrit 45.6 % (35.5-45.6); Hemoglobin 15.1 gm/dl (11.8-15.2); Lymphocytes # (Auto) 1.3 K/mm3 (1.2-5.4); Lymphocytes % (Auto) 14.6 % (13.4-35.0); Mean Corpuscular HGB Conc 33 % (32-34); Mean Corpuscular Hemoglobin 30 pg (28-32); Mean Corpuscular Volume 90 fl (84-94); Monocytes # (Auto) 1.1 K/mm3 (0.0-0.8); Monocytes % (Auto) 12.1 % (0.0-7.3); Platelet Count 162 K/mm3 (140-440); Red Blood Count 5.07 M/mm3 (3.65-5.03); Red Cell Distribution Width 15.4 % (13.2-15.2)
[2018-06-22 07:50] LABS: BUN/Creatinine Ratio 16; Blood Urea Nitrogen 16 mg/dL (9-20); Calcium 8.7 mg/dL (8.4-10.2); Hemolysis Index 23
[2018-06-22] MEDS ORDERED: K-DUR PO NR (08:00)
--- NOTE | 2018-06-22 10:47 | Progress Note ---
Subjective - Reason for Consult Consult date: 06/22/18 Reason for consult: Psychiatry Follow-up - Chief Complaint Chief complaint: "Hello" 83 year old white male who presents to the emergency room with altered mental status. Today the patient is calm and cooperative during the assessment. His speech is improving. He was able to tell me that he didn't sleep well last night. Per his assigned nurse, the patient had to be put back in restraints when she started her shift. The patient denies SI/HI's and AVH's. Mental Status Exam - Vital signs Last Vital Signs Temp 98.6 F 06/22/18 09:13 Pulse 78 06/22/18 06:12 Resp 16 06/22/18 09:13 BP 164/74 06/22/18 09:13 Pulse Ox 95 06/22/18 06:12 - Exam Narrative exam: MSE: Appearance: calm, cooperative Behavior: regular eye contact Speech: speech is improving Mood: "okay" Affect: congruent to mood Thought Process: circumstantial Thought Content: denies SI/HI's and AVH's Motor Activity: sitting up in bed Cognition: A/O x 3 Insight: variable Judgment: variable Assessment and Plan Impression: Hx of Bipolar DO per the patient and his sister Keiry Medley. Today the patient is calm and cooperative during the assessment. NA 144. The patient is in restraints. Neuro is following. Medical: Acute Encephalopathy. 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 No acute intracranial process noted. No change. Persistent left mastoiditis. Recommendation/Plan: Will continue to monitor the patient's mental status. Acute rehab vs SNF when discharged. Start Trazodone 50 mg PO HS for sleep. Discussed possible suicidality/medication induced darlin/priapism with patient reference Trazodone. Recommend Delirium Precautions below: 1. Frequently reorient patient and involve him/her in their care (simple explanations of procedures, tests, medications). 2. Lights on and shades open during daytime hours. 3. Write date and goals of care in a visible place. 4. Try to avoid unnecessary interruptions to sleep during nighttime hours. 5. Obtain glasses, hearing aids from home if patient uses these at baseline. 6. Avoid medications that may exacerbate delirium (especially narcotics, benzodiazepines, barbiturates, ambien, lunesta, and medications with excessive anticholinergic properties). 7. Recommend Haldol 2 mg Q6hrs PRN PO/IM for acute agitation.
[2018-06-22] MEDS: SODIUM CHLORIDE FLUSH SYRINGE 10 ML IV SCH ×2 (10:53→21:46)
[2018-06-22] MEDS: NORVASC PO SCH (10:53)
--- NOTE | 2018-06-22 11:56 | Progress Note ---
Assessment and Plan Acute Renal Failure secondary to prerenal azotemia: - resolved - Avoid Nephrotoxic agents - Obtain daily weights - Renally dose medications Acute Encephalopathy - CT Head showed no acute intracranial findings, left mastoid sinus disease - [place] level was 0.9 on 06/17/18 - Neurology and Psych on board Sepsis: Leukocytosis: - On levaquin - As per primary team Hypernatremia - Secondary to poor oral intake - On D5W infusion to 50 ml/hr - improving Hypertension - On amlodipine 10 mg orally once a day and PRN Hydralazine 20 mg IV every 6 hrs Subjective Date of service: 06/22/18 Principal diagnosis: ARF, encephalopathy Interval history: answers simple questions, sister at bedside, all questions answered Objective - Vital Signs Vital signs: Vital Signs - 12hr 06/22/18 06/22/18 06/22/18 01:03 05:22 06:12 Temperature 97.9 F 98.9 F Pulse Rate 58 L 69 78 Respiratory 18 18 Rate Blood Pressure 137/81 Blood Pressure 154/64 137/81 [Left] O2 Sat by Pulse 94 95 95 Oximetry 06/22/18 06/22/18 09:13 10:53 Temperature 98.6 F Pulse Rate Respiratory 16 Rate Blood Pressure 164/74 164/94 Blood Pressure [Left] O2 Sat by Pulse Oximetry - General Appearance General appearance: well-developed, well-nourished EENT: ATNC, PERRL, mucous membranes dry Neck: no JVD, no carotid bruit Respiratory: Present: Clear to Ascultation. Absent: [place], [place] Cardiology: regular, S1S2 Gastrointestinal: normoactive bowel sounds, no tenderness, no distended Integumentary: no rash, warm and dry Neurologic: other (does not follow commands) Musculoskeletal: other (no swellingin BLE) Psychiatric: other (answer simple questions) - Lab 06/22/18 06:57 06/22/18 06:57 Most recent lab results Calcium 8.7 mg/dL (8.4-10.2) 06/22/18 06:57 Phosphorus 2.90 mg/dL (2.5-4.5) 06/22/18 06:57 Urine Creatinine 129.8 mg/dL (0.1-20.0) H 06/19/18 19:31 Urine Sodium 77 mmol/L 06/19/18 19:31
--- NOTE | 2018-06-22 13:14 | Progress Note ---
Assessment and Plan Assessment and plan: Mr. Lobo is 83 yo man with a history of schizophrenia and prior etoh abuse who pw AMS by EMS. Collorateral history from sister Deonna Richard. It appears pt has a history of alcohol abuse but He doesn't drink alcohol now (participates in AA) and has dedicated his life to helping other fight alcohol addiction. According to Deonna : He lives alone, totally independent, taking care of all ADLs, chores, driving , participates in AA, manages own affairs. Deonna went out of town but called him on and he did not answer. She tried several more times with no success; therefore, she called EMS to go to the house for a well-check. He was found on the bathroom floor lethargic and not responding. We really don't know how long he was on the floor or Why he fell? Pt was found to have undifferentiated encephalopathy, acute renal failure and mild lithium toxicity. 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 SIRS without infection found on admission, negative cxr and ua [place] toxicity resolved, repeat levels were normal h/o schizophrenia: Psych is following Hypernatremia: Renal is following, d5 1/2NS DVT prophylaxis: SCD to BLE while in bed. Advance care planning: full code Disposition: continue inpatient care, awaiting placement, d/w case management No MRI due to PPM, so repeated CT head and it showed a new lacunar right caudate nucleus infarct, see below: * 06/14/18 CT head w/o contrast IMPRESSION: 1. No acute intracranial findings. 2. Left mastoid sinus disease. 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 No acute intracranial process noted. No change. Persistent left mastoiditis. History Interval history: Patient was seen and examined. Follow-up on current diagnosis of AMS which is resolving. Overnight uneventful. Imaging, nursing note, chart, labs and old chart reviewed. Sisters Deonna and Keiry at bedside. Hospitalist Physical - Physical exam Narrative exam: GEN: WDWN, NAD, Awake, Alert, confused, orientated x 2 now HEENT: NCAT, EOMI, PERRL, OP Clear NECK: supple, no adenopathy, no thyromegaly, no JVD CVS/HEART: RRR, normal S1S2, pulses present bilaterally CHEST/LUNGS: CTA B, Symmetrical chest expansion, good air entry bilaterally GI/Abdomen: soft, NTND, good bowel sounds, no guarding or rebound /Bladder: no suprapubic tenderness, no CVA or paraspinal tenderness EXT/Skin: no c/c/e, no obvious rash MSK: FROM x 4, right sided weaker than left; right msk 3/5 vs left 4/5 msk strength Neuro: CN 2-12 grossly intact, follow commands, dysarthric Psych: calm - Constitutional Vitals: Temp Pulse Resp BP Pulse Ox 98.6 F 78 16 164/94 95 06/22/18 09:13 06/22/18 06:12 06/22/18 09:13 06/22/18 10:53 06/22/18 06:12 General appearance: Present: well-nourished, other (restraint) Results - Labs CBC & Chem 7: 06/22/18 06:57 06/22/18 06:57 Labs: Laboratory Last Values WBC 8.9 K/mm3 (4.5-11.0) 06/22/18 06:57 RBC 5.07 M/mm3 (3.65-5.03) H 06/22/18 06:57 Hgb 15.1 gm/dl (11.8-15.2) 06/22/18 06:57 Hct 45.6 % (35.5-45.6) 06/22/18 06:57 MCV 90 fl (84-94) 06/22/18 06:57 MCH 30 pg (28-32) 06/22/18 06:57 MCHC 33 % (32-34) 06/22/18 06:57 RDW 15.4 % (13.2-15.2) H 06/22/18 06:57 Plt Count 162 K/mm3 (140-440) 06/22/18 06:57 Lymph % (Auto) 14.6 % (13.4-35.0) 06/22/18 06:57 [place] % (Auto) 12.1 % (0.0-7.3) H 06/22/18 06:57 Eos % (Auto) 2.0 % (0.0-4.3) 06/22/18 06:57 Baso % (Auto) 0.5 % (0.0-1.8) 06/22/18 06:57 Lymph # 1.3 K/mm3 (1.2-5.4) 06/22/18 06:57 [place] # 1.1 K/mm3 (0.0-0.8) H 06/22/18 06:57 Eos # 0.2 K/mm3 (0.0-0.4) 06/22/18 06:57 Baso # 0.0 K/mm3 (0.0-0.1) 06/22/18 06:57 Seg Neutrophils % 70.8 % (40.0-70.0) H 06/22/18 06:57 Seg Neutrophils # 6.3 K/mm3 (1.8-7.7) 06/22/18 06:57 Sodium 144 mmol/L (137-145) 06/22/18 06:57 Potassium 3.4 mmol/L (3.6-5.0) L 06/22/18 06:57 Chloride 107.0 mmol/L (98-107) 06/22/18 06:57 Carbon Dioxide 22 mmol/L (22-30) 06/22/18 06:57 Anion Gap 18 mmol/L 06/22/18 06:57 BUN 16 mg/dL (9-20) 06/22/18 06:57 Creatinine 1.0 mg/dL (0.8-1.5) 06/22/18 06:57 Estimated GFR > 60 ml/min 06/22/18 06:57 BUN/Creatinine Ratio 16 % 06/22/18 06:57 Glucose 117 mg/dL (75-100) H 06/22/18 06:57 POC Glucose 126 (70-105) H 06/22/18 12:01 Lactic Acid 1.20 mmol/L (0.7-2.0) 06/15/18 13:38 Calcium 8.7 mg/dL (8.4-10.2) 06/22/18 06:57 Phosphorus 2.90 mg/dL (2.5-4.5) 06/22/18 06:57 Total Bilirubin 0.80 mg/dL (0.1-1.2) 06/14/18 Unknown AST 51 units/L (5-40) H 06/14/18 Unknown ALT 24 units/L (7-56) 06/14/18 Unknown Alkaline Phosphatase 110 units/L (35-129) 06/14/18 Unknown Ammonia 44.0 umol/L (25-60) 06/17/18 18:16 Troponin T 0.036 ng/mL (0.00-0.029) H 06/14/18 Unknown Total Protein 8.3 g/dL (6.3-8.2) H 06/14/18 Unknown Albumin 5.0 g/dL (3.9-5) 06/14/18 Unknown Albumin/Globulin Ratio 1.5 % 06/14/18 Unknown Triglycerides 156 mg/dL (2-149) H 06/14/18 Unknown Cholesterol 73 mg/dL (50-199) 06/14/18 Unknown LDL Cholesterol Direct 17 mg/dL (50-130) L 06/14/18 Unknown HDL Cholesterol 33 mg/dL (40-59) L 06/14/18 Unknown Cholesterol/HDL Ratio 2.21 % 06/14/18 Unknown TSH 1.910 mlU/mL (0.270-4.200) 06/17/18 18:16 Free T4 1.14 ng/dL (0.76-1.46) 06/17/18 18:16 Urine Color Yellow (Yellow) 06/14/18 16:44 Urine Turbidity Clear (Clear) 06/14/18 16:44 Urine pH 5.0 (5.0-7.0) 06/14/18 16:44 Ur Specific [place] 1.020 (1.003-1.030) 06/14/18 16:44 Urine Protein 100 mg/dl mg/dL (Negative) 06/14/18 16:44 Urine Glucose (UA) 50 mg/dL (Negative) 06/14/18 16:44 Urine Ketones Tr mg/dL (Negative) 06/14/18 16:44 Urine Blood Lg (Negative) 06/14/18 16:44 Urine Nitrite Neg (Negative) 06/14/18 16:44 Urine Bilirubin Neg (Negative) 06/14/18 16:44 Urine Urobilinogen < 2.0 mg/dL (<2.0) 06/14/18 16:44 Ur Leukocyte Esterase Neg (Negative) 06/14/18 16:44 Urine WBC (Auto) 6.0 /HPF (0.0-6.0) 06/14/18 16:44 Urine RBC (Auto) 2.0 /HPF (0.0-6.0) 06/14/18 16:44 U Epithel Cells (Auto) < 1.0 /HPF (0-13.0) 06/14/18 16:44 Urine Bacteria (Auto) 1+ /HPF (Negative) 06/14/18 16:44 Urine WBC Clumps Few /HPF 06/14/18 16:44 Hyaline Casts 1 /LPF 06/14/18 16:44 Granular Casts 3 /LPF 06/14/18 16:44 Urine Mucus Few /HPF 06/14/18 16:44 Urine Osmolality 690 Mosm/kg 06/19/18 19:31 Urine Creatinine 129.8 mg/dL (0.1-20.0) H 06/19/18 19:31 Urine Sodium 77 mmol/L 06/19/18 19:31 Urine Chloride 68.2 mmolL (110-250) L 06/19/18 19:31 Salicylates < 0.3 mg/dL (2.8-20.0) L 06/14/18 Unknown Urine Opiates Screen Presumptive negative 06/14/18 16:44 Urine Methadone Screen Presumptive negative 06/14/18 16:44 Acetaminophen < 5.0 ug/mL (10.0-30.0) L 06/14/18 Unknown Ur Barbiturates Screen Presumptive negative 06/14/18 16:44 Ur Phencyclidine Scrn Presumptive negative 06/14/18 16:44 Ur Amphetamines Screen Presumptive negative 06/14/18 16:44 U Benzodiazepines Scrn Presumptive negative 06/14/18 16:44 [place] 0.2 mmol/L (0.0-1.2) 06/22/18 11:00 Urine Cocaine Screen Presumptive negative 06/14/18 16:44 U Marijuana (THC) Screen Presumptive negative 06/14/18 16:44 Drugs of Abuse Note Disclamer 06/14/18 16:44 Plasma/Serum Alcohol < 0.01 % (0-0.07) 06/14/18 Unknown Hep Bs Antigen Non-reactive (Negative) 06/17/18 11:56 Hepatitis C Antibody Non-reactive (NonReactive) 06/17/18 11:56 HIV 1&2 Antibody Rapid Non react (Non React) 06/17/18 11:56 HIV P24 Antigen Non react (Non React) 06/17/18 11:56
[2018-06-22] MEDS: DESYREL PO SCH (21:46)
[2018-06-22] MEDS: APRESOLINE IV PRN (23:47)
[2018-06-23] MEDS: LEVAQUIN 250MG/50ML 250 MG/50 ML BAG IV SCH (00:03)
[2018-06-23 08:13] LABS: Basophils % (Auto) 0.4 % (0.0-1.8); Eosinophils # (Auto) 0.1 K/mm3 (0.0-0.4); Eosinophils % (Auto) 1.6 % (0.0-4.3); Hematocrit 47.5 % (35.5-45.6); Hemoglobin 15.6 gm/dl (11.8-15.2); Lymphocytes # (Auto) 1.5 K/mm3 (1.2-5.4); Lymphocytes % (Auto) 17.5 % (13.4-35.0); Mean Corpuscular HGB Conc 33 % (32-34); Mean Corpuscular Hemoglobin 30 pg (28-32); Mean Corpuscular Volume 90 fl (84-94); Monocytes # (Auto) 1.1 K/mm3 (0.0-0.8); Monocytes % (Auto) 12.9 % (0.0-7.3); Platelet Count 164 K/mm3 (140-440); Red Blood Count 5.28 M/mm3 (3.65-5.03); Red Cell Distribution Width 15.2 % (13.2-15.2)
[2018-06-23 09:13] LABS: BUN/Creatinine Ratio 16; Blood Urea Nitrogen 16 mg/dL (9-20); Calcium 8.8 mg/dL (8.4-10.2); Hemolysis Index 10
[2018-06-23] MEDS: SODIUM CHLORIDE FLUSH SYRINGE 10 ML IV SCH ×2 (10:39→22:27)
[2018-06-23] MEDS: NORVASC PO SCH (10:39)
--- NOTE | 2018-06-23 10:52 | Progress Note ---
Subjective - Reason for Consult Consult date: 06/23/18 Reason for consult: Psychiatry Follow-up - Chief Complaint Chief complaint: "How are you" 83 year old white male who presents to the emergency room with altered mental status. Today the patient is calm and cooperative during the assessment. His speech is improving. He stated that he slept more hours last night. He was able to follow most command when asked. He needed assistance with his answer when asked about his current location. He denies SI/HI's and AVH's. Mental Status Exam - Vital signs Last Vital Signs Temp 97.6 F 06/23/18 08:00 Pulse 88 06/23/18 10:39 Resp 20 06/23/18 07:32 BP 156/79 06/23/18 10:39 Pulse Ox 95 06/23/18 07:32 - Exam Narrative exam: MSE: Appearance: calm, cooperative Behavior: regular eye contact Speech: speech is improving Mood: "okay" Affect: congruent to mood Thought Process: circumstantial Thought Content: denies SI/HI's and AVH's Motor Activity: sitting up in bed Cognition: A/O x 2, with slight confusion Insight: variable Judgment: variable Assessment and Plan Impression: Hx of Bipolar DO per the patient and his sister Keiry Medley. Today the patient is calm and cooperative during the assessment. NA 144. The patient mental status is improving. The patient is in restraints. Neuro is following. Medical: Acute Encephalopathy. 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 No acute intracranial process noted. No change. Persistent left mastoiditis. Recommendation/Plan: Will continue to monitor the patient's mental status. Acute rehab vs SNF when discharged. Recommend Delirium Precautions below: 1. Frequently reorient patient and involve him/her in their care (simple explanations of procedures, tests, medications). 2. Lights on and shades open during daytime hours. 3. Write date and goals of care in a visible place. 4. Try to avoid unnecessary interruptions to sleep during nighttime hours. 5. Obtain glasses, hearing aids from home if patient uses these at baseline. 6. Avoid medications that may exacerbate delirium (especially narcotics, benzodiazepines, barbiturates, ambien, lunesta, and medications with excessive anticholinergic properties). 7. Recommend Haldol 2 mg Q6hrs PRN PO/IM for acute agitation. 8. D/C restraints when not indicated.
--- NOTE | 2018-06-23 12:10 | Progress Note ---
Assessment and Plan Acute Renal Failure secondary to prerenal azotemia: - Renal function reviewed, SCr level was 1.0 today, yesterday's SCr level was 1.0 - Exact SCr baseline unknown - On D5W infusion at 50 ml/hr - HCV, HBV, HIV negative - SPEP, ARAM, ANCA, anti-GBM, complements levels pending - Avoid Nephrotoxic agents - Obtain daily weights - Renally dose medications - Renal plan d/w Dr Villareal - Continue supportive therapy Acute Encephalopathy - CT Head showed no acute intracranial findings, left mastoid sinus disease - [place] level was 0.9 on 06/17/18 - Neurology and Psych on board Sepsis: Leukocytosis: - S/p levaquin - As per primary team Hypernatremia: - Improved - Secondary to poor oral intake - On D5W infusion to 50 ml/hr Hypertension - On amlodipine 10 mg orally once a day and PRN Hydralazine 20 mg IV every 6 hrs - Adjust regimen as needed Hypokalemia: - Replete Subjective Date of service: 06/23/18 Principal diagnosis: ARF, encephalopathy Interval history: Pt in bed, follows simple commands, no family at bedside Objective - Vital Signs Vital signs: Vital Signs - 12hr 06/23/18 06/23/18 06/23/18 07:32 08:00 10:00 Temperature 97.6 F Pulse Rate 88 Pulse Rate [ 64 Apical] Pulse Rate [ 73 From Monitor] Respiratory 20 20 Rate Blood Pressure 156/79 O2 Sat by Pulse 95 95 Oximetry 06/23/18 10:39 Temperature Pulse Rate 88 Pulse Rate [ Apical] Pulse Rate [ From Monitor] Respiratory Rate Blood Pressure 156/79 O2 Sat by Pulse Oximetry - General Appearance General appearance: other (awake, oriented to person, place, but not time, confused at times) EENT: ATNC Neck: no JVD Respiratory: Present: Decreased Breath Sounds Cardiology: regular, S1S2 Gastrointestinal: normoactive bowel sounds, no tenderness Integumentary: warm and dry Neurologic: other (awake, confused at times, oriented to person, place, but not time, follows simple commands, restraints in place) Musculoskeletal: other (no edema to both lower extremities) Psychiatric: cooperative - Lab 06/23/18 07:25 06/23/18 07:25 Most recent lab results Calcium 8.8 mg/dL (8.4-10.2) 06/23/18 07:25 Phosphorus 2.90 mg/dL (2.5-4.5) 06/22/18 06:57 Urine Creatinine 129.8 mg/dL (0.1-20.0) H 06/19/18 19:31 Urine Sodium 77 mmol/L 06/19/18 19:31
--- NOTE | 2018-06-23 14:08 | Progress Note ---
Assessment and Plan Assessment and plan: Mr. Lobo is 83 yo man with a history of schizophrenia and prior etoh abuse who pw AMS by EMS. Collateral history from sister Deonna Richard. It appears pt has a history of alcohol abuse but He doesn't drink alcohol now (participates in AA) and has dedicated his life to helping other fight alcohol addiction. According to Deonna : He lives alone, totally independent, taking care of all ADLs, chores, driving , participates in AA, manages own affairs. Deonna went out of town but called him on and he did not answer. She tried several more times with no success; therefore, she called EMS to go to the house for a well-check. He was found on the bathroom floor lethargic and not responding. We really don't know how long he was on the floor or Why he fell? Pt was found to have undifferentiated encephalopathy, acute renal failure and mild lithium toxicity. 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 SIRS without infection found on admission, negative cxr and ua [place] toxicity resolved, repeat levels were normal h/o schizophrenia: Psych is following Hypernatremia: Renal is following, Hypokalemia: replace DVT prophylaxis: SCD to BLE while in bed. Advance care planning: full code Disposition: continue inpatient care, awaiting placement, d/w case management No MRI due to PPM, so repeated CT head and it showed a new lacunar right caudate nucleus infarct, see below: * 06/14/18 CT head w/o contrast IMPRESSION: 1. No acute intracranial findings. 2. Left mastoid sinus disease. 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 No acute intracranial process noted. No change. Persistent left mastoiditis. History Interval history: Patient was seen and examined. Follow-up on current diagnosis of AMS which is resolving. Overnight uneventful. Imaging, nursing note, chart, labs and old chart reviewed. Sisters Deonna and Keiry at bedside. Hospitalist Physical - Physical exam Narrative exam: GEN: WDWN, NAD, Awake, Alert, confused, orientated x 2 now HEENT: NCAT, EOMI, PERRL, OP Clear NECK: supple, no adenopathy, no thyromegaly, no JVD CVS/HEART: RRR, normal S1S2, pulses present bilaterally CHEST/LUNGS: CTA B, Symmetrical chest expansion, good air entry bilaterally GI/Abdomen: soft, NTND, good bowel sounds, no guarding or rebound /Bladder: no suprapubic tenderness, no CVA or paraspinal tenderness EXT/Skin: no c/c/e, no obvious rash MSK: FROM x 4, right sided weaker than left; right msk 3/5 vs left 4/5 msk strength Neuro: CN 2-12 grossly intact, follow commands, dysarthric Psych: calm - Constitutional Vitals: Temp Pulse Resp BP Pulse Ox 97.9 F 60 20 144/63 94 06/23/18 11:03 06/23/18 11:03 06/23/18 11:03 06/23/18 11:03 06/23/18 11:03 General appearance: Present: well-nourished, other (restraint) Results - Labs CBC & Chem 7: 06/23/18 07:25 06/23/18 07:25 Labs: Laboratory Last Values WBC 8.5 K/mm3 (4.5-11.0) 06/23/18 07:25 RBC 5.28 M/mm3 (3.65-5.03) H 06/23/18 07:25 Hgb 15.6 gm/dl (11.8-15.2) H 06/23/18 07:25 Hct 47.5 % (35.5-45.6) H 06/23/18 07:25 MCV 90 fl (84-94) 06/23/18 07:25 MCH 30 pg (28-32) 06/23/18 07:25 MCHC 33 % (32-34) 06/23/18 07:25 RDW 15.2 % (13.2-15.2) 06/23/18 07:25 Plt Count 164 K/mm3 (140-440) 06/23/18 07:25 Lymph % (Auto) 17.5 % (13.4-35.0) 06/23/18 07:25 [place] % (Auto) 12.9 % (0.0-7.3) H 06/23/18 07:25 Eos % (Auto) 1.6 % (0.0-4.3) 06/23/18 07:25 Baso % (Auto) 0.4 % (0.0-1.8) 06/23/18 07:25 Lymph # 1.5 K/mm3 (1.2-5.4) 06/23/18 07:25 [place] # 1.1 K/mm3 (0.0-0.8) H 06/23/18 07:25 Eos # 0.1 K/mm3 (0.0-0.4) 06/23/18 07:25 Baso # 0.0 K/mm3 (0.0-0.1) 06/23/18 07:25 Seg Neutrophils % 67.6 % (40.0-70.0) 06/23/18 07:25 Seg Neutrophils # 5.7 K/mm3 (1.8-7.7) 06/23/18 07:25 Sodium 144 mmol/L (137-145) 06/23/18 07:25 Potassium 3.2 mmol/L (3.6-5.0) L 06/23/18 07:25 Chloride 103.8 mmol/L (98-107) 06/23/18 07:25 Carbon Dioxide 23 mmol/L (22-30) 06/23/18 07:25 Anion Gap 20 mmol/L 06/23/18 07:25 BUN 16 mg/dL (9-20) 06/23/18 07:25 Creatinine 1.0 mg/dL (0.8-1.5) 06/23/18 07:25 Estimated GFR > 60 ml/min 06/23/18 07:25 BUN/Creatinine Ratio 16 % 06/23/18 07:25 Glucose 106 mg/dL (75-100) H 06/23/18 07:25 POC Glucose 106 (70-105) H 06/23/18 05:18 Lactic Acid 1.20 mmol/L (0.7-2.0) 06/15/18 13:38 Calcium 8.8 mg/dL (8.4-10.2) 06/23/18 07:25 Phosphorus 2.90 mg/dL (2.5-4.5) 06/22/18 06:57 Total Bilirubin 0.80 mg/dL (0.1-1.2) 06/14/18 Unknown AST 51 units/L (5-40) H 06/14/18 Unknown ALT 24 units/L (7-56) 06/14/18 Unknown Alkaline Phosphatase 110 units/L (35-129) 06/14/18 Unknown Ammonia 44.0 umol/L (25-60) 06/17/18 18:16 Troponin T 0.036 ng/mL (0.00-0.029) H 06/14/18 Unknown Serum Total Protein See scanned report 06/17/18 11:56 Total Protein 8.3 g/dL (6.3-8.2) H 06/14/18 Unknown Albumin See scanned report 06/17/18 11:56 Albumin/Globulin Ratio 1.5 % 06/14/18 Unknown [id number] See scanned report 06/17/18 11:56 [id number] See scanned report 06/17/18 11:56 Beta Globulins See scanned report 06/17/18 11:56 Gamma Globulins See scanned report 06/17/18 11:56 Abnorm Protein Band 1 See scanned report 06/17/18 11:56 Abnorm Protein Band 2 See scanned report 06/17/18 11:56 Abnorm Protein Band 3 See scanned report 06/17/18 11:56 PEP Interpretation See scanned report 06/17/18 11:56 Triglycerides 156 mg/dL (2-149) H 06/14/18 Unknown Cholesterol 73 mg/dL (50-199) 06/14/18 Unknown LDL Cholesterol Direct 17 mg/dL (50-130) L 06/14/18 Unknown HDL Cholesterol 33 mg/dL (40-59) L 06/14/18 Unknown Cholesterol/HDL Ratio 2.21 % 06/14/18 Unknown TSH 1.910 mlU/mL (0.270-4.200) 06/17/18 18:16 Free T4 1.14 ng/dL (0.76-1.46) 06/17/18 18:16 Urine Color Yellow (Yellow) 06/14/18 16:44 Urine Turbidity Clear (Clear) 06/14/18 16:44 Urine pH 5.0 (5.0-7.0) 06/14/18 16:44 Ur Specific [place] 1.020 (1.003-1.030) 06/14/18 16:44 Urine Protein 100 mg/dl mg/dL (Negative) 06/14/18 16:44 Urine Glucose (UA) 50 mg/dL (Negative) 06/14/18 16:44 Urine Ketones Tr mg/dL (Negative) 06/14/18 16:44 Urine Blood Lg (Negative) 06/14/18 16:44 Urine Nitrite Neg (Negative) 06/14/18 16:44 Urine Bilirubin Neg (Negative) 06/14/18 16:44 Urine Urobilinogen < 2.0 mg/dL (<2.0) 06/14/18 16:44 Ur Leukocyte Esterase Neg (Negative) 06/14/18 16:44 Urine WBC (Auto) 6.0 /HPF (0.0-6.0) 06/14/18 16:44 Urine RBC (Auto) 2.0 /HPF (0.0-6.0) 06/14/18 16:44 U Epithel Cells (Auto) < 1.0 /HPF (0-13.0) 06/14/18 16:44 Urine Bacteria (Auto) 1+ /HPF (Negative) 06/14/18 16:44 Urine WBC Clumps Few /HPF 06/14/18 16:44 Hyaline Casts 1 /LPF 06/14/18 16:44 Granular Casts 3 /LPF 06/14/18 16:44 Urine Mucus Few /HPF 06/14/18 16:44 Urine Osmolality 690 Mosm/kg 06/19/18 19:31 Urine Creatinine 129.8 mg/dL (0.1-20.0) H 06/19/18 19:31 Urine Sodium 77 mmol/L 06/19/18 19:31 Urine Chloride 68.2 mmolL (110-250) L 06/19/18 19:31 Salicylates < 0.3 mg/dL (2.8-20.0) L 06/14/18 Unknown Urine Opiates Screen Presumptive negative 06/14/18 16:44 Urine Methadone Screen Presumptive negative 06/14/18 16:44 Acetaminophen < 5.0 ug/mL (10.0-30.0) L 06/14/18 Unknown Ur Barbiturates Screen Presumptive negative 06/14/18 16:44 Ur Phencyclidine Scrn Presumptive negative 06/14/18 16:44 Ur Amphetamines Screen Presumptive negative 06/14/18 16:44 U Benzodiazepines Scrn Presumptive negative 06/14/18 16:44 [place] 0.2 mmol/L (0.0-1.2) 06/22/18 11:00 Urine Cocaine Screen Presumptive negative 06/14/18 16:44 U Marijuana (THC) Screen Presumptive negative 06/14/18 16:44 Drugs of Abuse Note Disclamer 06/14/18 16:44 Plasma/Serum Alcohol < 0.01 % (0-0.07) 06/14/18 Unknown Hep Bs Antigen Non-reactive (Negative) 06/17/18 11:56 Hepatitis C Antibody Non-reactive (NonReactive) 06/17/18 11:56 HIV 1&2 Antibody Rapid Non react (Non React) 06/17/18 11:56 HIV P24 Antigen Non react (Non React) 06/17/18 11:56
[2018-06-23] MEDS ORDERED: KCL 10MEQ/100ML 10 MEQ/100 ML BAG IV SCH (15:00)
[2018-06-23] MEDS ORDERED: K-DUR PO ONE (15:05)
[2018-06-23] MEDS: KCL 10MEQ/100ML 10 MEQ/100 ML BAG IV SCH ×2 (15:11→16:57)
[2018-06-23] MEDS: DESYREL PO SCH (22:27)
--- NOTE | 2018-06-24 10:00 | Progress Note ---
Assessment and Plan Assessment and plan: Mr. Lobo is 83 yo man with a history of schizophrenia and prior etoh abuse who pw AMS by EMS. Collateral history from sister Deonna Richard. It appears pt has a history of alcohol abuse but He doesn't drink alcohol now (participates in AA) and has dedicated his life to helping other fight alcohol addiction. According to Deonna : He lives alone, totally independent, taking care of all ADLs, chores, driving , participates in AA, manages own affairs. Deonna went out of town but called him on and he did not answer. She tried several more times with no success; therefore, she called EMS to go to the house for a well-check. He was found on the bathroom floor lethargic and not responding. We really don't know how long he was on the floor or Why he fell? Pt was found to have undifferentiated encephalopathy, acute renal failure and mild lithium toxicity. 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 SIRS without infection found on admission, negative cxr and ua [place] toxicity resolved, repeat levels were normal h/o schizophrenia: Psych is following Hypernatremia: Renal is following, Hypokalemia: replace DVT prophylaxis: SCD to BLE while in bed. Advance care planning: full code Disposition: continue inpatient care, awaiting placement, d/w case management No MRI due to PPM, so repeated CT head and it showed a new lacunar right caudate nucleus infarct, see below: * 06/14/18 CT head w/o contrast IMPRESSION: 1. No acute intracranial findings. 2. Left mastoid sinus disease. 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 No acute intracranial process noted. No change. Persistent left mastoiditis. History Interval history: Patient was seen and examined. Follow-up on current diagnosis of AMS which is resolving. Overnight uneventful. Imaging, nursing note, chart, labs and old chart reviewed. Sisters Deonna and Keiry at bedside. Hospitalist Physical - Physical exam Narrative exam: GEN: WDWN, NAD, Awake, Alert, confused, orientated x 2 now HEENT: NCAT, EOMI, PERRL, OP Clear NECK: supple, no adenopathy, no thyromegaly, no JVD CVS/HEART: RRR, normal S1S2, pulses present bilaterally CHEST/LUNGS: CTA B, Symmetrical chest expansion, good air entry bilaterally GI/Abdomen: soft, NTND, good bowel sounds, no guarding or rebound /Bladder: no suprapubic tenderness, no CVA or paraspinal tenderness EXT/Skin: no c/c/e, no obvious rash MSK: FROM x 4, right sided weaker than left; right msk 3/5 vs left 4/5 msk strength Neuro: CN 2-12 grossly intact, follow commands, dysarthric Psych: calm - Constitutional Vitals: Temp Pulse Resp BP Pulse Ox 97.9 F 58 L 20 132/77 94 06/24/18 07:29 06/24/18 07:29 06/24/18 07:29 06/24/18 07:29 06/24/18 07:29 General appearance: Present: well-nourished, other (restraint) Results - Labs CBC & Chem 7: 06/23/18 07:25 06/23/18 07:25 Labs: Laboratory Last Values WBC 8.5 K/mm3 (4.5-11.0) 06/23/18 07:25 RBC 5.28 M/mm3 (3.65-5.03) H 06/23/18 07:25 Hgb 15.6 gm/dl (11.8-15.2) H 06/23/18 07:25 Hct 47.5 % (35.5-45.6) H 06/23/18 07:25 MCV 90 fl (84-94) 06/23/18 07:25 MCH 30 pg (28-32) 06/23/18 07:25 MCHC 33 % (32-34) 06/23/18 07:25 RDW 15.2 % (13.2-15.2) 06/23/18 07:25 Plt Count 164 K/mm3 (140-440) 06/23/18 07:25 Lymph % (Auto) 17.5 % (13.4-35.0) 06/23/18 07:25 [place] % (Auto) 12.9 % (0.0-7.3) H 06/23/18 07:25 Eos % (Auto) 1.6 % (0.0-4.3) 06/23/18 07:25 Baso % (Auto) 0.4 % (0.0-1.8) 06/23/18 07:25 Lymph # 1.5 K/mm3 (1.2-5.4) 06/23/18 07:25 [place] # 1.1 K/mm3 (0.0-0.8) H 06/23/18 07:25 Eos # 0.1 K/mm3 (0.0-0.4) 06/23/18 07:25 Baso # 0.0 K/mm3 (0.0-0.1) 06/23/18 07:25 Seg Neutrophils % 67.6 % (40.0-70.0) 06/23/18 07:25 Seg Neutrophils # 5.7 K/mm3 (1.8-7.7) 06/23/18 07:25 Sodium 144 mmol/L (137-145) 06/23/18 07:25 Potassium 3.2 mmol/L (3.6-5.0) L 06/23/18 07:25 Chloride 103.8 mmol/L (98-107) 06/23/18 07:25 Carbon Dioxide 23 mmol/L (22-30) 06/23/18 07:25 Anion Gap 20 mmol/L 06/23/18 07:25 BUN 16 mg/dL (9-20) 06/23/18 07:25 Creatinine 1.0 mg/dL (0.8-1.5) 06/23/18 07:25 Estimated GFR > 60 ml/min 06/23/18 07:25 BUN/Creatinine Ratio 16 % 06/23/18 07:25 Glucose 106 mg/dL (75-100) H 06/23/18 07:25 POC Glucose 104 (70-105) 06/24/18 06:10 Lactic Acid 1.20 mmol/L (0.7-2.0) 06/15/18 13:38 Calcium 8.8 mg/dL (8.4-10.2) 06/23/18 07:25 Phosphorus 2.90 mg/dL (2.5-4.5) 06/22/18 06:57 Total Bilirubin 0.80 mg/dL (0.1-1.2) 06/14/18 Unknown AST 51 units/L (5-40) H 06/14/18 Unknown ALT 24 units/L (7-56) 06/14/18 Unknown Alkaline Phosphatase 110 units/L (35-129) 06/14/18 Unknown Ammonia 44.0 umol/L (25-60) 06/17/18 18:16 Troponin T 0.036 ng/mL (0.00-0.029) H 06/14/18 Unknown Serum Total Protein See scanned report 06/17/18 11:56 Total Protein 8.3 g/dL (6.3-8.2) H 06/14/18 Unknown Albumin See scanned report 06/17/18 11:56 Albumin/Globulin Ratio 1.5 % 06/14/18 Unknown [id number] See scanned report 06/17/18 11:56 [id number]-[id number] See scanned report 06/17/18 11:56 Beta Globulins See scanned report 06/17/18 11:56 Gamma Globulins See scanned report 06/17/18 11:56 Abnorm Protein Band 1 See scanned report 06/17/18 11:56 Abnorm Protein Band 2 See scanned report 06/17/18 11:56 Abnorm Protein Band 3 See scanned report 06/17/18 11:56 PEP Interpretation See scanned report 06/17/18 11:56 Triglycerides 156 mg/dL (2-149) H 06/14/18 Unknown Cholesterol 73 mg/dL (50-199) 06/14/18 Unknown LDL Cholesterol Direct 17 mg/dL (50-130) L 06/14/18 Unknown HDL Cholesterol 33 mg/dL (40-59) L 06/14/18 Unknown Cholesterol/HDL Ratio 2.21 % 06/14/18 Unknown TSH 1.910 mlU/mL (0.270-4.200) 06/17/18 18:16 Free T4 1.14 ng/dL (0.76-1.46) 06/17/18 18:16 Urine Color Yellow (Yellow) 06/14/18 16:44 Urine Turbidity Clear (Clear) 06/14/18 16:44 Urine pH 5.0 (5.0-7.0) 06/14/18 16:44 Ur Specific [place] 1.020 (1.003-1.030) 06/14/18 16:44 Urine Protein 100 mg/dl mg/dL (Negative) 06/14/18 16:44 Urine Glucose (UA) 50 mg/dL (Negative) 06/14/18 16:44 Urine Ketones Tr mg/dL (Negative) 06/14/18 16:44 Urine Blood Lg (Negative) 06/14/18 16:44 Urine Nitrite Neg (Negative) 06/14/18 16:44 Urine Bilirubin Neg (Negative) 06/14/18 16:44 Urine Urobilinogen < 2.0 mg/dL (<2.0) 06/14/18 16:44 Ur Leukocyte Esterase Neg (Negative) 06/14/18 16:44 Urine WBC (Auto) 6.0 /HPF (0.0-6.0) 06/14/18 16:44 Urine RBC (Auto) 2.0 /HPF (0.0-6.0) 06/14/18 16:44 U Epithel Cells (Auto) < 1.0 /HPF (0-13.0) 06/14/18 16:44 Urine Bacteria (Auto) 1+ /HPF (Negative) 06/14/18 16:44 Urine WBC Clumps Few /HPF 06/14/18 16:44 Hyaline Casts 1 /LPF 06/14/18 16:44 Granular Casts 3 /LPF 06/14/18 16:44 Urine Mucus Few /HPF 06/14/18 16:44 Urine Osmolality 690 Mosm/kg 06/19/18 19:31 Urine Creatinine 129.8 mg/dL (0.1-20.0) H 06/19/18 19:31 Urine Sodium 77 mmol/L 06/19/18 19:31 Urine Chloride 68.2 mmolL (110-250) L 06/19/18 19:31 Salicylates < 0.3 mg/dL (2.8-20.0) L 06/14/18 Unknown Urine Opiates Screen Presumptive negative 06/14/18 16:44 Urine Methadone Screen Presumptive negative 06/14/18 16:44 Acetaminophen < 5.0 ug/mL (10.0-30.0) L 06/14/18 Unknown Ur Barbiturates Screen Presumptive negative 06/14/18 16:44 Ur Phencyclidine Scrn Presumptive negative 06/14/18 16:44 Ur Amphetamines Screen Presumptive negative 06/14/18 16:44 U Benzodiazepines Scrn Presumptive negative 06/14/18 16:44 [place] 0.2 mmol/L (0.0-1.2) 06/22/18 11:00 Urine Cocaine Screen Presumptive negative 06/14/18 16:44 U Marijuana (THC) Screen Presumptive negative 06/14/18 16:44 Drugs of Abuse Note Disclamer 06/14/18 16:44 Plasma/Serum Alcohol < 0.01 % (0-0.07) 06/14/18 Unknown ARAM Screen See scanned report 06/17/18 11:56 Proteinase 3 (PR3) Ab See scanned report 06/17/18 11:56 Myeloperoxidase Ab See scanned report 06/17/18 11:56 Glomerular Base Mem IgG See scanned report 06/17/18 11:56 Complement C3 See scanned report 06/17/18 11:56 Complement C4 See scanned report 06/17/18 11:56 Tot Complement (CH50) See scanned report 06/17/18 11:56 Hep Bs Antigen Non-reactive (Negative) 06/17/18 11:56 Hepatitis C Antibody Non-reactive (NonReactive) 06/17/18 11:56 HIV 1&2 Antibody Rapid Non react (Non React) 06/17/18 11:56 HIV P24 Antigen Non react (Non React) 06/17/18 11:56
[2018-06-24 10:18] LABS: ANA Screen, IFA Negative (Negative); Albumin 3.3 g/dL (3.8-4.8); Gamma Globulin 0.8 g/dL (0.8-1.7); Myeloperoxidase Antibody <1.0 AI (<1.0)
[2018-06-24] MEDS: NORVASC PO SCH (11:20)
[2018-06-24] MEDS: SODIUM CHLORIDE FLUSH SYRINGE 10 ML IV SCH ×2 (11:20→23:08)
--- NOTE | 2018-06-24 15:09 | Progress Note ---
Assessment and Plan Acute Renal Failure secondary to Prerenal Azotemia: - Renal function reviewed. Serum creatinine normalized - No new labs noted for today - Urine lytes showed proteinuria - ARAM, ANCA, anti-GBM, C3, C4- negative - HIV, HCV and Hep B- negative - Avoid Nephrotoxic agents - Strict I&O monitoring - Obtain daily weights - Renally dose medications - Awaiting placement to rehab per Case Management - Will sign off, please reconsult if need us Metabolic encephalopathy: - CT head was negative - [place] level 0.2 on 06/22/18 - As per Neurology Sepsis: Leukocytosis: -S/P IV Levaquin -As per primary team Hypernatremia - Secondary to poor oral intake - Recent sodium level yesterday was 144 Hypokalemia: -Replete as needed Hypertension - On Norvasc and prn Hydralazine - Adjust regimen as needed We will sign off, please reconsult if needed Subjective Date of service: 06/24/18 Principal diagnosis: ARF, encephalopathy Interval history: Patient seen lying in bed. Awake and alert. No family at bedside. Objective - Vital Signs Vital signs: Vital Signs - 12hr 06/24/18 06/24/18 06/24/18 07:29 10:47 11:20 Temperature 97.9 F 97.9 F Pulse Rate 58 L 60 58 L Respiratory 20 20 Rate Blood Pressure 132/77 164/75 132/77 O2 Sat by Pulse 94 95 Oximetry - General Appearance General appearance: well-developed, appears stated age EENT: ATNC, PERRL, hearing intact, vision intact Neck: no JVD, supple Respiratory: Present: Clear to Ascultation Cardiology: regular, S1S2 Gastrointestinal: normoactive bowel sounds Integumentary: warm and dry Neurologic: other (awake and alert) Psychiatric: cooperative - Lab 06/23/18 07:25 06/23/18 07:25 Most recent lab results Calcium 8.8 mg/dL (8.4-10.2) 06/23/18 07:25 Phosphorus 2.90 mg/dL (2.5-4.5) 06/22/18 06:57 Urine Creatinine 129.8 mg/dL (0.1-20.0) H 06/19/18 19:31 Urine Sodium 77 mmol/L 06/19/18 19:31
[2018-06-24] MEDS: DESYREL PO SCH (23:09)
--- NOTE | 2018-06-25 09:53 | Progress Note ---
Subjective - Reason for Consult Consult date: 06/25/18 Reason for consult: Psychiatry Follow-up - Chief Complaint Chief complaint: "Hello" 83 year old white male who presents to the emergency room with altered mental status. Today the patient is calm and cooperative during the assessment. He stated that he slept "well' last night. The patient stated in previous assessments that he wasn't sleeping at night. He denies SI/HI's and AVH's. Mental Status Exam - Vital signs Last Vital Signs Temp 98.0 F 06/25/18 05:14 Pulse 60 06/25/18 05:14 Resp 20 06/25/18 05:14 BP 163/79 06/25/18 05:14 Pulse Ox 94 06/25/18 05:14 - Exam Narrative exam: MSE: Appearance: calm, cooperative Behavior: regular eye contact Speech: speech has improved Mood: "okay" Affect: congruent to mood Thought Process: circumstantial Thought Content: denies SI/HI's and AVH's Motor Activity: sitting up in bed Cognition: A/O x 3 Insight: variable Judgment: variable Assessment and Plan Impression: Hx of Bipolar DO per the patient and his sister Keiry Medley. Today the patient is calm and cooperative during the assessment. The patient is in restraints. Neuro is following. Medical: Acute Encephalopathy. 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 No acute intracranial process noted. No change. Persistent left mastoiditis. Recommendation/Plan: Will continue to monitor the patient's mental status. Acute rehab vs SNF when discharged. Continue Trazodone 50 mg PO HS for sleep. Discussed possible suicidality/medication induced darlin/priapism with patient reference Trazodone. Recommend Delirium Precautions below: 1. Frequently reorient patient and involve him/her in their care (simple explanations of procedures, tests, medications). 2. Lights on and shades open during daytime hours. 3. Write date and goals of care in a visible place. 4. Try to avoid unnecessary interruptions to sleep during nighttime hours. 5. Obtain glasses, hearing aids from home if patient uses these at baseline. 6. Avoid medications that may exacerbate delirium (especially narcotics, benzodiazepines, barbiturates, ambien, lunesta, and medications with excessive anticholinergic properties). 7. Recommend Haldol 2 mg Q6hrs PRN PO/IM for acute agitation. 8. Recommend 1:1 sitter. 9. D/C restraints when not indicated.
[2018-06-25] MEDS: NORVASC PO SCH (10:17)
[2018-06-25] MEDS: SODIUM CHLORIDE FLUSH SYRINGE 10 ML IV SCH ×2 (10:18→22:03)
[2018-06-25] MEDS ORDERED: K-DUR PO ONE (11:14)
--- NOTE | 2018-06-25 11:15 | Progress Note ---
Assessment and Plan Assessment and plan: Mr. Lobo is 83 yo man with a history of schizophrenia and prior etoh abuse who pw AMS by EMS. Collateral history from sister Deonna Richard. It appears pt has a history of alcohol abuse but He doesn't drink alcohol now (participates in AA) and has dedicated his life to helping other fight alcohol addiction. According to Deonna : He lives alone, totally independent, taking care of all ADLs, chores, driving , participates in AA, manages own affairs. Deonna went out of town but called him on and he did not answer. She tried several more times with no success; therefore, she called EMS to go to the house for a well-check. He was found on the bathroom floor lethargic and not responding. We really don't know how long he was on the floor or Why he fell? Pt was found to have undifferentiated encephalopathy, acute renal failure and mild lithium toxicity. 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 SIRS without infection found on admission, negative cxr and ua [place] toxicity resolved, repeat levels were normal h/o schizophrenia: Psych is following Hypernatremia: Renal is following, Hypokalemia: replace DVT prophylaxis: SCD to BLE while in bed. Advance care planning: full code Disposition: continue inpatient care, awaiting placement, d/w case management, Patient triggered a Level 2 No MRI due to PPM, so repeated CT head and it showed a new lacunar right caudate nucleus infarct, see below: * 06/14/18 CT head w/o contrast IMPRESSION: 1. No acute intracranial findings. 2. Left mastoid sinus disease. 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 No acute intracranial process noted. No change. Persistent left mastoiditis. History Interval history: Patient was seen and examined. Follow-up on current diagnosis of AMS which is resolving. Overnight uneventful. Imaging, nursing note, chart, labs and old chart reviewed. Hospitalist Physical - Physical exam Narrative exam: GEN: WDWN, NAD, Awake, Alert, confused, orientated x 3, year correct with hints HEENT: NCAT, EOMI, PERRL, OP Clear NECK: supple, no adenopathy, no thyromegaly, no JVD CVS/HEART: RRR, normal S1S2, pulses present bilaterally CHEST/LUNGS: CTA B, Symmetrical chest expansion, good air entry bilaterally GI/Abdomen: soft, NTND, good bowel sounds, no guarding or rebound /Bladder: no suprapubic tenderness, no CVA or paraspinal tenderness EXT/Skin: no c/c/e, no obvious rash MSK: FROM x 4, right sided weaker than left; right msk 3/5 vs left 4/5 msk strength Neuro: CN 2-12 grossly intact, follow commands, dysarthric Psych: calm - Constitutional Vitals: Temp Pulse Resp BP Pulse Ox 98.0 F 60 20 157/81 94 06/25/18 05:14 06/25/18 05:14 06/25/18 05:14 06/25/18 10:17 06/25/18 05:14 General appearance: Present: well-nourished, other (restraint) Results - Labs CBC & Chem 7: 06/23/18 07:25 06/23/18 07:25 Labs: Laboratory Last Values WBC 8.5 K/mm3 (4.5-11.0) 06/23/18 07:25 RBC 5.28 M/mm3 (3.65-5.03) H 06/23/18 07:25 Hgb 15.6 gm/dl (11.8-15.2) H 06/23/18 07:25 Hct 47.5 % (35.5-45.6) H 06/23/18 07:25 MCV 90 fl (84-94) 06/23/18 07:25 MCH 30 pg (28-32) 06/23/18 07:25 MCHC 33 % (32-34) 06/23/18 07:25 RDW 15.2 % (13.2-15.2) 06/23/18 07:25 Plt Count 164 K/mm3 (140-440) 06/23/18 07:25 Lymph % (Auto) 17.5 % (13.4-35.0) 06/23/18 07:25 [place] % (Auto) 12.9 % (0.0-7.3) H 06/23/18 07:25 Eos % (Auto) 1.6 % (0.0-4.3) 06/23/18 07:25 Baso % (Auto) 0.4 % (0.0-1.8) 06/23/18 07:25 Lymph # 1.5 K/mm3 (1.2-5.4) 06/23/18 07:25 [place] # 1.1 K/mm3 (0.0-0.8) H 06/23/18 07:25 Eos # 0.1 K/mm3 (0.0-0.4) 06/23/18 07:25 Baso # 0.0 K/mm3 (0.0-0.1) 06/23/18 07:25 Seg Neutrophils % 67.6 % (40.0-70.0) 06/23/18 07:25 Seg Neutrophils # 5.7 K/mm3 (1.8-7.7) 06/23/18 07:25 Sodium 144 mmol/L (137-145) 06/23/18 07:25 Potassium 3.2 mmol/L (3.6-5.0) L 06/23/18 07:25 Chloride 103.8 mmol/L (98-107) 06/23/18 07:25 Carbon Dioxide 23 mmol/L (22-30) 06/23/18 07:25 Anion Gap 20 mmol/L 06/23/18 07:25 BUN 16 mg/dL (9-20) 06/23/18 07:25 Creatinine 1.0 mg/dL (0.8-1.5) 06/23/18 07:25 Estimated GFR > 60 ml/min 06/23/18 07:25 BUN/Creatinine Ratio 16 % 06/23/18 07:25 Glucose 106 mg/dL (75-100) H 06/23/18 07:25 POC Glucose 99 (70-105) 06/25/18 07:42 Lactic Acid 1.20 mmol/L (0.7-2.0) 06/15/18 13:38 Calcium 8.8 mg/dL (8.4-10.2) 06/23/18 07:25 Phosphorus 2.90 mg/dL (2.5-4.5) 06/22/18 06:57 Total Bilirubin 0.80 mg/dL (0.1-1.2) 06/14/18 Unknown AST 51 units/L (5-40) H 06/14/18 Unknown ALT 24 units/L (7-56) 06/14/18 Unknown Alkaline Phosphatase 110 units/L (35-129) 06/14/18 Unknown Ammonia 44.0 umol/L (25-60) 06/17/18 18:16 Troponin T 0.036 ng/mL (0.00-0.029) H 06/14/18 Unknown Serum Total Protein 6.0 g/dL (6.1-8.1) L 06/17/18 11:56 Total Protein 8.3 g/dL (6.3-8.2) H 06/14/18 Unknown Albumin 3.3 g/dL (3.8-4.8) L 06/17/18 11:56 Albumin/Globulin Ratio 1.5 % 06/14/18 Unknown Svbsp-9-Fqfxterdi 0.3 g/dL (0.2-0.3) 06/17/18 11:56 Efljp-5-Xtnvedtyu 1.0 g/dL (0.5-0.9) H 06/17/18 11:56 Beta Globulins 0.2 g/dL (0.2-0.5) 06/17/18 11:56 Gamma Globulins 0.8 g/dL (0.8-1.7) 06/17/18 11:56 Abnorm Protein Band 1 see below 06/17/18 11:56 Abnorm Protein Band 2 (()) 06/17/18 11:56 Abnorm Protein Band 3 (()) 06/17/18 11:56 PEP Interpretation see below H 06/17/18 11:56 Triglycerides 156 mg/dL (2-149) H 06/14/18 Unknown Cholesterol 73 mg/dL (50-199) 06/14/18 Unknown LDL Cholesterol Direct 17 mg/dL (50-130) L 06/14/18 Unknown HDL Cholesterol 33 mg/dL (40-59) L 06/14/18 Unknown Cholesterol/HDL Ratio 2.21 % 06/14/18 Unknown TSH 1.910 mlU/mL (0.270-4.200) 06/17/18 18:16 Free T4 1.14 ng/dL (0.76-1.46) 06/17/18 18:16 Urine Color Yellow (Yellow) 06/14/18 16:44 Urine Turbidity Clear (Clear) 06/14/18 16:44 Urine pH 5.0 (5.0-7.0) 06/14/18 16:44 Ur Specific [place] 1.020 (1.003-1.030) 06/14/18 16:44 Urine Protein 100 mg/dl mg/dL (Negative) 06/14/18 16:44 Urine Glucose (UA) 50 mg/dL (Negative) 06/14/18 16:44 Urine Ketones Tr mg/dL (Negative) 06/14/18 16:44 Urine Blood Lg (Negative) 06/14/18 16:44 Urine Nitrite Neg (Negative) 06/14/18 16:44 Urine Bilirubin Neg (Negative) 06/14/18 16:44 Urine Urobilinogen < 2.0 mg/dL (<2.0) 06/14/18 16:44 Ur Leukocyte Esterase Neg (Negative) 06/14/18 16:44 Urine WBC (Auto) 6.0 /HPF (0.0-6.0) 06/14/18 16:44 Urine RBC (Auto) 2.0 /HPF (0.0-6.0) 06/14/18 16:44 U Epithel Cells (Auto) < 1.0 /HPF (0-13.0) 06/14/18 16:44 Urine Bacteria (Auto) 1+ /HPF (Negative) 06/14/18 16:44 Urine WBC Clumps Few /HPF 06/14/18 16:44 Hyaline Casts 1 /LPF 06/14/18 16:44 Granular Casts 3 /LPF 06/14/18 16:44 Urine Mucus Few /HPF 06/14/18 16:44 Urine Osmolality 690 Mosm/kg 06/19/18 19:31 Urine Creatinine 129.8 mg/dL (0.1-20.0) H 06/19/18 19:31 Urine Sodium 77 mmol/L 06/19/18 19:31 Urine Chloride 68.2 mmolL (110-250) L 06/19/18 19:31 Salicylates < 0.3 mg/dL (2.8-20.0) L 06/14/18 Unknown Urine Opiates Screen Presumptive negative 06/14/18 16:44 Urine Methadone Screen Presumptive negative 06/14/18 16:44 Acetaminophen < 5.0 ug/mL (10.0-30.0) L 06/14/18 Unknown Ur Barbiturates Screen Presumptive negative 06/14/18 16:44 Ur Phencyclidine Scrn Presumptive negative 06/14/18 16:44 Ur Amphetamines Screen Presumptive negative 06/14/18 16:44 U Benzodiazepines Scrn Presumptive negative 06/14/18 16:44 [place] 0.2 mmol/L (0.0-1.2) 06/22/18 11:00 Urine Cocaine Screen Presumptive negative 06/14/18 16:44 U Marijuana (THC) Screen Presumptive negative 06/14/18 16:44 Drugs of Abuse Note Disclamer 06/14/18 16:44 Plasma/Serum Alcohol < 0.01 % (0-0.07) 06/14/18 Unknown ARAM Screen Negative (Negative) 06/17/18 11:56 Proteinase 3 (PR3) Ab <1.0 AI (<1.0) 06/17/18 11:56 Myeloperoxidase Ab <1.0 AI (<1.0) 06/17/18 11:56 Glomerular Base Mem IgG <1.0 AI (<1.0) 06/17/18 11:56 Complement C3 133 mg/dL () 06/17/18 11:56 Complement C4 38 mg/dL () 06/17/18 11:56 Tot Complement (CH50) >60 U/mL (31-60) H 06/17/18 11:56 Hep Bs Antigen Non-reactive (Negative) 06/17/18 11:56 Hepatitis C Antibody Non-reactive (NonReactive) 06/17/18 11:56 HIV 1&2 Antibody Rapid Non react (Non React) 06/17/18 11:56 HIV P24 Antigen Non react (Non React) 06/17/18 11:56
[2018-06-25] MEDS: DESYREL PO SCH (22:02)
[2018-06-26 06:15] LABS: Hematocrit 46.5 % (35.5-45.6); Hemoglobin 15.4 gm/dl (11.8-15.2); Mean Corpuscular HGB Conc 33 % (32-34); Mean Corpuscular Hemoglobin 30 pg (28-32); Mean Corpuscular Volume 90 fl (84-94); Platelet Count 161 K/mm3 (140-440); Red Blood Count 5.14 M/mm3 (3.65-5.03); Red Cell Distribution Width 15.4 % (13.2-15.2)
[2018-06-26 06:37] LABS: BUN/Creatinine Ratio 12; Blood Urea Nitrogen 12 mg/dL (9-20); Calcium 9.1 mg/dL (8.4-10.2); Hemolysis Index 10
--- NOTE | 2018-06-26 07:17 | Progress Note ---
Assessment and Plan Assessment and plan: Mr. Lobo is 83 yo man with a history of schizophrenia and prior etoh abuse who pw AMS by EMS. Collateral history from sister Deonna Richard. It appears pt has a history of alcohol abuse but He doesn't drink alcohol now (participates in AA) and has dedicated his life to helping other fight alcohol addiction. According to Deonna : He lives alone, totally independent, taking care of all ADLs, chores, driving , participates in AA, manages own affairs. Deonna went out of town but called him on and he did not answer. She tried several more times with no success; therefore, she called EMS to go to the house for a well-check. He was found on the bathroom floor lethargic and not responding. We really don't know how long he was on the floor or Why he fell? Pt was found to have undifferentiated encephalopathy, acute renal failure and mild lithium toxicity. 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 SIRS without infection found on admission, negative cxr and ua [place] toxicity resolved, repeat levels were normal h/o schizophrenia: Psych is following Hypernatremia: Renal is following, Hypokalemia: replace DVT prophylaxis: SCD to BLE while in bed. Advance care planning: full code Disposition: continue inpatient care, awaiting placement, d/w case management, Patient triggered a Level 2 No MRI due to PPM, so repeated CT head and it showed a new lacunar right caudate nucleus infarct, see below: * 06/14/18 CT head w/o contrast IMPRESSION: 1. No acute intracranial findings. 2. Left mastoid sinus disease. 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 No acute intracranial process noted. No change. Persistent left mastoiditis. History Interval history: Patient was seen and examined. Follow-up on current diagnosis of AMS which is much better, has bouts of confusion and speech is occassionally dysarthric. Overnight uneventful. Imaging, nursing note, chart, labs and old chart reviewed. Hospitalist Physical - Physical exam Narrative exam: GEN: WDWN, NAD, Awake, Alert, confused, orientated x 3, year correct with hints HEENT: NCAT, EOMI, PERRL, OP Clear NECK: supple, no adenopathy, no thyromegaly, no JVD CVS/HEART: RRR, normal S1S2, pulses present bilaterally CHEST/LUNGS: CTA B, Symmetrical chest expansion, good air entry bilaterally GI/Abdomen: soft, NTND, good bowel sounds, no guarding or rebound /Bladder: no suprapubic tenderness, no CVA or paraspinal tenderness EXT/Skin: no c/c/e, no obvious rash MSK: FROM x 4, right sided weaker than left; right msk 3/5 vs left 4/5 msk strength Neuro: CN 2-12 grossly intact, follow commands, dysarthric Psych: calm - Constitutional Vitals: Temp Pulse Resp BP Pulse Ox 98.7 F 60 20 161/82 98 06/26/18 05:35 06/26/18 05:35 06/26/18 05:35 06/26/18 05:35 06/26/18 05:35 General appearance: Present: well-nourished, other (restraint) Results - Labs CBC & Chem 7: 06/26/18 05:37 06/26/18 05:37 Labs: Laboratory Last Values WBC 5.6 K/mm3 (4.5-11.0) 06/26/18 05:37 RBC 5.14 M/mm3 (3.65-5.03) H 06/26/18 05:37 Hgb 15.4 gm/dl (11.8-15.2) H 06/26/18 05:37 Hct 46.5 % (35.5-45.6) H 06/26/18 05:37 MCV 90 fl (84-94) 06/26/18 05:37 MCH 30 pg (28-32) 06/26/18 05:37 MCHC 33 % (32-34) 06/26/18 05:37 RDW 15.4 % (13.2-15.2) H 06/26/18 05:37 Plt Count 161 K/mm3 (140-440) 06/26/18 05:37 Lymph % (Auto) 17.5 % (13.4-35.0) 06/23/18 07:25 [place] % (Auto) 12.9 % (0.0-7.3) H 06/23/18 07:25 Eos % (Auto) 1.6 % (0.0-4.3) 06/23/18 07:25 Baso % (Auto) 0.4 % (0.0-1.8) 06/23/18 07:25 Lymph # 1.5 K/mm3 (1.2-5.4) 06/23/18 07:25 [place] # 1.1 K/mm3 (0.0-0.8) H 06/23/18 07:25 Eos # 0.1 K/mm3 (0.0-0.4) 06/23/18 07:25 Baso # 0.0 K/mm3 (0.0-0.1) 06/23/18 07:25 Seg Neutrophils % 67.6 % (40.0-70.0) 06/23/18 07:25 Seg Neutrophils # 5.7 K/mm3 (1.8-7.7) 06/23/18 07:25 Sodium 143 mmol/L (137-145) 06/26/18 05:37 Potassium 4.1 mmol/L (3.6-5.0) D 06/26/18 05:37 Chloride 104.6 mmol/L (98-107) 06/26/18 05:37 Carbon Dioxide 27 mmol/L (22-30) 06/26/18 05:37 Anion Gap 16 mmol/L 06/26/18 05:37 BUN 12 mg/dL (9-20) 06/26/18 05:37 Creatinine 1.0 mg/dL (0.8-1.5) 06/26/18 05:37 Estimated GFR > 60 ml/min 06/26/18 05:37 BUN/Creatinine Ratio 12 % 06/26/18 05:37 Glucose 101 mg/dL (75-100) H 06/26/18 05:37 POC Glucose 95 (70-105) 06/25/18 21:21 Lactic Acid 1.20 mmol/L (0.7-2.0) 06/15/18 13:38 Calcium 9.1 mg/dL (8.4-10.2) 06/26/18 05:37 Phosphorus 2.90 mg/dL (2.5-4.5) 06/22/18 06:57 Total Bilirubin 0.80 mg/dL (0.1-1.2) 06/14/18 Unknown AST 51 units/L (5-40) H 06/14/18 Unknown ALT 24 units/L (7-56) 06/14/18 Unknown Alkaline Phosphatase 110 units/L (35-129) 06/14/18 Unknown Ammonia 44.0 umol/L (25-60) 06/17/18 18:16 Troponin T 0.036 ng/mL (0.00-0.029) H 06/14/18 Unknown Serum Total Protein 6.0 g/dL (6.1-8.1) L 06/17/18 11:56 Total Protein 8.3 g/dL (6.3-8.2) H 06/14/18 Unknown Albumin 3.3 g/dL (3.8-4.8) L 06/17/18 11:56 Albumin/Globulin Ratio 1.5 % 06/14/18 Unknown Pdynd-0-Kyjpyyefx 0.3 g/dL (0.2-0.3) 06/17/18 11:56 Ynzbr-0-Fqtgefjyy 1.0 g/dL (0.5-0.9) H 06/17/18 11:56 Beta Globulins 0.2 g/dL (0.2-0.5) 06/17/18 11:56 Gamma Globulins 0.8 g/dL (0.8-1.7) 06/17/18 11:56 Abnorm Protein Band 1 see below 06/17/18 11:56 Abnorm Protein Band 2 (()) 06/17/18 11:56 Abnorm Protein Band 3 (()) 06/17/18 11:56 PEP Interpretation see below H 06/17/18 11:56 Triglycerides 156 mg/dL (2-149) H 06/14/18 Unknown Cholesterol 73 mg/dL (50-199) 06/14/18 Unknown LDL Cholesterol Direct 17 mg/dL (50-130) L 06/14/18 Unknown HDL Cholesterol 33 mg/dL (40-59) L 06/14/18 Unknown Cholesterol/HDL Ratio 2.21 % 06/14/18 Unknown TSH 1.910 mlU/mL (0.270-4.200) 07/18/18 18:16 Free T4 1.14 ng/dL (0.76-1.46) 06/17/18 18:16 Urine Color Yellow (Yellow) 06/14/18 16:44 Urine Turbidity Clear (Clear) 06/14/18 16:44 Urine pH 5.0 (5.0-7.0) 06/14/18 16:44 Ur Specific [place] 1.020 (1.003-1.030) 06/14/18 16:44 Urine Protein 100 mg/dl mg/dL (Negative) 06/14/18 16:44 Urine Glucose (UA) 50 mg/dL (Negative) 06/14/18 16:44 Urine Ketones Tr mg/dL (Negative) 06/14/18 16:44 Urine Blood Lg (Negative) 06/14/18 16:44 Urine Nitrite Neg (Negative) 06/14/18 16:44 Urine Bilirubin Neg (Negative) 06/14/18 16:44 Urine Urobilinogen < 2.0 mg/dL (<2.0) 06/14/18 16:44 Ur Leukocyte Esterase Neg (Negative) 06/14/18 16:44 Urine WBC (Auto) 6.0 /HPF (0.0-6.0) 06/14/18 16:44 Urine RBC (Auto) 2.0 /HPF (0.0-6.0) 06/14/18 16:44 U Epithel Cells (Auto) < 1.0 /HPF (0-13.0) 06/14/18 16:44 Urine Bacteria (Auto) 1+ /HPF (Negative) 06/14/18 16:44 Urine WBC Clumps Few /HPF 06/14/18 16:44 Hyaline Casts 1 /LPF 06/14/18 16:44 Granular Casts 3 /LPF 06/14/18 16:44 Urine Mucus Few /HPF 06/14/18 16:44 Urine Osmolality 690 Mosm/kg 06/19/18 19:31 Urine Creatinine 129.8 mg/dL (0.1-20.0) H 06/19/18 19:31 Urine Sodium 77 mmol/L 06/19/18 19:31 Urine Chloride 68.2 mmolL (110-250) L 06/19/18 19:31 Salicylates < 0.3 mg/dL (2.8-20.0) L 06/14/18 Unknown Urine Opiates Screen Presumptive negative 06/14/18 16:44 Urine Methadone Screen Presumptive negative 06/14/18 16:44 Acetaminophen < 5.0 ug/mL (10.0-30.0) L 06/14/18 Unknown Ur Barbiturates Screen Presumptive negative 06/14/18 16:44 Ur Phencyclidine Scrn Presumptive negative 06/14/18 16:44 Ur Amphetamines Screen Presumptive negative 06/14/18 16:44 U Benzodiazepines Scrn Presumptive negative 06/14/18 16:44 [place] 0.2 mmol/L (0.0-1.2) 06/22/18 11:00 Urine Cocaine Screen Presumptive negative 06/14/18 16:44 U Marijuana (THC) Screen Presumptive negative 06/14/18 16:44 Drugs of Abuse Note Disclamer 06/14/18 16:44 Plasma/Serum Alcohol < 0.01 % (0-0.07) 06/14/18 Unknown ARAM Screen Negative (Negative) 06/17/18 11:56 Proteinase 3 (PR3) Ab <1.0 AI (<1.0) 06/17/18 11:56 Myeloperoxidase Ab <1.0 AI (<1.0) 06/17/18 11:56 Glomerular Base Mem IgG <1.0 AI (<1.0) 06/17/18 11:56 Complement C3 133 mg/dL () 06/17/18 11:56 Complement C4 38 mg/dL () 06/17/18 11:56 Tot Complement (CH50) >60 U/mL (31-60) H 06/17/18 11:56 Hep Bs Antigen Non-reactive (Negative) 06/17/18 11:56 Hepatitis C Antibody Non-reactive (NonReactive) 06/17/18 11:56 HIV 1&2 Antibody Rapid Non react (Non React) 06/17/18 11:56 HIV P24 Antigen Non react (Non React) 06/17/18 11:56
--- NOTE | 2018-06-26 10:59 | Progress Note ---
Subjective - Reason for Consult Consult date: 06/26/18 Reason for consult: Psychiatry Follow-up - Chief Complaint Chief complaint: "I feel much better" 83 year old white male who presents to the emergency room with altered mental status. Today the patient is calm and cooperative during the assessment. He stated that he feel "much better." He stated that he is getting more sleep since taking Trazodone. He denies SI/HI's and AVH's. He denies any side effects of his medication. Mental Status Exam - Vital signs Last Vital Signs Temp 98.7 F 06/26/18 05:35 Pulse 60 06/26/18 05:35 Resp 20 06/26/18 05:35 BP 161/82 06/26/18 05:35 Pulse Ox 98 06/26/18 05:35 - Exam Narrative exam: MSE: Appearance: calm, cooperative Behavior: regular eye contact Speech: regular rate and tone Mood: "okay" Affect: congruent to mood Thought Process: more organized Thought Content: denies SI/HI's and AVH's Motor Activity: sitting up in bed Cognition: A/O x 3 Insight: fair Judgment: fair Assessment and Plan Impression: Hx of Bipolar DO per the patient and his sister Keiry Medley. Today the patient is calm and cooperative during the assessment. The patient isn't in restraints. The patient's mental status has improved. Medical: Acute Encephalopathy. 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 No acute intracranial process noted. No change. Persistent left mastoiditis. Recommendation/Plan: Will continue to monitor the patient's mental status. Acute rehab vs SNF when discharged. Continue Trazodone 50 mg PO HS for sleep. Discussed possible suicidality/medication induced darlin/priapism with patient reference Trazodone.
[2018-06-26] MEDS: NORVASC PO SCH (11:53)
[2018-06-26] MEDS: SODIUM CHLORIDE FLUSH SYRINGE 10 ML IV SCH ×2 (11:55→22:52)
--- NOTE | 2018-06-26 12:15 | Progress Note ---
Assessment and Plan Assessment and plan: Mr. Lobo is 83 yo man with a history of schizophrenia and prior etoh abuse who pw AMS by EMS. Collateral history from sister Doenna Richard. It appears pt has a history of alcohol abuse but He doesn't drink alcohol now (participates in AA) and has dedicated his life to helping other fight alcohol addiction. According to Deonna : He lives alone, totally independent, taking care of all ADLs, chores, driving , participates in AA, manages own affairs. Deonna went out of town but called him on and he did not answer. She tried several more times with no success; therefore, she called EMS to go to the house for a well-check. He was found on the bathroom floor lethargic and not responding. We really don't know how long he was on the floor or Why he fell? Pt was found to have undifferentiated encephalopathy, acute renal failure and mild lithium toxicity. 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 No acute intracranial findings. 2. Left mastoid sinus disease. 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 No acute intracranial process noted. No change. Persistent left mastoiditis. 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 SIRS without infection found on admission, negative cxr and ua [place] toxicity resolved, repeat levels were normal h/o schizophrenia: Psych is following Hypernatremia: Renal is following, Hypokalemia: replace DVT prophylaxis: SCD to BLE while in bed. Advance care planning: full code Disposition: continue inpatient care, awaiting placement, d/w case management, Patient triggered a Level 2 History Interval history: Patient was seen and examined. Follow-up on current diagnosis of AMS which is much better, has bouts of confusion and speech is occasionally dysarthric. Overnight uneventful. Imaging, nursing note, chart, labs and old chart reviewed. Hospitalist Physical - Physical exam Narrative exam: GEN: WDWN, NAD, Awake, Alert, confused, orientated x 3, year correct with hints HEENT: NCAT, EOMI, PERRL, OP Clear NECK: supple, no adenopathy, no thyromegaly, no JVD CVS/HEART: RRR, normal S1S2, pulses present bilaterally CHEST/LUNGS: CTA B, Symmetrical chest expansion, good air entry bilaterally GI/Abdomen: soft, NTND, good bowel sounds, no guarding or rebound /Bladder: no suprapubic tenderness, no CVA or paraspinal tenderness EXT/Skin: no c/c/e, no obvious rash MSK: FROM x 4, right sided weaker than left; right msk 3/5 vs left 4/5 msk strength Neuro: CN 2-12 grossly intact, follow commands, dysarthric Psych: calm - Constitutional Vitals: Temp Pulse Resp BP Pulse Ox 98.7 F 60 20 133/57 98 06/26/18 05:35 06/26/18 05:35 06/26/18 05:35 06/26/18 11:53 06/26/18 05:35 General appearance: Present: well-nourished, other (restraint) Results - Labs CBC & Chem 7: 06/26/18 05:37 06/26/18 05:37 Labs: Laboratory Last Values WBC 5.6 K/mm3 (4.5-11.0) 06/26/18 05:37 RBC 5.14 M/mm3 (3.65-5.03) H 06/26/18 05:37 Hgb 15.4 gm/dl (11.8-15.2) H 06/26/18 05:37 Hct 46.5 % (35.5-45.6) H 06/26/18 05:37 MCV 90 fl (84-94) 06/26/18 05:37 MCH 30 pg (28-32) 06/26/18 05:37 MCHC 33 % (32-34) 06/26/18 05:37 RDW 15.4 % (13.2-15.2) H 06/26/18 05:37 Plt Count 161 K/mm3 (140-440) 06/26/18 05:37 Lymph % (Auto) 17.5 % (13.4-35.0) 06/23/18 07:25 [place] % (Auto) 12.9 % (0.0-7.3) H 06/23/18 07:25 Eos % (Auto) 1.6 % (0.0-4.3) 06/23/18 07:25 Baso % (Auto) 0.4 % (0.0-1.8) 06/23/18 07:25 Lymph # 1.5 K/mm3 (1.2-5.4) 06/23/18 07:25 [place] # 1.1 K/mm3 (0.0-0.8) H 06/23/18 07:25 Eos # 0.1 K/mm3 (0.0-0.4) 06/23/18 07:25 Baso # 0.0 K/mm3 (0.0-0.1) 06/23/18 07:25 Seg Neutrophils % 67.6 % (40.0-70.0) 06/23/18 07:25 Seg Neutrophils # 5.7 K/mm3 (1.8-7.7) 06/23/18 07:25 Sodium 143 mmol/L (137-145) 06/26/18 05:37 Potassium 4.1 mmol/L (3.6-5.0) D 06/26/18 05:37 Chloride 104.6 mmol/L (98-107) 06/26/18 05:37 Carbon Dioxide 27 mmol/L (22-30) 06/26/18 05:37 Anion Gap 16 mmol/L 06/26/18 05:37 BUN 12 mg/dL (9-20) 06/26/18 05:37 Creatinine 1.0 mg/dL (0.8-1.5) 06/26/18 05:37 Estimated GFR > 60 ml/min 06/26/18 05:37 BUN/Creatinine Ratio 12 % 06/26/18 05:37 Glucose 101 mg/dL (75-100) H 06/26/18 05:37 POC Glucose 162 (70-105) H 06/26/18 11:43 Lactic Acid 1.20 mmol/L (0.7-2.0) 06/15/18 13:38 Calcium 9.1 mg/dL (8.4-10.2) 06/26/18 05:37 Phosphorus 2.90 mg/dL (2.5-4.5) 06/22/18 06:57 Total Bilirubin 0.80 mg/dL (0.1-1.2) 06/14/18 Unknown AST 51 units/L (5-40) H 06/14/18 Unknown ALT 24 units/L (7-56) 06/14/18 Unknown Alkaline Phosphatase 110 units/L (35-129) 06/14/18 Unknown Ammonia 44.0 umol/L (25-60) 06/17/18 18:16 Troponin T 0.036 ng/mL (0.00-0.029) H 06/14/18 Unknown Serum Total Protein 6.0 g/dL (6.1-8.1) L 06/17/18 11:56 Total Protein 8.3 g/dL (6.3-8.2) H 06/14/18 Unknown Albumin 3.3 g/dL (3.8-4.8) L 06/17/18 11:56 Albumin/Globulin Ratio 1.5 % 06/14/18 Unknown Eddcl-6-Xxvszjstm 0.3 g/dL (0.2-0.3) 06/17/18 11:56 Ikgne-4-Oktsghwac 1.0 g/dL (0.5-0.9) H 06/17/18 11:56 Beta Globulins 0.2 g/dL (0.2-0.5) 06/17/18 11:56 Gamma Globulins 0.8 g/dL (0.8-1.7) 06/17/18 11:56 Abnorm Protein Band 1 see below 06/17/18 11:56 Abnorm Protein Band 2 (()) 06/17/18 11:56 Abnorm Protein Band 3 (()) 06/17/18 11:56 PEP Interpretation see below H 06/17/18 11:56 Triglycerides 156 mg/dL (2-149) H 06/14/18 Unknown Cholesterol 73 mg/dL (50-199) 06/14/18 Unknown LDL Cholesterol Direct 17 mg/dL (50-130) L 06/14/18 Unknown HDL Cholesterol 33 mg/dL (40-59) L 06/14/18 Unknown Cholesterol/HDL Ratio 2.21 % 06/14/18 Unknown TSH 1.910 mlU/mL (0.270-4.200) 06/17/18 18:16 Free T4 1.14 ng/dL (0.76-1.46) 06/17/18 18:16 Urine Color Yellow (Yellow) 06/14/18 16:44 Urine Turbidity Clear (Clear) 06/14/18 16:44 Urine pH 5.0 (5.0-7.0) 06/14/18 16:44 Ur Specific [place] 1.020 (1.003-1.030) 06/14/18 16:44 Urine Protein 100 mg/dl mg/dL (Negative) 06/14/18 16:44 Urine Glucose (UA) 50 mg/dL (Negative) 06/14/18 16:44 Urine Ketones Tr mg/dL (Negative) 06/14/18 16:44 Urine Blood Lg (Negative) 06/14/18 16:44 Urine Nitrite Neg (Negative) 06/14/18 16:44 Urine Bilirubin Neg (Negative) 06/14/18 16:44 Urine Urobilinogen < 2.0 mg/dL (<2.0) 06/14/18 16:44 Ur Leukocyte Esterase Neg (Negative) 06/14/18 16:44 Urine WBC (Auto) 6.0 /HPF (0.0-6.0) 06/14/18 16:44 Urine RBC (Auto) 2.0 /HPF (0.0-6.0) 06/14/18 16:44 U Epithel Cells (Auto) < 1.0 /HPF (0-13.0) 06/14/18 16:44 Urine Bacteria (Auto) 1+ /HPF (Negative) 06/14/18 16:44 Urine WBC Clumps Few /HPF 06/14/18 16:44 Hyaline Casts 1 /LPF 06/14/18 16:44 Granular Casts 3 /LPF 06/14/18 16:44 Urine Mucus Few /HPF 06/14/18 16:44 Urine Osmolality 690 Mosm/kg 06/19/18 19:31 Urine Creatinine 129.8 mg/dL (0.1-20.0) H 06/19/18 19:31 Urine Sodium 77 mmol/L 06/19/18 19:31 Urine Chloride 68.2 mmolL (110-250) L 06/19/18 19:31 Salicylates < 0.3 mg/dL (2.8-20.0) L 06/14/18 Unknown Urine Opiates Screen Presumptive negative 06/14/18 16:44 Urine Methadone Screen Presumptive negative 06/14/18 16:44 Acetaminophen < 5.0 ug/mL (10.0-30.0) L 06/14/18 Unknown Ur Barbiturates Screen Presumptive negative 06/14/18 16:44 Ur Phencyclidine Scrn Presumptive negative 06/14/18 16:44 Ur Amphetamines Screen Presumptive negative 06/14/18 16:44 U Benzodiazepines Scrn Presumptive negative 06/14/18 16:44 [place] 0.2 mmol/L (0.0-1.2) 06/22/18 11:00 Urine Cocaine Screen Presumptive negative 06/14/18 16:44 U Marijuana (THC) Screen Presumptive negative 06/14/18 16:44 Drugs of Abuse Note Disclamer 06/14/18 16:44 Plasma/Serum Alcohol < 0.01 % (0-0.07) 06/14/18 Unknown ARAM Screen Negative (Negative) 06/17/18 11:56 Proteinase 3 (PR3) Ab <1.0 AI (<1.0) 06/17/18 11:56 Myeloperoxidase Ab <1.0 AI (<1.0) 06/17/18 11:56 Glomerular Base Mem IgG <1.0 AI (<1.0) 06/17/18 11:56 Complement C3 133 mg/dL () 06/17/18 11:56 Complement C4 38 mg/dL () 06/17/18 11:56 Tot Complement (CH50) >60 U/mL (31-60) H 06/17/18 11:56 Hep Bs Antigen Non-reactive (Negative) 06/17/18 11:56 Hepatitis C Antibody Non-reactive (NonReactive) 06/17/18 11:56 HIV 1&2 Antibody Rapid Non react (Non React) 06/17/18 11:56 HIV P24 Antigen Non react (Non React) 06/17/18 11:56
[2018-06-26] MEDS: DESYREL PO SCH (22:52)
--- NOTE | 2018-06-27 07:39 | Progress Note ---
Assessment and Plan Assessment and plan: Mr. Lobo is 83 yo man with a history of schizophrenia and prior etoh abuse who pw AMS by EMS. Collateral history from sister Deonna Richard. It appears pt has a history of alcohol abuse but He doesn't drink alcohol now (participates in AA) and has dedicated his life to helping other fight alcohol addiction. According to Deonna : He lives alone, totally independent, taking care of all ADLs, chores, driving , participates in AA, manages own affairs. Deonna went out of town but called him on and he did not answer. She tried several more times with no success; therefore, she called EMS to go to the house for a well-check. He was found on the bathroom floor lethargic and not responding. We really don't know how long he was on the floor or Why he fell? Pt was found to have undifferentiated encephalopathy, acute renal failure and mild lithium toxicity. 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 No acute intracranial findings. 2. Left mastoid sinus disease. 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 No acute intracranial process noted. No change. Persistent left mastoiditis. 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 SIRS without infection found on admission, negative cxr and ua [place] toxicity resolved, repeat levels were normal h/o schizophrenia: Psych is following Hypernatremia: Renal is following, Hypokalemia: replace DVT prophylaxis: SCD to BLE while in bed. Advance care planning: full code Disposition: continue inpatient care, awaiting placement, d/w case management, Patient triggered a Level 2 ordered Hydralazine 25mg po q8 for better bp control but prior to the norvasc 10mg/d is 116, so stop the hydralazine and half the norvasc, continue to monitor bp. History Interval history: Patient was seen and examined. Follow-up on current diagnosis much improved but gets confused at night, so restraints re-ordered. Overnight uneventful. Patient denies any chest pain, shortness breath, nausea/vomiting or severe headaches. Imaging, nursing note, chart, labs and old chart reviewed. Discussed with patient. Hospitalist Physical - Physical exam Narrative exam: GEN: WDWN, NAD, Awake, Alert, Orientated x 3 HEENT: NCAT, EOMI, PERRL, OP Clear NECK: supple, no adenopathy, no thyromegaly, no JVD CVS/HEART: RRR, normal S1S2, pulses present bilaterally CHEST/LUNGS: CTA B, Symmetrical chest expansion, good air entry bilaterally GI/Abdomen: soft, NTND, good bowel sounds, no guarding or rebound /Bladder: no suprapubic tenderness, no CVA or paraspinal tenderness EXT/Skin: no c/c/e, no obvious rash MSK: FROM x 4, right side weaker than left side Neuro: CN 2-12 grossly intact, no new focal deficits, dysarthric Psych: calm - Constitutional Vitals: Temp Pulse Resp BP Pulse Ox 97.4 F L 60 20 182/84 97 06/27/18 05:34 06/27/18 05:34 06/27/18 05:34 06/27/18 05:34 06/27/18 05:34 General appearance: Present: well-nourished, other (restraint) Results - Labs CBC & Chem 7: 06/26/18 05:37 06/26/18 05:37 Labs: Laboratory Last Values WBC 5.6 K/mm3 (4.5-11.0) 06/26/18 05:37 RBC 5.14 M/mm3 (3.65-5.03) H 06/26/18 05:37 Hgb 15.4 gm/dl (11.8-15.2) H 06/26/18 05:37 Hct 46.5 % (35.5-45.6) H 06/26/18 05:37 MCV 90 fl (84-94) 06/26/18 05:37 MCH 30 pg (28-32) 06/26/18 05:37 MCHC 33 % (32-34) 06/26/18 05:37 RDW 15.4 % (13.2-15.2) H 06/26/18 05:37 Plt Count 161 K/mm3 (140-440) 06/26/18 05:37 Lymph % (Auto) 17.5 % (13.4-35.0) 06/23/18 07:25 [place] % (Auto) 12.9 % (0.0-7.3) H 06/23/18 07:25 Eos % (Auto) 1.6 % (0.0-4.3) 06/23/18 07:25 Baso % (Auto) 0.4 % (0.0-1.8) 06/23/18 07:25 Lymph # 1.5 K/mm3 (1.2-5.4) 06/23/18 07:25 [place] # 1.1 K/mm3 (0.0-0.8) H 06/23/18 07:25 Eos # 0.1 K/mm3 (0.0-0.4) 06/23/18 07:25 Baso # 0.0 K/mm3 (0.0-0.1) 06/23/18 07:25 Seg Neutrophils % 67.6 % (40.0-70.0) 06/23/18 07:25 Seg Neutrophils # 5.7 K/mm3 (1.8-7.7) 06/23/18 07:25 Sodium 143 mmol/L (137-145) 06/26/18 05:37 Potassium 4.1 mmol/L (3.6-5.0) D 06/26/18 05:37 Chloride 104.6 mmol/L (98-107) 06/26/18 05:37 Carbon Dioxide 27 mmol/L (22-30) 06/26/18 05:37 Anion Gap 16 mmol/L 06/26/18 05:37 BUN 12 mg/dL (9-20) 06/26/18 05:37 Creatinine 1.0 mg/dL (0.8-1.5) 06/26/18 05:37 Estimated GFR > 60 ml/min 06/26/18 05:37 BUN/Creatinine Ratio 12 % 06/26/18 05:37 Glucose 101 mg/dL (75-100) H 06/26/18 05:37 POC Glucose 106 (70-105) H 06/26/18 21:24 Lactic Acid 1.20 mmol/L (0.7-2.0) 06/15/18 13:38 Calcium 9.1 mg/dL (8.4-10.2) 06/26/18 05:37 Phosphorus 2.90 mg/dL (2.5-4.5) 06/22/18 06:57 Total Bilirubin 0.80 mg/dL (0.1-1.2) 06/14/18 Unknown AST 51 units/L (5-40) H 06/14/18 Unknown ALT 24 units/L (7-56) 06/14/18 Unknown Alkaline Phosphatase 110 units/L (35-129) 06/14/18 Unknown Ammonia 44.0 umol/L (25-60) 06/17/18 18:16 Troponin T 0.036 ng/mL (0.00-0.029) H 06/14/18 Unknown Serum Total Protein 6.0 g/dL (6.1-8.1) L 06/17/18 11:56 Total Protein 8.3 g/dL (6.3-8.2) H 06/14/18 Unknown Albumin 3.3 g/dL (3.8-4.8) L 06/17/18 11:56 Albumin/Globulin Ratio 1.5 % 06/14/18 Unknown Jnyfs-8-Niflspljp 0.3 g/dL (0.2-0.3) 06/17/18 11:56 Trwfp-9-Gxakzmbkl 1.0 g/dL (0.5-0.9) H 06/17/18 11:56 Beta Globulins 0.2 g/dL (0.2-0.5) 06/17/18 11:56 Gamma Globulins 0.8 g/dL (0.8-1.7) 06/17/18 11:56 Abnorm Protein Band 1 see below 06/17/18 11:56 Abnorm Protein Band 2 (()) 06/17/18 11:56 Abnorm Protein Band 3 (()) 06/17/18 11:56 PEP Interpretation see below H 06/17/18 11:56 Triglycerides 156 mg/dL (2-149) H 06/14/18 Unknown Cholesterol 73 mg/dL (50-199) 06/14/18 Unknown LDL Cholesterol Direct 17 mg/dL (50-130) L 06/14/18 Unknown HDL Cholesterol 33 mg/dL (40-59) L 06/14/18 Unknown Cholesterol/HDL Ratio 2.21 % 06/14/18 Unknown TSH 1.910 mlU/mL (0.270-4.200) 06/17/18 18:16 Free T4 1.14 ng/dL (0.76-1.46) 06/17/18 18:16 Urine Color Yellow (Yellow) 06/14/18 16:44 Urine Turbidity Clear (Clear) 06/14/18 16:44 Urine pH 5.0 (5.0-7.0) 06/14/18 16:44 Ur Specific [place] 1.020 (1.003-1.030) 06/14/18 16:44 Urine Protein 100 mg/dl mg/dL (Negative) 06/14/18 16:44 Urine Glucose (UA) 50 mg/dL (Negative) 06/14/18 16:44 Urine Ketones Tr mg/dL (Negative) 06/14/18 16:44 Urine Blood Lg (Negative) 06/14/18 16:44 Urine Nitrite Neg (Negative) 06/14/18 16:44 Urine Bilirubin Neg (Negative) 06/14/18 16:44 Urine Urobilinogen < 2.0 mg/dL (<2.0) 06/14/18 16:44 Ur Leukocyte Esterase Neg (Negative) 06/14/18 16:44 Urine WBC (Auto) 6.0 /HPF (0.0-6.0) 06/14/18 16:44 Urine RBC (Auto) 2.0 /HPF (0.0-6.0) 06/14/18 16:44 U Epithel Cells (Auto) < 1.0 /HPF (0-13.0) 06/14/18 16:44 Urine Bacteria (Auto) 1+ /HPF (Negative) 06/14/18 16:44 Urine WBC Clumps Few /HPF 06/14/18 16:44 Hyaline Casts 1 /LPF 06/14/18 16:44 Granular Casts 3 /LPF 06/14/18 16:44 Urine Mucus Few /HPF 06/14/18 16:44 Urine Osmolality 690 Mosm/kg 06/19/18 19:31 Urine Creatinine 129.8 mg/dL (0.1-20.0) H 06/19/18 19:31 Urine Sodium 77 mmol/L 06/19/18 19:31 Urine Chloride 68.2 mmolL (110-250) L 06/19/18 19:31 Salicylates < 0.3 mg/dL (2.8-20.0) L 06/14/18 Unknown Urine Opiates Screen Presumptive negative 06/14/18 16:44 Urine Methadone Screen Presumptive negative 06/14/18 16:44 Acetaminophen < 5.0 ug/mL (10.0-30.0) L 06/14/18 Unknown Ur Barbiturates Screen Presumptive negative 06/14/18 16:44 Ur Phencyclidine Scrn Presumptive negative 06/14/18 16:44 Ur Amphetamines Screen Presumptive negative 06/14/18 16:44 U Benzodiazepines Scrn Presumptive negative 06/14/18 16:44 [place] 0.2 mmol/L (0.0-1.2) 06/22/18 11:00 Urine Cocaine Screen Presumptive negative 06/14/18 16:44 U Marijuana (THC) Screen Presumptive negative 06/14/18 16:44 Drugs of Abuse Note Disclamer 06/14/18 16:44 Plasma/Serum Alcohol < 0.01 % (0-0.07) 06/14/18 Unknown ARAM Screen Negative (Negative) 06/17/18 11:56 Proteinase 3 (PR3) Ab <1.0 AI (<1.0) 06/17/18 11:56 Myeloperoxidase Ab <1.0 AI (<1.0) 06/17/18 11:56 Glomerular Base Mem IgG <1.0 AI (<1.0) 06/17/18 11:56 Complement C3 133 mg/dL () 06/17/18 11:56 Complement C4 38 mg/dL () 06/17/18 11:56 Tot Complement (CH50) >60 U/mL (31-60) H 06/17/18 11:56 Hep Bs Antigen Non-reactive (Negative) 06/17/18 11:56 Hepatitis C Antibody Non-reactive (NonReactive) 06/17/18 11:56 HIV 1&2 Antibody Rapid Non react (Non React) 06/17/18 11:56 HIV P24 Antigen Non react (Non React) 06/17/18 11:56
[2018-06-27] MEDS ORDERED: APRESOLINE PO SCH (08:00)
[2018-06-27] MEDS: SODIUM CHLORIDE FLUSH SYRINGE 10 ML IV SCH ×2 (10:19→22:13)
[2018-06-27] MEDS: NORVASC PO SCH (10:19)
[2018-06-27] MEDS: DESYREL PO SCH (22:12)
--- NOTE | 2018-06-28 09:19 | Progress Note ---
Assessment and Plan Assessment and plan: Mr. Lobo is 83 yo man with a history of schizophrenia and prior etoh abuse who pw AMS by EMS. Patient doesn't drink alcohol now. He was found on the bathroom floor lethargic and not responding. We really don' t know how long he was on the floor or Why he fell? Pt was found to have undifferentiated encephalopathy, acute renal failure and mild lithium toxicity. 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 No acute intracranial findings. 2. Left mastoid sinus disease. 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 No acute intracranial process noted. No change. Persistent left mastoiditis. 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 SIRS without infection found on admission, negative cxr and ua [place] toxicity resolved, repeat levels were normal h/o schizophrenia: Psych is following Hypernatremia: Renal is following, Hypokalemia: replace DVT prophylaxis: SCD to BLE while in bed. Advance care planning: full code Disposition: continue inpatient care, awaiting placement, d/w case management, Patient triggered a Level 2 History Interval history: Patient was seen and evaluated this morning, Patient was calm and cooperative. Hospitalist Physical - Physical exam Narrative exam: Not in cardiopulmonary distress. The patient appeared well nourished and normally developed. Vital signs as documented. Head exam is unremarkable. No scleral icterus . Neck is without jugular venous distension, thyromegaly, or carotid bruits. Lungs are clear to auscultation. Cardiac exam reveals regular rate and Rhythm. First and second heart sounds normal. No murmurs, rubs or gallops. Abdominal exam reveals normal bowel sounds, no masses, no organomegaly and no aortic enlargement. Extremities are nonedematous and both femoral and pedal pulses are normal. REGULATORY MANAGER: Alert - Constitutional Vitals: Temp Pulse Resp BP Pulse Ox 97.2 F L 60 19 170/79 95 06/28/18 06:13 06/28/18 06:13 06/28/18 06:13 06/28/18 06:13 06/28/18 06:13 General appearance: Present: well-nourished, other (restraint) Results - Labs CBC & Chem 7: 06/26/18 05:37 06/26/18 05:37 Labs: Laboratory Last Values WBC 5.6 K/mm3 (4.5-11.0) 06/26/18 05:37 RBC 5.14 M/mm3 (3.65-5.03) H 06/26/18 05:37 Hgb 15.4 gm/dl (11.8-15.2) H 06/26/18 05:37 Hct 46.5 % (35.5-45.6) H 06/26/18 05:37 MCV 90 fl (84-94) 06/26/18 05:37 MCH 30 pg (28-32) 06/26/18 05:37 MCHC 33 % (32-34) 06/26/18 05:37 RDW 15.4 % (13.2-15.2) H 06/26/18 05:37 Plt Count 161 K/mm3 (140-440) 06/26/18 05:37 Lymph % (Auto) 17.5 % (13.4-35.0) 06/23/18 07:25 [place] % (Auto) 12.9 % (0.0-7.3) H 06/23/18 07:25 Eos % (Auto) 1.6 % (0.0-4.3) 06/23/18 07:25 Baso % (Auto) 0.4 % (0.0-1.8) 06/23/18 07:25 Lymph # 1.5 K/mm3 (1.2-5.4) 06/23/18 07:25 [place] # 1.1 K/mm3 (0.0-0.8) H 06/23/18 07:25 Eos # 0.1 K/mm3 (0.0-0.4) 06/23/18 07:25 Baso # 0.0 K/mm3 (0.0-0.1) 06/23/18 07:25 Seg Neutrophils % 67.6 % (40.0-70.0) 06/23/18 07:25 Seg Neutrophils # 5.7 K/mm3 (1.8-7.7) 06/23/18 07:25 Sodium 143 mmol/L (137-145) 06/26/18 05:37 Potassium 4.1 mmol/L (3.6-5.0) D 06/26/18 05:37 Chloride 104.6 mmol/L (98-107) 06/26/18 05:37 Carbon Dioxide 27 mmol/L (22-30) 06/26/18 05:37 Anion Gap 16 mmol/L 06/26/18 05:37 BUN 12 mg/dL (9-20) 06/26/18 05:37 Creatinine 1.0 mg/dL (0.8-1.5) 06/26/18 05:37 Estimated GFR > 60 ml/min 06/26/18 05:37 BUN/Creatinine Ratio 12 % 06/26/18 05:37 Glucose 101 mg/dL (75-100) H 06/26/18 05:37 POC Glucose 106 (70-105) H 06/26/18 21:24 Lactic Acid 1.20 mmol/L (0.7-2.0) 06/15/18 13:38 Calcium 9.1 mg/dL (8.4-10.2) 06/26/18 05:37 Phosphorus 2.90 mg/dL (2.5-4.5) 06/22/18 06:57 Total Bilirubin 0.80 mg/dL (0.1-1.2) 06/14/18 Unknown AST 51 units/L (5-40) H 06/14/18 Unknown ALT 24 units/L (7-56) 06/14/18 Unknown Alkaline Phosphatase 110 units/L (35-129) 06/14/18 Unknown Ammonia 44.0 umol/L (25-60) 06/17/18 18:16 Troponin T 0.036 ng/mL (0.00-0.029) H 06/14/18 Unknown Serum Total Protein 6.0 g/dL (6.1-8.1) L 06/17/18 11:56 Total Protein 8.3 g/dL (6.3-8.2) H 06/14/18 Unknown Albumin 3.3 g/dL (3.8-4.8) L 06/17/18 11:56 Albumin/Globulin Ratio 1.5 % 06/14/18 Unknown Rcphm-7-Haflrugzx 0.3 g/dL (0.2-0.3) 06/17/18 11:56 Uhekx-7-Iutdpitzj 1.0 g/dL (0.5-0.9) H 06/17/18 11:56 Beta Globulins 0.2 g/dL (0.2-0.5) 06/17/18 11:56 Gamma Globulins 0.8 g/dL (0.8-1.7) 06/17/18 11:56 Abnorm Protein Band 1 see below 06/17/18 11:56 Abnorm Protein Band 2 (()) 06/17/18 11:56 Abnorm Protein Band 3 (()) 06/17/18 11:56 PEP Interpretation see below H 06/17/18 11:56 Triglycerides 156 mg/dL (2-149) H 06/14/18 Unknown Cholesterol 73 mg/dL (50-199) 06/14/18 Unknown LDL Cholesterol Direct 17 mg/dL (50-130) L 06/14/18 Unknown HDL Cholesterol 33 mg/dL (40-59) L 06/14/18 Unknown Cholesterol/HDL Ratio 2.21 % 06/14/18 Unknown TSH 1.910 mlU/mL (0.270-4.200) 06/17/18 18:16 Free T4 1.14 ng/dL (0.76-1.46) 06/17/18 18:16 Urine Color Yellow (Yellow) 06/14/18 16:44 Urine Turbidity Clear (Clear) 06/14/18 16:44 Urine pH 5.0 (5.0-7.0) 06/14/18 16:44 Ur Specific [place] 1.020 (1.003-1.030) 06/14/18 16:44 Urine Protein 100 mg/dl mg/dL (Negative) 06/14/18 16:44 Urine Glucose (UA) 50 mg/dL (Negative) 06/14/18 16:44 Urine Ketones Tr mg/dL (Negative) 06/14/18 16:44 Urine Blood Lg (Negative) 06/14/18 16:44 Urine Nitrite Neg (Negative) 06/14/18 16:44 Urine Bilirubin Neg (Negative) 06/14/18 16:44 Urine Urobilinogen < 2.0 mg/dL (<2.0) 06/14/18 16:44 Ur Leukocyte Esterase Neg (Negative) 06/14/18 16:44 Urine WBC (Auto) 6.0 /HPF (0.0-6.0) 06/14/18 16:44 Urine RBC (Auto) 2.0 /HPF (0.0-6.0) 06/14/18 16:44 U Epithel Cells (Auto) < 1.0 /HPF (0-13.0) 06/14/18 16:44 Urine Bacteria (Auto) 1+ /HPF (Negative) 06/14/18 16:44 Urine WBC Clumps Few /HPF 06/14/18 16:44 Hyaline Casts 1 /LPF 06/14/18 16:44 Granular Casts 3 /LPF 06/14/18 16:44 Urine Mucus Few /HPF 06/14/18 16:44 Urine Osmolality 690 Mosm/kg 06/19/18 19:31 Urine Creatinine 129.8 mg/dL (0.1-20.0) H 06/19/18 19:31 Urine Sodium 77 mmol/L 06/19/18 19:31 Urine Chloride 68.2 mmolL (110-250) L 06/19/18 19:31 Salicylates < 0.3 mg/dL (2.8-20.0) L 06/14/18 Unknown Urine Opiates Screen Presumptive negative 06/14/18 16:44 Urine Methadone Screen Presumptive negative 06/14/18 16:44 Acetaminophen < 5.0 ug/mL (10.0-30.0) L 06/14/18 Unknown Ur Barbiturates Screen Presumptive negative 06/14/18 16:44 Ur Phencyclidine Scrn Presumptive negative 06/14/18 16:44 Ur Amphetamines Screen Presumptive negative 06/14/18 16:44 U Benzodiazepines Scrn Presumptive negative 06/14/18 16:44 [place] 0.2 mmol/L (0.0-1.2) 06/22/18 11:00 Urine Cocaine Screen Presumptive negative 06/14/18 16:44 U Marijuana (THC) Screen Presumptive negative 06/14/18 16:44 Drugs of Abuse Note Disclamer 06/14/18 16:44 Plasma/Serum Alcohol < 0.01 % (0-0.07) 06/14/18 Unknown ARAM Screen Negative (Negative) 06/17/18 11:56 Proteinase 3 (PR3) Ab <1.0 AI (<1.0) 06/17/18 11:56 Myeloperoxidase Ab <1.0 AI (<1.0) 06/17/18 11:56 Glomerular Base Mem IgG <1.0 AI (<1.0) 06/17/18 11:56 Complement C3 133 mg/dL () 06/17/18 11:56 Complement C4 38 mg/dL () 06/17/18 11:56 Tot Complement (CH50) >60 U/mL (31-60) H 06/17/18 11:56 Hep Bs Antigen Non-reactive (Negative) 06/17/18 11:56 Hepatitis C Antibody Non-reactive (NonReactive) 06/17/18 11:56 HIV 1&2 Antibody Rapid Non react (Non React) 06/17/18 11:56 HIV P24 Antigen Non react (Non React) 06/17/18 11:56
[2018-06-28] MEDS: NORVASC PO SCH ×2 (09:20→13:16)
[2018-06-28] MEDS: SODIUM CHLORIDE FLUSH SYRINGE 10 ML IV SCH ×2 (09:21→21:55)
[2018-06-28] MEDS: DESYREL PO SCH (21:55)
--- NOTE | 2018-06-29 08:12 | Progress Note ---
Assessment and Plan Assessment and plan: Mr. Lobo is 83 yo man with a history of schizophrenia and prior etoh abuse who presented with AMS by EMS. Patient doesn't drink alcohol now. He was found on the bathroom floor lethargic and not responding. We really don' t know how long he was on the floor or Why he fell? Pt was found to have undifferentiated encephalopathy, acute renal failure and mild lithium toxicity. 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 No acute intracranial findings. 2. Left mastoid sinus disease. 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 No acute intracranial process noted. No change. Persistent left mastoiditis. 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 SIRS without infection found on admission, negative cxr and ua [place] toxicity resolved, repeat levels were normal h/o schizophrenia: Psych is following Hypernatremia: Renal is following, Hypokalemia: replace DVT prophylaxis: SCD to BLE while in bed. Advance care planning: full code Disposition: continue inpatient care, awaiting placement, d/w case management, Patient triggered a Level 2 History Interval history: Patient was seen and evaluated this morning, Patient was calm and cooperative. Hospitalist Physical - Physical exam Narrative exam: Not in cardiopulmonary distress. The patient appeared well nourished and normally developed. Vital signs as documented. Head exam is unremarkable. No scleral icterus . Neck is without jugular venous distension, thyromegaly, or carotid bruits. Lungs are clear to auscultation. Cardiac exam reveals regular rate and Rhythm. First and second heart sounds normal. No murmurs, rubs or gallops. Abdominal exam reveals normal bowel sounds, no masses, no organomegaly and no aortic enlargement. Extremities are nonedematous and both femoral and pedal pulses are normal. TRAIN EXAMINER: Alert , dyarthric. - Constitutional Vitals: Temp Pulse Resp BP Pulse Ox 98.8 F 60 16 107/45 96 07/29/18 23:54 06/28/18 23:54 06/28/18 23:54 06/28/18 23:54 06/28/18 23:54 General appearance: Present: well-nourished, other (restraint) Results - Labs CBC & Chem 7: 06/26/18 05:37 06/26/18 05:37 Labs: Laboratory Last Values WBC 5.6 K/mm3 (4.5-11.0) 06/26/18 05:37 RBC 5.14 M/mm3 (3.65-5.03) H 06/26/18 05:37 Hgb 15.4 gm/dl (11.8-15.2) H 06/26/18 05:37 Hct 46.5 % (35.5-45.6) H 06/26/18 05:37 MCV 90 fl (84-94) 06/26/18 05:37 MCH 30 pg (28-32) 06/26/18 05:37 MCHC 33 % (32-34) 06/26/18 05:37 RDW 15.4 % (13.2-15.2) H 06/26/18 05:37 Plt Count 161 K/mm3 (140-440) 06/26/18 05:37 Lymph % (Auto) 17.5 % (13.4-35.0) 06/23/18 07:25 [place] % (Auto) 12.9 % (0.0-7.3) H 06/23/18 07:25 Eos % (Auto) 1.6 % (0.0-4.3) 06/23/18 07:25 Baso % (Auto) 0.4 % (0.0-1.8) 06/23/18 07:25 Lymph # 1.5 K/mm3 (1.2-5.4) 06/23/18 07:25 [place] # 1.1 K/mm3 (0.0-0.8) H 06/23/18 07:25 Eos # 0.1 K/mm3 (0.0-0.4) 06/23/18 07:25 Baso # 0.0 K/mm3 (0.0-0.1) 06/23/18 07:25 Seg Neutrophils % 67.6 % (40.0-70.0) 06/23/18 07:25 Seg Neutrophils # 5.7 K/mm3 (1.8-7.7) 06/23/18 07:25 Sodium 143 mmol/L (137-145) 06/26/18 05:37 Potassium 4.1 mmol/L (3.6-5.0) D 06/26/18 05:37 Chloride 104.6 mmol/L (98-107) 06/26/18 05:37 Carbon Dioxide 27 mmol/L (22-30) 06/26/18 05:37 Anion Gap 16 mmol/L 06/26/18 05:37 BUN 12 mg/dL (9-20) 06/26/18 05:37 Creatinine 1.0 mg/dL (0.8-1.5) 06/26/18 05:37 Estimated GFR > 60 ml/min 06/26/18 05:37 BUN/Creatinine Ratio 12 % 06/26/18 05:37 Glucose 101 mg/dL (75-100) H 06/26/18 05:37 POC Glucose 106 (70-105) H 06/26/18 21:24 Lactic Acid 1.20 mmol/L (0.7-2.0) 06/15/18 13:38 Calcium 9.1 mg/dL (8.4-10.2) 06/26/18 05:37 Phosphorus 2.90 mg/dL (2.5-4.5) 06/22/18 06:57 Total Bilirubin 0.80 mg/dL (0.1-1.2) 06/14/18 Unknown AST 51 units/L (5-40) H 06/14/18 Unknown ALT 24 units/L (7-56) 06/14/18 Unknown Alkaline Phosphatase 110 units/L (35-129) 06/14/18 Unknown Ammonia 44.0 umol/L (25-60) 06/17/18 18:16 Troponin T 0.036 ng/mL (0.00-0.029) H 06/14/18 Unknown Serum Total Protein 6.0 g/dL (6.1-8.1) L 06/17/18 11:56 Total Protein 8.3 g/dL (6.3-8.2) H 06/14/18 Unknown Albumin 3.3 g/dL (3.8-4.8) L 06/17/18 11:56 Albumin/Globulin Ratio 1.5 % 06/14/18 Unknown Rwwct-1-Pbrxxawmc 0.3 g/dL (0.2-0.3) 06/17/18 11:56 Iprjj-0-Aifxazzlm 1.0 g/dL (0.5-0.9) H 06/17/18 11:56 Beta Globulins 0.2 g/dL (0.2-0.5) 06/17/18 11:56 Gamma Globulins 0.8 g/dL (0.8-1.7) 06/17/18 11:56 Abnorm Protein Band 1 see below 06/17/18 11:56 Abnorm Protein Band 2 (()) 06/17/18 11:56 Abnorm Protein Band 3 (()) 06/17/18 11:56 PEP Interpretation see below H 06/17/18 11:56 Triglycerides 156 mg/dL (2-149) H 06/14/18 Unknown Cholesterol 73 mg/dL (50-199) 06/14/18 Unknown LDL Cholesterol Direct 17 mg/dL (50-130) L 06/14/18 Unknown HDL Cholesterol 33 mg/dL (40-59) L 06/14/18 Unknown Cholesterol/HDL Ratio 2.21 % 06/14/18 Unknown TSH 1.910 mlU/mL (0.270-4.200) 06/17/18 18:16 Free T4 1.14 ng/dL (0.76-1.46) 06/17/18 18:16 Urine Color Yellow (Yellow) 06/14/18 16:44 Urine Turbidity Clear (Clear) 06/14/18 16:44 Urine pH 5.0 (5.0-7.0) 06/14/18 16:44 Ur Specific [place] 1.020 (1.003-1.030) 06/14/18 16:44 Urine Protein 100 mg/dl mg/dL (Negative) 06/14/18 16:44 Urine Glucose (UA) 50 mg/dL (Negative) 06/14/18 16:44 Urine Ketones Tr mg/dL (Negative) 06/14/18 16:44 Urine Blood Lg (Negative) 06/14/18 16:44 Urine Nitrite Neg (Negative) 06/14/18 16:44 Urine Bilirubin Neg (Negative) 06/14/18 16:44 Urine Urobilinogen < 2.0 mg/dL (<2.0) 06/14/18 16:44 Ur Leukocyte Esterase Neg (Negative) 06/14/18 16:44 Urine WBC (Auto) 6.0 /HPF (0.0-6.0) 06/14/18 16:44 Urine RBC (Auto) 2.0 /HPF (0.0-6.0) 06/14/18 16:44 U Epithel Cells (Auto) < 1.0 /HPF (0-13.0) 06/14/18 16:44 Urine Bacteria (Auto) 1+ /HPF (Negative) 06/14/18 16:44 Urine WBC Clumps Few /HPF 06/14/18 16:44 Hyaline Casts 1 /LPF 06/14/18 16:44 Granular Casts 3 /LPF 06/14/18 16:44 Urine Mucus Few /HPF 06/14/18 16:44 Urine Osmolality 690 Mosm/kg 06/19/18 19:31 Urine Creatinine 129.8 mg/dL (0.1-20.0) H 06/19/18 19:31 Urine Sodium 77 mmol/L 06/19/18 19:31 Urine Chloride 68.2 mmolL (110-250) L 06/19/18 19:31 Salicylates < 0.3 mg/dL (2.8-20.0) L 06/14/18 Unknown Urine Opiates Screen Presumptive negative 06/14/18 16:44 Urine Methadone Screen Presumptive negative 06/14/18 16:44 Acetaminophen < 5.0 ug/mL (10.0-30.0) L 06/14/18 Unknown Ur Barbiturates Screen Presumptive negative 06/14/18 16:44 Ur Phencyclidine Scrn Presumptive negative 06/14/18 16:44 Ur Amphetamines Screen Presumptive negative 06/14/18 16:44 U Benzodiazepines Scrn Presumptive negative 06/14/18 16:44 [place] 0.2 mmol/L (0.0-1.2) 06/22/18 11:00 Urine Cocaine Screen Presumptive negative 06/14/18 16:44 U Marijuana (THC) Screen Presumptive negative 06/14/18 16:44 Drugs of Abuse Note Disclamer 06/14/18 16:44 Plasma/Serum Alcohol < 0.01 % (0-0.07) 06/14/18 Unknown ARAM Screen Negative (Negative) 06/17/18 11:56 Proteinase 3 (PR3) Ab <1.0 AI (<1.0) 06/17/18 11:56 Myeloperoxidase Ab <1.0 AI (<1.0) 06/17/18 11:56 Glomerular Base Mem IgG <1.0 AI (<1.0) 06/17/18 11:56 Complement C3 133 mg/dL () 06/17/18 11:56 Complement C4 38 mg/dL () 06/17/18 11:56 Tot Complement (CH50) >60 U/mL (31-60) H 06/17/18 11:56 Hep Bs Antigen Non-reactive (Negative) 06/17/18 11:56 Hepatitis C Antibody Non-reactive (NonReactive) 06/17/18 11:56 HIV 1&2 Antibody Rapid Non react (Non React) 06/17/18 11:56 HIV P24 Antigen Non react (Non React) 06/17/18 11:56 - Imaging and Cardiology CT Scan - head: report reviewed (remote right lacunar infarct)
[2018-06-29] MEDS: NORVASC PO SCH (10:18)
[2018-06-29] MEDS: SODIUM CHLORIDE FLUSH SYRINGE 10 ML IV SCH ×2 (10:19→21:12)
--- NOTE | 2018-06-29 11:51 | Progress Note ---
Subjective - Reason for Consult Consult date: 06/29/18 Reason for consult: Psychiatry Follow-up - Chief Complaint Chief complaint: "Im sleeping so good" 83 year old white male who presents to the emergency room with altered mental status. Today the patient is calm and cooperative during the assessment. He stated that he is sleeping well at night. He stated that he maybe getting discharged soon. He denies SI/HI's and AVH's. He denies any side effects of his medication. Mental Status Exam - Vital signs Last Vital Signs Temp 98.8 F 06/28/18 23:54 Pulse 64 06/29/18 10:18 Resp 16 06/28/18 23:54 BP 111/66 06/29/18 10:18 Pulse Ox 96 06/28/18 23:54 - Exam Narrative exam: MSE: Appearance: calm, cooperative Behavior: regular eye contact Speech: regular rate and tone Mood: "okay" Affect: congruent to mood Thought Process: linear Thought Content: denies SI/HI's and AVH's Motor Activity: sitting up in bed Cognition: A/O x 3 Insight: appropriate Judgment: appropriate Assessment and Plan Impression: Hx of Bipolar DO per the patient and his sister Keiry Medley. Today the patient is calm and cooperative during the assessment. The patient's mental status has improved. Medical: Acute Encephalopathy. 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 No acute intracranial process noted. No change. Persistent left mastoiditis. Recommendation/Plan: Start home medication [place] 300 mg PO daily for mood. Continue Trazodone 50 mg PO HS for sleep. Acute rehab vs SNF placement when discharged. Discussed possible suicidality/medication induced darlin/priapism with patient reference Trazodone.
[2018-06-29] MEDS: ESKALITH PO SCH (15:05)
--- NOTE | 2018-06-29 19:57 | Progress Note ---
Assessment and Plan Slowly resolving encephalopathy. Etiology still unclear. We have been informed that the patient has a pacemaker which will preclude his getting an MRI scan. A repeat CT scan was unchanged from admission scan. Plan - Move forward with rehab and PT. Recommend that patient stays up in chair at least for meals. Subjective Date of service: 06/29/18 Principal diagnosis: ARF, encephalopathy Interval history: 83 year old male presented to ER 06/14, having been found down for an unknown length of time. He was lethargic and unable to communicate. He has been agitated and not responding verbally over the past few days. Agitation has resolved. He is verbally responsive now. Denies pain. But admits being thirsty. Today the patient is awake and alert with clear, fluent speech. He is conversant. He denies headache or pain. Admits working with PT and is anxious to get on with rehab. He recalls the week of his event, that he was not feeling well in a nonspecific way. He noted a lack of appetite. The last thing he remembers is lying down on his bed for a nap. He does not recall falling to the floor. Objective - Exam Narrative Exam: Awake and alert. Speech clear. conversant. 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 Sensory intact. - Vital Sign Vital Signs - 12hr 06/29/18 06/29/18 06/29/18 10:11 10:18 11:52 Temperature 97.3 F L Pulse Rate 64 60 Respiratory 20 Rate Blood Pressure 111/66 111/66 125/70 O2 Sat by Pulse 97 Oximetry 06/29/18 17:22 Temperature 98.5 F Pulse Rate 57 L Respiratory 20 Rate Blood Pressure 128/62 O2 Sat by Pulse 97 Oximetry - Laboratory Findings CBC and BMP: 06/26/18 05:37 06/26/18 05:37 Abnormal Lab Findings: Abnormal Labs 06/14/18 06/14/18 06/14/18 13:50 16:22 16:22 WBC 15.9 H RBC 5.04 H Hgb Hct RDW Plt Count Lymph % (Auto) 8.0 L [place] % (Auto) 8.9 H Lymph # [place] # 1.4 H Seg Neutrophils % 82.9 H Seg Neutrophils # 13.2 H Sodium Potassium Chloride Carbon Dioxide BUN Creatinine Glucose POC Glucose 149 H Lactic Acid 2.90 H* Calcium Phosphorus AST Troponin T Serum Total Protein Total Protein Albumin Irtys-5-Boheimrsz PEP Interpretation Triglycerides LDL Cholesterol Direct HDL Cholesterol Urine Creatinine Urine Chloride Salicylates Acetaminophen Pump Back Tot Complement (CH50) 06/14/18 06/14/18 06/14/18 16:22 Unknown Unknown WBC RBC Hgb Hct RDW Plt Count Lymph % (Auto) [place] % (Auto) Lymph # [place] # Seg Neutrophils % Seg Neutrophils # Sodium 146 H Potassium Chloride Carbon Dioxide BUN 60 H Creatinine 2.9 H Glucose 170 H POC Glucose Lactic Acid 3.40 H* Calcium 11.2 H Phosphorus AST 51 H Troponin T 0.036 H Serum Total Protein Total Protein 8.3 H Albumin Rfybn-8-Qwhjrvwdg PEP Interpretation Triglycerides 156 H LDL Cholesterol Direct 17 L HDL Cholesterol 33 L Urine Creatinine Urine Chloride Salicylates Acetaminophen Pump Back 1.5 H Tot Complement (CH50) 06/14/18 06/14/18 06/15/18 Unknown Unknown 13:38 WBC 14.3 H RBC Hgb Hct RDW 15.7 H Plt Count Lymph % (Auto) [place] % (Auto) Lymph # [place] # Seg Neutrophils % Seg Neutrophils # Sodium Potassium Chloride Carbon Dioxide BUN Creatinine Glucose POC Glucose Lactic Acid Calcium Phosphorus AST Troponin T Serum Total Protein Total Protein Albumin Sntgv-1-Jluyvdmdo PEP Interpretation Triglycerides LDL Cholesterol Direct HDL Cholesterol Urine Creatinine Urine Chloride Salicylates < 0.3 L Acetaminophen < 5.0 L Pump Back Tot Complement (CH50) 06/15/18 06/15/18 06/16/18 13:38 22:24 06:18 WBC 11.4 H RBC 5.05 H Hgb Hct RDW 15.6 H Plt Count Lymph % (Auto) 11.7 L [place] % (Auto) 8.8 H Lymph # [place] # 1.0 H Seg Neutrophils % 79.1 H Seg Neutrophils # 9.0 H Sodium 153 H Potassium Chloride 116.3 H Carbon Dioxide 21 L BUN 46 H Creatinine 1.9 H Glucose 124 H POC Glucose 113 H Lactic Acid Calcium Phosphorus AST Troponin T Serum Total Protein Total Protein Albumin Byrxy-0-Lkguusabv PEP Interpretation Triglycerides LDL Cholesterol Direct HDL Cholesterol Urine Creatinine Urine Chloride Salicylates Acetaminophen Pump Back Tot Complement (CH50) 06/16/18 06/17/18 06/17/18 06:18 06:55 06:55 WBC RBC 5.13 H Hgb 15.4 H Hct 46.4 H RDW 15.8 H Plt Count Lymph % (Auto) [place] % (Auto) 8.5 H Lymph # [place] # Seg Neutrophils % 74.7 H Seg Neutrophils # Sodium 155 H 154 H Potassium 3.4 L Chloride 117.3 H 116.2 H Carbon Dioxide 21 L BUN 42 H 31 H Creatinine 1.8 H Glucose 128 H 120 H POC Glucose Lactic Acid Calcium Phosphorus 2.10 L AST Troponin T Serum Total Protein Total Protein Albumin Skqgc-2-Yfghygbzb PEP Interpretation Triglycerides LDL Cholesterol Direct HDL Cholesterol Urine Creatinine Urine Chloride Salicylates Acetaminophen Pump Back Tot Complement (CH50) 06/17/18 06/17/18 06/18/18 11:56 11:56 06:28 WBC RBC 5.12 H Hgb Hct 47.1 H RDW 15.7 H Plt Count Lymph % (Auto) [place] % (Auto) 9.0 H Lymph # 1.1 L [place] # Seg Neutrophils % 74.9 H Seg Neutrophils # Sodium Potassium Chloride Carbon Dioxide BUN Creatinine Glucose POC Glucose Lactic Acid Calcium Phosphorus AST Troponin T Serum Total Protein 6.0 L Total Protein Albumin 3.3 L Mzxlv-3-Dizssxaxn 1.0 H PEP Interpretation see below H Triglycerides LDL Cholesterol Direct HDL Cholesterol Urine Creatinine Urine Chloride Salicylates Acetaminophen Pump Back Tot Complement (CH50) >60 H 06/18/18 06/19/18 06/19/18 06:28 01:23 06:23 WBC RBC Hgb Hct RDW 15.6 H Plt Count Lymph % (Auto) [place] % (Auto) 8.8 H Lymph # [place] # 0.9 H Seg Neutrophils % 73.3 H Seg Neutrophils # Sodium 156 H 150 H Potassium Chloride 118.4 H Carbon Dioxide BUN 29 H Creatinine Glucose 132 H POC Glucose Lactic Acid Calcium Phosphorus AST Troponin T Serum Total Protein Total Protein Albumin Hxvxx-9-Dkjdvyygc PEP Interpretation Triglycerides LDL Cholesterol Direct HDL Cholesterol Urine Creatinine Urine Chloride Salicylates Acetaminophen Pump Back Tot Complement (CH50) 06/19/18 06/19/18 06/19/18 06:23 11:26 16:59 WBC RBC Hgb Hct RDW Plt Count Lymph % (Auto) [place] % (Auto) Lymph # [place] # Seg Neutrophils % Seg Neutrophils # Sodium 152 H Potassium 3.5 L Chloride 114.5 H Carbon Dioxide BUN 24 H Creatinine Glucose 144 H POC Glucose 143 H 131 H Lactic Acid Calcium Phosphorus 2.40 L AST Troponin T Serum Total Protein Total Protein Albumin Seecp-1-Hgfsshony PEP Interpretation Triglycerides LDL Cholesterol Direct HDL Cholesterol Urine Creatinine Urine Chloride Salicylates Acetaminophen Pump Back Tot Complement (CH50) 06/19/18 06/20/18 06/20/18 19:31 06:18 06:18 WBC RBC Hgb Hct RDW Plt Count 139 L Lymph % (Auto) [place] % (Auto) 8.6 H Lymph # [place] # Seg Neutrophils % 72.8 H Seg Neutrophils # Sodium 146 H Potassium Chloride 110.3 H Carbon Dioxide BUN Creatinine Glucose 115 H POC Glucose Lactic Acid Calcium Phosphorus AST Troponin T Serum Total Protein Total Protein Albumin Furhv-5-Zbaznquvi PEP Interpretation Triglycerides LDL Cholesterol Direct HDL Cholesterol Urine Creatinine 129.8 H Urine Chloride 68.2 L Salicylates Acetaminophen Pump Back Tot Complement (CH50) 06/20/18 06/20/18 06/20/18 06:43 11:58 17:07 WBC RBC Hgb Hct RDW Plt Count Lymph % (Auto) [place] % (Auto) Lymph # [place] # Seg Neutrophils % Seg Neutrophils # Sodium Potassium Chloride Carbon Dioxide BUN Creatinine Glucose POC Glucose 107 H 157 H 120 H Lactic Acid Calcium Phosphorus AST Troponin T Serum Total Protein Total Protein Albumin Lzedb-3-Yxhbpsckz PEP Interpretation Triglycerides LDL Cholesterol Direct HDL Cholesterol Urine Creatinine Urine Chloride Salicylates Acetaminophen Pump Back Tot Complement (CH50) 06/21/18 06/21/18 06/21/18 06:19 11:17 16:00 WBC RBC 5.23 H Hgb 15.7 H Hct 48.1 H RDW 15.8 H Plt Count 134 L Lymph % (Auto) [place] % (Auto) 9.9 H Lymph # [place] # 0.9 H Seg Neutrophils % 70.2 H Seg Neutrophils # Sodium Potassium Chloride Carbon Dioxide BUN Creatinine Glucose POC Glucose 155 H 127 H Lactic Acid Calcium Phosphorus AST Troponin T Serum Total Protein Total Protein Albumin Agdqp-6-Dftqwiecy PEP Interpretation Triglycerides LDL Cholesterol Direct HDL Cholesterol Urine Creatinine Urine Chloride Salicylates Acetaminophen Pump Back Tot Complement (CH50) 06/21/18 06/22/18 06/22/18 21:46 06:51 06:57 WBC RBC 5.07 H Hgb Hct RDW 15.4 H Plt Count Lymph % (Auto) [place] % (Auto) 12.1 H Lymph # [place] # 1.1 H Seg Neutrophils % 70.8 H Seg Neutrophils # Sodium Potassium Chloride Carbon Dioxide BUN Creatinine Glucose POC Glucose 108 H 111 H Lactic Acid Calcium Phosphorus AST Troponin T Serum Total Protein Total Protein Albumin Sqphn-6-Jvzjuczox PEP Interpretation Triglycerides LDL Cholesterol Direct HDL Cholesterol Urine Creatinine Urine Chloride Salicylates Acetaminophen Pump Back Tot Complement (CH50) 06/22/18 06/22/18 06/22/18 06:57 12:01 15:59 WBC RBC Hgb Hct RDW Plt Count Lymph % (Auto) [place] % (Auto) Lymph # [place] # Seg Neutrophils % Seg Neutrophils # Sodium Potassium 3.4 L Chloride Carbon Dioxide BUN Creatinine Glucose 117 H POC Glucose 126 H 168 H Lactic Acid Calcium Phosphorus AST Troponin T Serum Total Protein Total Protein Albumin Ilhms-1-Bvkkfccej PEP Interpretation Triglycerides LDL Cholesterol Direct HDL Cholesterol Urine Creatinine Urine Chloride Salicylates Acetaminophen Pump Back Tot Complement (CH50) 06/22/18 06/22/18 06/23/18 17:48 21:38 05:18 WBC RBC Hgb Hct RDW Plt Count Lymph % (Auto) [place] % (Auto) Lymph # [place] # Seg Neutrophils % Seg Neutrophils # Sodium Potassium Chloride Carbon Dioxide BUN Creatinine Glucose POC Glucose 110 H 110 H 106 H Lactic Acid Calcium Phosphorus AST Troponin T Serum Total Protein Total Protein Albumin Sgigd-7-Ykbnyfjid PEP Interpretation Triglycerides LDL Cholesterol Direct HDL Cholesterol Urine Creatinine Urine Chloride Salicylates Acetaminophen Pump Back Tot Complement (CH50) 06/23/18 06/23/18 06/23/18 07:25 07:25 11:10 WBC RBC 5.28 H Hgb 15.6 H Hct 47.5 H RDW Plt Count Lymph % (Auto) [place] % (Auto) 12.9 H Lymph # [place] # 1.1 H Seg Neutrophils % Seg Neutrophils # Sodium Potassium 3.2 L Chloride Carbon Dioxide BUN Creatinine Glucose 106 H POC Glucose 188 H Lactic Acid Calcium Phosphorus AST Troponin T Serum Total Protein Total Protein Albumin Zmomb-5-Eemykwvql PEP Interpretation Triglycerides LDL Cholesterol Direct HDL Cholesterol Urine Creatinine Urine Chloride Salicylates Acetaminophen Pump Back Tot Complement (CH50) 06/23/18 06/23/18 06/24/18 15:44 21:35 10:55 WBC RBC Hgb Hct RDW Plt Count Lymph % (Auto) [place] % (Auto) Lymph # [place] # Seg Neutrophils % Seg Neutrophils # Sodium Potassium Chloride Carbon Dioxide BUN Creatinine Glucose POC Glucose 157 H 111 H 137 H Lactic Acid Calcium Phosphorus AST Troponin T Serum Total Protein Total Protein Albumin Ppzyt-8-Qbhtwmvhi PEP Interpretation Triglycerides LDL Cholesterol Direct HDL Cholesterol Urine Creatinine Urine Chloride Salicylates Acetaminophen Pump Back Tot Complement (CH50) 06/26/18 06/26/18 06/26/18 05:37 05:37 11:43 WBC RBC 5.14 H Hgb 15.4 H Hct 46.5 H RDW 15.4 H Plt Count Lymph % (Auto) [place] % (Auto) Lymph # [place] # Seg Neutrophils % Seg Neutrophils # Sodium Potassium Chloride Carbon Dioxide BUN Creatinine Glucose 101 H POC Glucose 162 H Lactic Acid Calcium Phosphorus AST Troponin T Serum Total Protein Total Protein Albumin Xxgbp-1-Nzqkjfebi PEP Interpretation Triglycerides LDL Cholesterol Direct HDL Cholesterol Urine Creatinine Urine Chloride Salicylates Acetaminophen Pump Back Tot Complement (CH50) 06/26/18 06/26/18 16:17 21:24 WBC RBC Hgb Hct RDW Plt Count Lymph % (Auto) [place] % (Auto) Lymph # [place] # Seg Neutrophils % Seg Neutrophils # Sodium Potassium Chloride Carbon Dioxide BUN Creatinine Glucose POC Glucose 111 H 106 H Lactic Acid Calcium Phosphorus AST Troponin T Serum Total Protein Total Protein Albumin Lhuzm-2-Mnaqsjhgb PEP Interpretation Triglycerides LDL Cholesterol Direct HDL Cholesterol Urine Creatinine Urine Chloride Salicylates Acetaminophen Pump Back Tot Complement (CH50)
[2018-06-29] MEDS: DESYREL PO SCH (21:12)
--- NOTE | 2018-06-30 08:53 | Progress Note ---
Assessment and Plan Assessment and plan: Mr. Lobo is 83 yo man with a history of schizophrenia and prior etoh abuse who presented with AMS by EMS. Patient doesn't drink alcohol now. He was found on the bathroom floor lethargic and not responding. We really don' t know how long he was on the floor or Why he fell? Pt was found to have undifferentiated encephalopathy, acute renal failure and mild lithium toxicity. 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 No acute intracranial findings. 2. Left mastoid sinus disease. 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 No acute intracranial process noted. No change. Persistent left mastoiditis. 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 SIRS without infection found on admission, negative cxr and ua [place] toxicity resolved, repeat levels were normal h/o schizophrenia: Psych is following Hypernatremia: Renal is following, Hypokalemia: replace DVT prophylaxis: SCD to BLE while in bed. Advance care planning: full code Disposition: continue inpatient care, awaiting placement, d/w case management, Patient triggered a Level 2 History Interval history: Patient was seen and evaluated this morning, Patient was calm and cooperative. Hospitalist Physical - Physical exam Narrative exam: Not in cardiopulmonary distress. The patient appeared well nourished and normally developed. Vital signs as documented. Head exam is unremarkable. No scleral icterus . Neck is without jugular venous distension, thyromegaly, or carotid bruits. Lungs are clear to auscultation. Cardiac exam reveals regular rate and Rhythm. First and second heart sounds normal. No murmurs, rubs or gallops. Abdominal exam reveals normal bowel sounds, no masses, no organomegaly and no aortic enlargement. Extremities are nonedematous and both femoral and pedal pulses are normal. PROCTOLOGIST: Alert and oriented. Calm and cooperative. - Constitutional Vitals: Temp Pulse Resp BP Pulse Ox 97.9 F 60 20 123/61 97 07/31/18 05:50 06/30/18 05:50 06/30/18 05:50 06/30/18 05:50 06/30/18 05:50 General appearance: Present: well-nourished, other (restraint) Results - Labs CBC & Chem 7: 06/26/18 05:37 06/26/18 05:37 Labs: Laboratory Last Values WBC 5.6 K/mm3 (4.5-11.0) 06/26/18 05:37 RBC 5.14 M/mm3 (3.65-5.03) H 06/26/18 05:37 Hgb 15.4 gm/dl (11.8-15.2) H 06/26/18 05:37 Hct 46.5 % (35.5-45.6) H 06/26/18 05:37 MCV 90 fl (84-94) 06/26/18 05:37 MCH 30 pg (28-32) 06/26/18 05:37 MCHC 33 % (32-34) 06/26/18 05:37 RDW 15.4 % (13.2-15.2) H 06/26/18 05:37 Plt Count 161 K/mm3 (140-440) 06/26/18 05:37 Lymph % (Auto) 17.5 % (13.4-35.0) 06/23/18 07:25 [place] % (Auto) 12.9 % (0.0-7.3) H 06/23/18 07:25 Eos % (Auto) 1.6 % (0.0-4.3) 06/23/18 07:25 Baso % (Auto) 0.4 % (0.0-1.8) 06/23/18 07:25 Lymph # 1.5 K/mm3 (1.2-5.4) 06/23/18 07:25 [place] # 1.1 K/mm3 (0.0-0.8) H 06/23/18 07:25 Eos # 0.1 K/mm3 (0.0-0.4) 06/23/18 07:25 Baso # 0.0 K/mm3 (0.0-0.1) 06/23/18 07:25 Seg Neutrophils % 67.6 % (40.0-70.0) 06/23/18 07:25 Seg Neutrophils # 5.7 K/mm3 (1.8-7.7) 06/23/18 07:25 Sodium 143 mmol/L (137-145) 06/26/18 05:37 Potassium 4.1 mmol/L (3.6-5.0) D 06/26/18 05:37 Chloride 104.6 mmol/L (98-107) 06/26/18 05:37 Carbon Dioxide 27 mmol/L (22-30) 06/26/18 05:37 Anion Gap 16 mmol/L 06/26/18 05:37 BUN 12 mg/dL (9-20) 06/26/18 05:37 Creatinine 1.0 mg/dL (0.8-1.5) 06/26/18 05:37 Estimated GFR > 60 ml/min 06/26/18 05:37 BUN/Creatinine Ratio 12 % 06/26/18 05:37 Glucose 101 mg/dL (75-100) H 06/26/18 05:37 POC Glucose 106 (70-105) H 06/26/18 21:24 Lactic Acid 1.20 mmol/L (0.7-2.0) 06/15/18 13:38 Calcium 9.1 mg/dL (8.4-10.2) 06/26/18 05:37 Phosphorus 2.90 mg/dL (2.5-4.5) 06/22/18 06:57 Total Bilirubin 0.80 mg/dL (0.1-1.2) 06/14/18 Unknown AST 51 units/L (5-40) H 06/14/18 Unknown ALT 24 units/L (7-56) 06/14/18 Unknown Alkaline Phosphatase 110 units/L (35-129) 06/14/18 Unknown Ammonia 44.0 umol/L (25-60) 06/17/18 18:16 Troponin T 0.036 ng/mL (0.00-0.029) H 06/14/18 Unknown Serum Total Protein 6.0 g/dL (6.1-8.1) L 06/17/18 11:56 Total Protein 8.3 g/dL (6.3-8.2) H 06/14/18 Unknown Albumin 3.3 g/dL (3.8-4.8) L 06/17/18 11:56 Albumin/Globulin Ratio 1.5 % 06/14/18 Unknown Cibqq-5-Qzoqcbxmb 0.3 g/dL (0.2-0.3) 06/17/18 11:56 Xfwuh-9-Pcjiunnrk 1.0 g/dL (0.5-0.9) H 06/17/18 11:56 Beta Globulins 0.2 g/dL (0.2-0.5) 06/17/18 11:56 Gamma Globulins 0.8 g/dL (0.8-1.7) 06/17/18 11:56 Abnorm Protein Band 1 see below 06/17/18 11:56 Abnorm Protein Band 2 (()) 06/17/18 11:56 Abnorm Protein Band 3 (()) 06/17/18 11:56 PEP Interpretation see below H 06/17/18 11:56 Triglycerides 156 mg/dL (2-149) H 06/14/18 Unknown Cholesterol 73 mg/dL (50-199) 06/14/18 Unknown LDL Cholesterol Direct 17 mg/dL (50-130) L 06/14/18 Unknown HDL Cholesterol 33 mg/dL (40-59) L 06/14/18 Unknown Cholesterol/HDL Ratio 2.21 % 06/14/18 Unknown TSH 1.910 mlU/mL (0.270-4.200) 06/17/18 18:16 Free T4 1.14 ng/dL (0.76-1.46) 06/17/18 18:16 Urine Color Yellow (Yellow) 06/14/18 16:44 Urine Turbidity Clear (Clear) 06/14/18 16:44 Urine pH 5.0 (5.0-7.0) 06/14/18 16:44 Ur Specific [place] 1.020 (1.003-1.030) 06/14/18 16:44 Urine Protein 100 mg/dl mg/dL (Negative) 06/14/18 16:44 Urine Glucose (UA) 50 mg/dL (Negative) 06/14/18 16:44 Urine Ketones Tr mg/dL (Negative) 06/14/18 16:44 Urine Blood Lg (Negative) 06/14/18 16:44 Urine Nitrite Neg (Negative) 06/14/18 16:44 Urine Bilirubin Neg (Negative) 06/14/18 16:44 Urine Urobilinogen < 2.0 mg/dL (<2.0) 06/14/18 16:44 Ur Leukocyte Esterase Neg (Negative) 06/14/18 16:44 Urine WBC (Auto) 6.0 /HPF (0.0-6.0) 06/14/18 16:44 Urine RBC (Auto) 2.0 /HPF (0.0-6.0) 06/14/18 16:44 U Epithel Cells (Auto) < 1.0 /HPF (0-13.0) 06/14/18 16:44 Urine Bacteria (Auto) 1+ /HPF (Negative) 06/14/18 16:44 Urine WBC Clumps Few /HPF 06/14/18 16:44 Hyaline Casts 1 /LPF 06/14/18 16:44 Granular Casts 3 /LPF 06/14/18 16:44 Urine Mucus Few /HPF 06/14/18 16:44 Urine Osmolality 690 Mosm/kg 06/19/18 19:31 Urine Creatinine 129.8 mg/dL (0.1-20.0) H 06/19/18 19:31 Urine Sodium 77 mmol/L 06/19/18 19:31 Urine Chloride 68.2 mmolL (110-250) L 06/19/18 19:31 Salicylates < 0.3 mg/dL (2.8-20.0) L 06/14/18 Unknown Urine Opiates Screen Presumptive negative 06/14/18 16:44 Urine Methadone Screen Presumptive negative 06/14/18 16:44 Acetaminophen < 5.0 ug/mL (10.0-30.0) L 06/14/18 Unknown Ur Barbiturates Screen Presumptive negative 06/14/18 16:44 Ur Phencyclidine Scrn Presumptive negative 06/14/18 16:44 Ur Amphetamines Screen Presumptive negative 06/14/18 16:44 U Benzodiazepines Scrn Presumptive negative 06/14/18 16:44 [place] 0.2 mmol/L (0.0-1.2) 06/22/18 11:00 Urine Cocaine Screen Presumptive negative 06/14/18 16:44 U Marijuana (THC) Screen Presumptive negative 06/14/18 16:44 Drugs of Abuse Note Disclamer 06/14/18 16:44 Plasma/Serum Alcohol < 0.01 % (0-0.07) 06/14/18 Unknown ARAM Screen Negative (Negative) 06/17/18 11:56 Proteinase 3 (PR3) Ab <1.0 AI (<1.0) 06/17/18 11:56 Myeloperoxidase Ab <1.0 AI (<1.0) 06/17/18 11:56 Glomerular Base Mem IgG <1.0 AI (<1.0) 06/17/18 11:56 Complement C3 133 mg/dL () 06/17/18 11:56 Complement C4 38 mg/dL () 06/17/18 11:56 Tot Complement (CH50) >60 U/mL (31-60) H 06/17/18 11:56 Hep Bs Antigen Non-reactive (Negative) 06/17/18 11:56 Hepatitis C Antibody Non-reactive (NonReactive) 06/17/18 11:56 HIV 1&2 Antibody Rapid Non react (Non React) 06/17/18 11:56 HIV P24 Antigen Non react (Non React) 06/17/18 11:56
[2018-06-30] MEDS: NORVASC PO SCH (09:43)
[2018-06-30] MEDS: ESKALITH PO SCH (09:43)
[2018-06-30] MEDS: SODIUM CHLORIDE FLUSH SYRINGE 10 ML IV SCH ×2 (09:44→21:28)
--- NOTE | 2018-06-30 10:51 | Progress Note ---
Subjective - Reason for Consult Consult date: 06/30/18 Reason for consult: Psychiatry Follow-up - Chief Complaint Chief complaint: "I'm having a great day" 83 year old white male who presents to the emergency room with altered mental status. Today the patient is calm and cooperative during the assessment. He stated that he will be discharged once placement is approved. He denies SI/HI's and AVH's. He denies any side effects of his medications. Mental Status Exam - Vital signs Last Vital Signs Temp 97.9 F 06/30/18 05:50 Pulse 60 06/30/18 05:50 Resp 20 06/30/18 05:50 BP 123/61 06/30/18 05:50 Pulse Ox 97 06/30/18 05:50 - Exam Narrative exam: MSE: Appearance: calm, cooperative Behavior: regular eye contact Speech: regular rate and tone Mood: "okay" Affect: congruent to mood Thought Process: linear Thought Content: denies SI/HI's and AVH's Motor Activity: sitting up in bed Cognition: A/O x 3 Insight: appropriate Judgment: appropriate Assessment and Plan Impression: Hx of Bipolar DO per the patient and his sister Keiry Medley. Today the patient is calm and cooperative during the assessment. Medical: Acute Encephalopathy. 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 No acute intracranial process noted. No change. Persistent left mastoiditis. Recommendation/Plan: Continue home medication [place] 300 mg PO daily for mood and Trazodone 50 mg PO HS for sleep. Acute rehab vs SNF placement when discharged. Discussed possible suicidality/medication induced darlin/priapism with patient reference Trazodone.
[2018-06-30] MEDS: DESYREL PO SCH (21:27)
[2018-07-01] MEDS: NORVASC PO SCH (10:34)
[2018-07-01] MEDS: ESKALITH PO SCH (10:34)
[2018-07-01] MEDS: SODIUM CHLORIDE FLUSH SYRINGE 10 ML IV SCH (10:35)
--- NOTE | 2018-07-01 12:56 | Progress Note ---
Assessment and Plan Assessment and plan: Mr. Lobo is 83 yo man with a history of schizophrenia and prior etoh abuse who presented with AMS by EMS. Patient doesn't drink alcohol now. He was found on the bathroom floor lethargic and not responding. We really don' t know how long he was on the floor or Why he fell? Pt was found to have undifferentiated encephalopathy, acute renal failure and mild lithium toxicity. 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 No acute intracranial findings. 2. Left mastoid sinus disease. 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 No acute intracranial process noted. No change. Persistent left mastoiditis. 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 SIRS without infection found on admission, negative cxr and ua [place] toxicity resolved, repeat levels were normal h/o schizophrenia: Psych is following Hypernatremia: Renal is following, Hypokalemia: replace DVT prophylaxis: SCD to BLE while in bed. Advance care planning: full code Disposition: continue inpatient care, awaiting placement, d/w case management, Patient triggered a Level 2 History Interval history: Patient was seen and evaluated this morning, Patient was calm and cooperative. Patient said he was sleeping well overnight. Hospitalist Physical - Physical exam Narrative exam: Not in cardiopulmonary distress. The patient appeared well nourished and normally developed. Vital signs as documented. Head exam is unremarkable. No scleral icterus . Neck is without jugular venous distension, thyromegaly, or carotid bruits. Lungs are clear to auscultation. Cardiac exam reveals regular rate and Rhythm. First and second heart sounds normal. No murmurs, rubs or gallops. Abdominal exam reveals normal bowel sounds, no masses, no organomegaly and no aortic enlargement. Extremities are nonedematous and both femoral and pedal pulses are normal. 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 Calm and cooperative. - Constitutional Vitals: Temp Pulse Resp BP Pulse Ox 98.0 F 60 20 135/70 98 07/01/18 05:53 07/01/18 05:53 07/01/18 05:53 07/01/18 10:34 07/01/18 05:53 General appearance: Present: well-nourished, other (restraint) Results - Labs CBC & Chem 7: 06/26/18 05:37 06/26/18 05:37 Labs: Laboratory Last Values WBC 5.6 K/mm3 (4.5-11.0) 06/26/18 05:37 RBC 5.14 M/mm3 (3.65-5.03) H 06/26/18 05:37 Hgb 15.4 gm/dl (11.8-15.2) H 06/26/18 05:37 Hct 46.5 % (35.5-45.6) H 06/26/18 05:37 MCV 90 fl (84-94) 06/26/18 05:37 MCH 30 pg (28-32) 06/26/18 05:37 MCHC 33 % (32-34) 06/26/18 05:37 RDW 15.4 % (13.2-15.2) H 06/26/18 05:37 Plt Count 161 K/mm3 (140-440) 06/26/18 05:37 Lymph % (Auto) 17.5 % (13.4-35.0) 06/23/18 07:25 [place] % (Auto) 12.9 % (0.0-7.3) H 06/23/18 07:25 Eos % (Auto) 1.6 % (0.0-4.3) 06/23/18 07:25 Baso % (Auto) 0.4 % (0.0-1.8) 06/23/18 07:25 Lymph # 1.5 K/mm3 (1.2-5.4) 06/23/18 07:25 [place] # 1.1 K/mm3 (0.0-0.8) H 06/23/18 07:25 Eos # 0.1 K/mm3 (0.0-0.4) 06/23/18 07:25 Baso # 0.0 K/mm3 (0.0-0.1) 06/23/18 07:25 Seg Neutrophils % 67.6 % (40.0-70.0) 06/23/18 07:25 Seg Neutrophils # 5.7 K/mm3 (1.8-7.7) 06/23/18 07:25 Sodium 143 mmol/L (137-145) 06/26/18 05:37 Potassium 4.1 mmol/L (3.6-5.0) D 06/26/18 05:37 Chloride 104.6 mmol/L (98-107) 06/26/18 05:37 Carbon Dioxide 27 mmol/L (22-30) 06/26/18 05:37 Anion Gap 16 mmol/L 06/26/18 05:37 BUN 12 mg/dL (9-20) 06/26/18 05:37 Creatinine 1.0 mg/dL (0.8-1.5) 06/26/18 05:37 Estimated GFR > 60 ml/min 06/26/18 05:37 BUN/Creatinine Ratio 12 % 06/26/18 05:37 Glucose 101 mg/dL (75-100) H 06/26/18 05:37 POC Glucose 106 (70-105) H 06/26/18 21:24 Lactic Acid 1.20 mmol/L (0.7-2.0) 06/15/18 13:38 Calcium 9.1 mg/dL (8.4-10.2) 06/26/18 05:37 Phosphorus 2.90 mg/dL (2.5-4.5) 06/22/18 06:57 Total Bilirubin 0.80 mg/dL (0.1-1.2) 06/14/18 Unknown AST 51 units/L (5-40) H 06/14/18 Unknown ALT 24 units/L (7-56) 06/14/18 Unknown Alkaline Phosphatase 110 units/L (35-129) 06/14/18 Unknown Ammonia 44.0 umol/L (25-60) 06/17/18 18:16 Troponin T 0.036 ng/mL (0.00-0.029) H 06/14/18 Unknown Serum Total Protein 6.0 g/dL (6.1-8.1) L 06/17/18 11:56 Total Protein 8.3 g/dL (6.3-8.2) H 06/14/18 Unknown Albumin 3.3 g/dL (3.8-4.8) L 06/17/18 11:56 Albumin/Globulin Ratio 1.5 % 06/14/18 Unknown Uxclv-4-Lwlyaycqe 0.3 g/dL (0.2-0.3) 06/17/18 11:56 Byvxw-0-Oeskpbzyq 1.0 g/dL (0.5-0.9) H 06/17/18 11:56 Beta Globulins 0.2 g/dL (0.2-0.5) 06/17/18 11:56 Gamma Globulins 0.8 g/dL (0.8-1.7) 06/17/18 11:56 Abnorm Protein Band 1 see below 06/17/18 11:56 Abnorm Protein Band 2 (()) 06/17/18 11:56 Abnorm Protein Band 3 (()) 06/17/18 11:56 PEP Interpretation see below H 06/17/18 11:56 Triglycerides 156 mg/dL (2-149) H 06/14/18 Unknown Cholesterol 73 mg/dL (50-199) 06/14/18 Unknown LDL Cholesterol Direct 17 mg/dL (50-130) L 06/14/18 Unknown HDL Cholesterol 33 mg/dL (40-59) L 06/14/18 Unknown Cholesterol/HDL Ratio 2.21 % 06/14/18 Unknown TSH 1.910 mlU/mL (0.270-4.200) 06/17/18 18:16 Free T4 1.14 ng/dL (0.76-1.46) 06/17/18 18:16 Urine Color Yellow (Yellow) 06/14/18 16:44 Urine Turbidity Clear (Clear) 06/14/18 16:44 Urine pH 5.0 (5.0-7.0) 06/14/18 16:44 Ur Specific Fred 1.020 (1.003-1.030) 06/14/18 16:44 Urine Protein 100 mg/dl mg/dL (Negative) 06/14/18 16:44 Urine Glucose (UA) 50 mg/dL (Negative) 06/14/18 16:44 Urine Ketones Tr mg/dL (Negative) 06/14/18 16:44 Urine Blood Lg (Negative) 06/14/18 16:44 Urine Nitrite Neg (Negative) 06/14/18 16:44 Urine Bilirubin Neg (Negative) 06/14/18 16:44 Urine Urobilinogen < 2.0 mg/dL (<2.0) 06/14/18 16:44 Ur Leukocyte Esterase Neg (Negative) 06/14/18 16:44 Urine WBC (Auto) 6.0 /HPF (0.0-6.0) 06/14/18 16:44 Urine RBC (Auto) 2.0 /HPF (0.0-6.0) 06/14/18 16:44 U Epithel Cells (Auto) < 1.0 /HPF (0-13.0) 06/14/18 16:44 Urine Bacteria (Auto) 1+ /HPF (Negative) 06/14/18 16:44 Urine WBC Clumps Few /HPF 06/14/18 16:44 Hyaline Casts 1 /LPF 06/14/18 16:44 Granular Casts 3 /LPF 06/14/18 16:44 Urine Mucus Few /HPF 06/14/18 16:44 Urine Osmolality 690 Mosm/kg 06/19/18 19:31 Urine Creatinine 129.8 mg/dL (0.1-20.0) H 06/19/18 19:31 Urine Sodium 77 mmol/L 06/19/18 19:31 Urine Chloride 68.2 mmolL (110-250) L 06/19/18 19:31 Salicylates < 0.3 mg/dL (2.8-20.0) L 06/14/18 Unknown Urine Opiates Screen Presumptive negative 06/14/18 16:44 Urine Methadone Screen Presumptive negative 06/14/18 16:44 Acetaminophen < 5.0 ug/mL (10.0-30.0) L 06/14/18 Unknown Ur Barbiturates Screen Presumptive negative 06/14/18 16:44 Ur Phencyclidine Scrn Presumptive negative 06/14/18 16:44 Ur Amphetamines Screen Presumptive negative 06/14/18 16:44 U Benzodiazepines Scrn Presumptive negative 06/14/18 16:44 [place] 0.2 mmol/L (0.0-1.2) 06/22/18 11:00 Urine Cocaine Screen Presumptive negative 06/14/18 16:44 U Marijuana (THC) Screen Presumptive negative 06/14/18 16:44 Drugs of Abuse Note Disclamer 06/14/18 16:44 Plasma/Serum Alcohol < 0.01 % (0-0.07) 06/14/18 Unknown ARAM Screen Negative (Negative) 06/17/18 11:56 Proteinase 3 (PR3) Ab <1.0 AI (<1.0) 06/17/18 11:56 Myeloperoxidase Ab <1.0 AI (<1.0) 06/17/18 11:56 Glomerular Base Mem IgG <1.0 AI (<1.0) 06/17/18 11:56 Complement C3 133 mg/dL () 06/17/18 11:56 Complement C4 38 mg/dL () 06/17/18 11:56 Tot Complement (CH50) >60 U/mL (31-60) H 06/17/18 11:56 Hep Bs Antigen Non-reactive (Negative) 06/17/18 11:56 Hepatitis C Antibody Non-reactive (NonReactive) 06/17/18 11:56 HIV 1&2 Antibody Rapid Non react (Non React) 06/17/18 11:56 HIV P24 Antigen Non react (Non React) 06/17/18 11:56
--- NOTE | 2018-07-01 15:51 | Discharge Summary ---
Providers - Providers Date of Admission: 06/14/18 18:46 Date of discharge: 07/01/18 Attending physician: JACOB OZUNA MD 06/15/18 14:55 Consult to Mental Health [CONS] Routine Reason For Exam: schizophrenia Place consult to:: mental health Notified:: yes Phone number called:: [phone] Was contact made?: Yes Time called:: 15:37 Comment:: no answer at [phone] made several attempts 06/16/18 10:08 Consult to Physician [CONS] Routine Comment: Consulting Provider: KYM DUTTA Physician Instructions: Reason For Exam: ARF 06/17/18 13:15 Consult to Physician [CONS] Routine Comment: Consulting Provider: ALLYSSA MOCTEZUMA Physician Instructions: Reason For Exam: AMS 06/18/18 13:29 Speech Therapy Evaluation and Treat [CONS] Stat Reason For Exam: dysphagia 06/19/18 14:09 Physical Therapy Evaluation and Treat [CONS] Routine Comment: Reason For Exam: Pt. with history of encephalopathy, now resolving. 06/21/18 13:53 Consult to Case Management [CONS] Routine Services Needed at Discharge: Lining Brusher Notified:: case therapist Additional Physician Instructions: SNF Placement as per family request: Please send out Marv. 06/25/18 08:09 Consult to Wound/ET Nurse [CONS] Urgent Reason For Exam: right and left ankle Primary care physician: MUSEUM REGISTRAR Hospitalization Condition: Critical Disposition: [id number]/[place]-03 SNF W [facility] CERT Time spent for discharge: 34 minutes - Discharge Diagnoses (1) Altered mental status Status: Acute Qualifiers: Altered mental status type: unspecified Qualified Code(s): R41.82 - Altered mental status, unspecified (2) Elevated lithium level Status: Acute (3) Encephalopathy Status: Acute Core Measure Documentation - Palliative Care Palliative Care/ Comfort Measures: Not Applicable - Core Measures Any of the following diagnoses?: none Exam - Physical Exam Narrative exam: Not in cardiopulmonary distress. The patient appeared well nourished and normally developed. Vital signs as documented. Head exam is unremarkable. No scleral icterus . Neck is without jugular venous distension, thyromegaly, or carotid bruits. Lungs are clear to auscultation. Cardiac exam reveals regular rate and Rhythm. First and second heart sounds normal. No murmurs, rubs or gallops. Abdominal exam reveals normal bowel sounds, no masses, no organomegaly and no aortic enlargement. Extremities are nonedematous and both femoral and pedal pulses are normal. 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 Calm and cooperative. - Constitutional Vitals: Temp Pulse Resp BP Pulse Ox 97.3 F L 60 22 176/70 97 07/01/18 11:00 07/01/18 11:00 07/01/18 11:00 07/01/18 11:07/01/18 11:00 Plan Activity: no restrictions Weight Bearing Status: Full Weight Bearing Diet: low salt Additional Instructions: Follow up at [facility] in 1-2 weeks Follow up with: PRIMARY CAREMD [Primary Care Provider] - 3-5 Days
[2018-07-01 16:51] VITALS: BP 146/66
--- NOTE | 2018-07-01 16:56 | Progress Note ---
Assessment and Plan Slowly resolving encephalopathy. Etiology still unclear. We have been informed that the patient has a pacemaker which will preclude his getting an MRI scan. A repeat CT scan was unchanged from admission scan, with chronic disease. This may have been an ischemic event that is difficult to detect. Plan - Move forward with rehab and PT. Recommend that patient stays up in chair at least for meals. Subjective Date of service: 07/01/18 Principal diagnosis: ARF, encephalopathy Interval history: 83 year old male presented to ER 06/14, having been found down for an unknown length of time. He was lethargic and unable to communicate. He has been agitated and not responding verbally over the past few days. Agitation has resolved. He is verbally responsive now. Denies pain. But admits being thirsty. Today the patient is awake and alert with clear, fluent speech. He is conversant. He denies headache or pain. Admits working with PT and is anxious to get on with rehab. He recalls the week of his event, that he was not feeling well in a nonspecific way. He noted a lack of appetite. The last thing he remembers is lying down on his bed for a nap. He does not recall falling to the floor. The patient is looking forward to rehab. He is feeling well and anxious to try to get back to baseline again. Objective - Exam Narrative Exam: Awake and alert. Speech clear. conversant. Oriented. 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 Sensory intact. - Vital Sign Vital Signs - 12hr 07/01/18 07/01/18 07/01/18 05:53 10:28 10:34 Temperature 98.0 F Pulse Rate 60 64 Respiratory 20 18 Rate Blood Pressure 131/55 135/70 135/70 O2 Sat by Pulse 98 97 Oximetry 07/01/18 07/01/18 11:00 15:50 Temperature 97.3 F L 97.7 F Pulse Rate 60 60 Respiratory 22 20 Rate Blood Pressure 176/70 146/66 O2 Sat by Pulse 97 96 Oximetry - Laboratory Findings CBC and BMP: 06/26/18 05:37 06/26/18 05:37 Abnormal Lab Findings: Abnormal Labs 06/14/18 06/14/18 06/14/18 13:50 16:22 16:22 WBC 15.9 H RBC 5.04 H Hgb Hct RDW Plt Count Lymph % (Auto) 8.0 L [place] % (Auto) 8.9 H Lymph # [place] # 1.4 H Seg Neutrophils % 82.9 H Seg Neutrophils # 13.2 H Sodium Potassium Chloride Carbon Dioxide BUN Creatinine Glucose POC Glucose 149 H Lactic Acid 2.90 H* Calcium Phosphorus AST Troponin T Serum Total Protein Total Protein Albumin Ethuk-1-Bpjnqmves PEP Interpretation Triglycerides LDL Cholesterol Direct HDL Cholesterol Urine Creatinine Urine Chloride Salicylates Acetaminophen [place] Tot Complement (CH50) 06/14/18 06/14/18 06/14/18 16:22 Unknown Unknown WBC RBC Hgb Hct RDW Plt Count Lymph % (Auto) [place] % (Auto) Lymph # [place] # Seg Neutrophils % Seg Neutrophils # Sodium 146 H Potassium Chloride Carbon Dioxide BUN 60 H Creatinine 2.9 H Glucose 170 H POC Glucose Lactic Acid 3.40 H* Calcium 11.2 H Phosphorus AST 51 H Troponin T 0.036 H Serum Total Protein Total Protein 8.3 H Albumin Nxqgw-1-Urxdtuiqz PEP Interpretation Triglycerides 156 H LDL Cholesterol Direct 17 L HDL Cholesterol 33 L Urine Creatinine Urine Chloride Salicylates Acetaminophen [place] 1.5 H Tot Complement (CH50) 06/14/18 06/14/18 06/15/18 Unknown Unknown 13:38 WBC 14.3 H RBC Hgb Hct RDW 15.7 H Plt Count Lymph % (Auto) [place] % (Auto) Lymph # [place] # Seg Neutrophils % Seg Neutrophils # Sodium Potassium Chloride Carbon Dioxide BUN Creatinine Glucose POC Glucose Lactic Acid Calcium Phosphorus AST Troponin T Serum Total Protein Total Protein Albumin Mycfg-5-Nezlhuyqt PEP Interpretation Triglycerides LDL Cholesterol Direct HDL Cholesterol Urine Creatinine Urine Chloride Salicylates < 0.3 L Acetaminophen < 5.0 L [place] Tot Complement (CH50) 06/15/18 06/15/18 06/16/18 13:38 22:24 06:18 WBC 11.4 H RBC 5.05 H Hgb Hct RDW 15.6 H Plt Count Lymph % (Auto) 11.7 L [place] % (Auto) 8.8 H Lymph # [place] # 1.0 H Seg Neutrophils % 79.1 H Seg Neutrophils # 9.0 H Sodium 153 H Potassium Chloride 116.3 H Carbon Dioxide 21 L BUN 46 H Creatinine 1.9 H Glucose 124 H POC Glucose 113 H Lactic Acid Calcium Phosphorus AST Troponin T Serum Total Protein Total Protein Albumin Fidcu-6-Kxmwfzacf PEP Interpretation Triglycerides LDL Cholesterol Direct HDL Cholesterol Urine Creatinine Urine Chloride Salicylates Acetaminophen [place] Tot Complement (CH50) 06/16/18 06/17/18 06/17/18 06:18 06:55 06:55 WBC RBC 5.13 H Hgb 15.4 H Hct 46.4 H RDW 15.8 H Plt Count Lymph % (Auto) [place] % (Auto) 8.5 H Lymph # [place] # Seg Neutrophils % 74.7 H Seg Neutrophils # Sodium 155 H 154 H Potassium 3.4 L Chloride 117.3 H 116.2 H Carbon Dioxide 21 L BUN 42 H 31 H Creatinine 1.8 H Glucose 128 H 120 H POC Glucose Lactic Acid Calcium Phosphorus 2.10 L AST Troponin T Serum Total Protein Total Protein Albumin Sblud-4-Kvvculbkt PEP Interpretation Triglycerides LDL Cholesterol Direct HDL Cholesterol Urine Creatinine Urine Chloride Salicylates Acetaminophen [place] Tot Complement (CH50) 06/17/18 06/17/18 06/18/18 11:56 11:56 06:28 WBC RBC 5.12 H Hgb Hct 47.1 H RDW 15.7 H Plt Count Lymph % (Auto) [place] % (Auto) 9.0 H Lymph # 1.1 L [place] # Seg Neutrophils % 74.9 H Seg Neutrophils # Sodium Potassium Chloride Carbon Dioxide BUN Creatinine Glucose POC Glucose Lactic Acid Calcium Phosphorus AST Troponin T Serum Total Protein 6.0 L Total Protein Albumin 3.3 L Rrboz-7-Mipdzitfs 1.0 H PEP Interpretation see below H Triglycerides LDL Cholesterol Direct HDL Cholesterol Urine Creatinine Urine Chloride Salicylates Acetaminophen [place] Tot Complement (CH50) >60 H 06/18/18 06/19/18 06/19/18 06:28 01:23 06:23 WBC RBC Hgb Hct RDW 15.6 H Plt Count Lymph % (Auto) [place] % (Auto) 8.8 H Lymph # [place] # 0.9 H Seg Neutrophils % 73.3 H Seg Neutrophils # Sodium 156 H 150 H Potassium Chloride 118.4 H Carbon Dioxide BUN 29 H Creatinine Glucose 132 H POC Glucose Lactic Acid Calcium Phosphorus AST Troponin T Serum Total Protein Total Protein Albumin Tofer-7-Igrrecvsx PEP Interpretation Triglycerides LDL Cholesterol Direct HDL Cholesterol Urine Creatinine Urine Chloride Salicylates Acetaminophen [place] Tot Complement (CH50) 06/19/18 06/19/18 06/19/18 06:23 11:26 16:59 WBC RBC Hgb Hct RDW Plt Count Lymph % (Auto) [place] % (Auto) Lymph # [place] # Seg Neutrophils % Seg Neutrophils # Sodium 152 H Potassium 3.5 L Chloride 114.5 H Carbon Dioxide BUN 24 H Creatinine Glucose 144 H POC Glucose 143 H 131 H Lactic Acid Calcium Phosphorus 2.40 L AST Troponin T Serum Total Protein Total Protein Albumin Irtzk-4-Njqeaxqgg PEP Interpretation Triglycerides LDL Cholesterol Direct HDL Cholesterol Urine Creatinine Urine Chloride Salicylates Acetaminophen [place] Tot Complement (CH50) 06/19/18 06/20/18 06/20/18 19:31 06:18 06:18 WBC RBC Hgb Hct RDW Plt Count 139 L Lymph % (Auto) [place] % (Auto) 8.6 H Lymph # [place] # Seg Neutrophils % 72.8 H Seg Neutrophils # Sodium 146 H Potassium Chloride 110.3 H Carbon Dioxide BUN Creatinine Glucose 115 H POC Glucose Lactic Acid Calcium Phosphorus AST Troponin T Serum Total Protein Total Protein Albumin Ukaqn-8-Qkwwdepxq PEP Interpretation Triglycerides LDL Cholesterol Direct HDL Cholesterol Urine Creatinine 129.8 H Urine Chloride 68.2 L Salicylates Acetaminophen [place] Tot Complement (CH50) 06/20/18 06/20/18 06/20/18 06:43 11:58 17:07 WBC RBC Hgb Hct RDW Plt Count Lymph % (Auto) [place] % (Auto) Lymph # [place] # Seg Neutrophils % Seg Neutrophils # Sodium Potassium Chloride Carbon Dioxide BUN Creatinine Glucose POC Glucose 107 H 157 H 120 H Lactic Acid Calcium Phosphorus AST Troponin T Serum Total Protein Total Protein Albumin Ivdwa-7-Xzilwmtte PEP Interpretation Triglycerides LDL Cholesterol Direct HDL Cholesterol Urine Creatinine Urine Chloride Salicylates Acetaminophen [place] Tot Complement (CH50) 06/21/18 06/21/18 06/21/18 06:19 11:17 16:00 WBC RBC 5.23 H Hgb 15.7 H Hct 48.1 H RDW 15.8 H Plt Count 134 L Lymph % (Auto) [place] % (Auto) 9.9 H Lymph # [place] # 0.9 H Seg Neutrophils % 70.2 H Seg Neutrophils # Sodium Potassium Chloride Carbon Dioxide BUN Creatinine Glucose POC Glucose 155 H 127 H Lactic Acid Calcium Phosphorus AST Troponin T Serum Total Protein Total Protein Albumin Hfcql-1-Ajszaxcpl PEP Interpretation Triglycerides LDL Cholesterol Direct HDL Cholesterol Urine Creatinine Urine Chloride Salicylates Acetaminophen [place] Tot Complement (CH50) 06/21/18 06/22/18 06/22/18 21:46 06:51 06:57 WBC RBC 5.07 H Hgb Hct RDW 15.4 H Plt Count Lymph % (Auto) [place] % (Auto) 12.1 H Lymph # [place] # 1.1 H Seg Neutrophils % 70.8 H Seg Neutrophils # Sodium Potassium Chloride Carbon Dioxide BUN Creatinine Glucose POC Glucose 108 H 111 H Lactic Acid Calcium Phosphorus AST Troponin T Serum Total Protein Total Protein Albumin Bfpyu-6-Fswbimqag PEP Interpretation Triglycerides LDL Cholesterol Direct HDL Cholesterol Urine Creatinine Urine Chloride Salicylates Acetaminophen [place] Tot Complement (CH50) 06/22/18 06/22/18 06/22/18 06:57 12:01 15:59 WBC RBC Hgb Hct RDW Plt Count Lymph % (Auto) [place] % (Auto) Lymph # [place] # Seg Neutrophils % Seg Neutrophils # Sodium Potassium 3.4 L Chloride Carbon Dioxide BUN Creatinine Glucose 117 H POC Glucose 126 H 168 H Lactic Acid Calcium Phosphorus AST Troponin T Serum Total Protein Total Protein Albumin Nxnyq-0-Bnyhageue PEP Interpretation Triglycerides LDL Cholesterol Direct HDL Cholesterol Urine Creatinine Urine Chloride Salicylates Acetaminophen [place] Tot Complement (CH50) 06/22/18 06/22/18 06/23/18 17:48 21:38 05:18 WBC RBC Hgb Hct RDW Plt Count Lymph % (Auto) [place] % (Auto) Lymph # [place] # Seg Neutrophils % Seg Neutrophils # Sodium Potassium Chloride Carbon Dioxide BUN Creatinine Glucose POC Glucose 110 H 110 H 106 H Lactic Acid Calcium Phosphorus AST Troponin T Serum Total Protein Total Protein Albumin Krbcg-1-Itdwxasta PEP Interpretation Triglycerides LDL Cholesterol Direct HDL Cholesterol Urine Creatinine Urine Chloride Salicylates Acetaminophen [place] Tot Complement (CH50) 06/23/18 06/23/18 06/23/18 07:25 07:25 11:10 WBC RBC 5.28 H Hgb 15.6 H Hct 47.5 H RDW Plt Count Lymph % (Auto) [place] % (Auto) 12.9 H Lymph # [place] # 1.1 H Seg Neutrophils % Seg Neutrophils # Sodium Potassium 3.2 L Chloride Carbon Dioxide BUN Creatinine Glucose 106 H POC Glucose 188 H Lactic Acid Calcium Phosphorus AST Troponin T Serum Total Protein Total Protein Albumin Lglat-7-Lbrgeqyts PEP Interpretation Triglycerides LDL Cholesterol Direct HDL Cholesterol Urine Creatinine Urine Chloride Salicylates Acetaminophen [place] Tot Complement (CH50) 06/23/18 06/23/18 06/24/18 15:44 21:35 10:55 WBC RBC Hgb Hct RDW Plt Count Lymph % (Auto) [place] % (Auto) Lymph # [place] # Seg Neutrophils % Seg Neutrophils # Sodium Potassium Chloride Carbon Dioxide BUN Creatinine Glucose POC Glucose 157 H 111 H 137 H Lactic Acid Calcium Phosphorus AST Troponin T Serum Total Protein Total Protein Albumin Xrexa-5-Fqysgsfax PEP Interpretation Triglycerides LDL Cholesterol Direct HDL Cholesterol Urine Creatinine Urine Chloride Salicylates Acetaminophen [place] Tot Complement (CH50) 06/26/18 06/26/18 06/26/18 05:37 05:37 11:43 WBC RBC 5.14 H Hgb 15.4 H Hct 46.5 H RDW 15.4 H Plt Count Lymph % (Auto) [place] % (Auto) Lymph # [place] # Seg Neutrophils % Seg Neutrophils # Sodium Potassium Chloride Carbon Dioxide BUN Creatinine Glucose 101 H POC Glucose 162 H Lactic Acid Calcium Phosphorus AST Troponin T Serum Total Protein Total Protein Albumin Queto-2-Fttjkynxi PEP Interpretation Triglycerides LDL Cholesterol Direct HDL Cholesterol Urine Creatinine Urine Chloride Salicylates Acetaminophen [place] Tot Complement (CH50) 06/26/18 06/26/18 16:17 21:24 WBC RBC Hgb Hct RDW Plt Count Lymph % (Auto) [place] % (Auto) Lymph # [place] # Seg Neutrophils % Seg Neutrophils # Sodium Potassium Chloride Carbon Dioxide BUN Creatinine Glucose POC Glucose 111 H 106 H Lactic Acid Calcium Phosphorus AST Troponin T Serum Total Protein Total Protein Albumin Faojm-5-Zageoiqri PEP Interpretation Triglycerides LDL Cholesterol Direct HDL Cholesterol Urine Creatinine Urine Chloride Salicylates Acetaminophen [place] Tot Complement (CH50)
--- NOTE | 2018-07-01 18:17 | Progress Note ---
Subjective - Reason for Consult Consult date: 07/01/18 Reason for consult: Psychiatric Follow-up Evaluation - Chief Complaint Chief complaint: "I feel restless" Patient is an 83 year old white male who presents to the emergency room with altered mental status. Today the patient is calm and cooperative during the assessment. Per staff patient is somewhat confused. He reports good sleep and appetite. He denies SI/HI's, AVH's, and delusions. He denies any side effects of his medications. He stated that he will be discharged once placement is approved. Mental Status Exam - Vital signs Last Vital Signs Temp 97.7 F 07/01/18 15:50 Pulse 60 07/01/18 15:50 Resp 20 07/01/18 15:50 BP 146/66 07/01/18 15:50 Pulse Ox 96 07/01/18 15:50 - Exam Narrative exam: Mental Status Exam General Appearance: Causally Dressed-hospital gown Eye Contact: Intermittent Orientation: Alert and oriented x 4 ( person, place, time, and situation) Attitude/Behavior: Cooperative Sensorium: Distracted Psychomotor & Musculoskeletal Activity: Laying in bed Mood: "Happy" Affect: Constricted Speech/Language: Regular rate and tone Thought Processes: Circumstantial Thought Content: Logical, linear Perception: Patient denies A/V/T hallucinations Concentration/Attention: Impaired Suicidal Ideations/Plan: Patient denies Homicidal Ideations/Plan: Patient denies Insight: Appropriate Judgment: Appropriate Assessment and Plan Impression: Hx of Bipolar DO per the patient and his sister Keiry Medley. Today the patient is calm and cooperative during the assessment. He denies SI/HI, A/VH, and delusions. On 06/22/18 lithium level 0.2. Medical: Acute Encephalopathy. 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 No acute intracranial process noted. No change. Persistent left mastoiditis. Recommendation/Plan: 1. Continue home medication Leupp 300 mg PO daily for mood and Trazodone 50 mg PO HS for sleep. 2. Acute rehab vs SNF placement when discharged. Discussed possible suicidality/ medication induced darlin/priapism with patient reference Trazodone. 3. Will continue to monitor mood, sleep, appetite, compliance, lithium level, and side effects. 4. Will order STAT lithium level.
== END 2018-07-01 18:43 | DRG 871 ==
LOC: ED 12:32 → 4A 18:46 → 3A 06-24 17:37
PROVIDERS: ADMIT Internal Medicine; ATTEND Internal Medicine
DX: A41.9 Sepsis, unspecified organism (principal); N17.0 Acute kidney failure with tubular necrosis; G93.41 Metabolic encephalopathy; I63.9 Cerebral infarction, unspecified; E87.2 Acidosis; E87.0 Hyperosmolality and hypernatremia; G81.91 Hemiplegia, unspecified affecting right dominant side; E66.9 Obesity, unspecified; F20.9 Schizophrenia, unspecified; Z60.2 Problems related to living alone; I10 Essential (primary) hypertension; E11.9 Type 2 diabetes mellitus without complications; T56.891A Toxic effect of other metals, accidental (unintentional), initial encounter; R47.1 Dysarthria and anarthria; E87.6 Hypokalemia; F31.9 Bipolar disorder, unspecified; Z68.28 Body mass index [BMI] 28.0-28.9, adult; Z88.0 Allergy status to penicillin
CPT/HCPCS: 36415; 70450; 71045; 80048; 80053; 80061; 80178; 80307; 80320; 81001; 82140; 82436; 82570; 82962; 83520; 83935; 84100; 84165; 84295; 84300; 84439; 84443; 84484; 85025; 85027; 86021; 86038; 86160; 86162; 86706; 86803; 87040; 87086; 87806; 93005; 93010; 96360; 96361; G0480; G0515-GN; G8978-GP; G8979-GP; G8999-GN; G9186-GN; J0360; J1956; J2060; J2405; J3480; J7030; J7070